=== PATIENT | male | born 1940 | race Caucasian/White ===

== ENCOUNTER 2020-04-02 14:22 | Emergency (ER) | payer MEDICARE, SELFPAY ==
[2020-04-02] VITALS (26 sets, daily range): BP systolic 121–160; BP diastolic 81–99; PULSE 81–141; RESP 14–31; TEMP 36.8; O2SAT 92–94; BMI 33.9
--- NOTE | 2020-04-02 16:44 | ECG_ITS ---
[facility] Test Date: 2020-04-02 Pat Name: Rafat Park Department: Room: Gender: Male Medical Practice Assistant: : 1940 Requested By: Devorah Herrera I Order Number: [id number] Jackie MD: Sandy Michele M.D. Measurements Intervals [place] Rate: 99 P: GA: -1 QRS: -74 QRSD: 150 T: 23 QT: 364 QTc: 469 Interpretive Statements ATRIAL FIBRILLATION MARKED LEFT AXIS DEVIATION [QRS AXIS < -30] RIGHT BUNDLE BRANCH BLOCK [120+ ms QRS DURATION, UPRIGHT V1, 40+ ms S IN I/aVL/V4/V5/V6] No previous ECG available for comparison Electronically Signed On 04-02-2020 23:39:31 FRUIT ROOM HAND by Sandy Michele M.D. [id number]
--- NOTE | 2020-04-02 16:44 | XR_ITS ---
WS: [id number] XR chest 1V portable [id number] REASON FOR EXAM: chest pain FINDINGS: The chest is unchanged compared to previous examination of 12/26/2019. There is a large hiatal hernia. The heart is mildly enlarged. No acute pulmonary parenchymal or pleural abnormality is identified. Mild changes of degenerative spondylosis in the lower and mid thoracic spine. XR/XR chest 1V portable [id number] IMPRESSION: No acute chest abnormality identified.
--- NOTE | 2020-04-02 16:47 | ED_ITS ---
HPI - Chest Pain General: Chief Complaint: Chest Pain Stated Complaint: Chest Pain Time Seen by Provider: 04/02/20 15:52 Source: patient and family () Mode of arrival: ambulatory History of Present Illness: HPI narrative: Intermittent left-sided chest pain for the last 2 months but got severe today. Pain is nonradiating, described as sharp. He denies nausea or vomiting, diaphoresis, dizziness. He wants to be evaluated as the pain is increasing. MD complaint: chest pain Onset (ago): month(s) (2) Timing of current episode: episodic Prior episodes: Yes Onset: during rest Pain location: substernal Pain radiation: none Quality: sharp Relieving factors: nothing Exacerbating factors: nothing Associated symptoms: Deny abdominal pain, diaphoresis, dyspnea, fever(s), leg edema, nausea, palpitations, sense of impending doom, syncope or vomiting Treatment prior to arrival: none Review of Systems General: Reports: 10 or more systems reviewed and unremarkable except in HPI and below Const: Denies: fever(s) or diaphoresis Eyes: Denies: change in vision or blurry vision ENMT: Denies: throat pain, enlarged tonsils, odynophagia, hoarseness, mouth pain or swelling of lips/tongue Card: Denies: palpitations or syncope Resp: Denies: dyspnea GI: Denies: abdominal pain, nausea or vomiting : Denies: flank pain, dysuria, urinary frequency, urinary urgency or urinary hesitancy Musc: Denies: neck pain, back pain or extremity swelling Skin/Breast: Denies: rash, pruritus or erythema Neuro: Denies: headache(s), numbness in extremities or weakness in extremities Endo: Denies: polyuria, polydipsia or tired all the time Physical Exam Const: COMMON NORMALS: no acute distress, average body habitus, patient oriented x3, no limitations, healthy appearing, alert and well nourished HENMT: COMMON NORMALS: normocephalic, atraumatic and moist oral mucous membranes HEAD & SCALP: normocephalic and atraumatic Neck/C-Spine: COMMON NORMALS: no meningeal signs and no JVD Chest: COMMONS NORMALS: normal inspection of the chest and normal palpation of entire chest wall Resp: COMMON NORMALS: normal respiratory effort, No retractions, No use of accessory muscles, clear to auscultation bilaterally and percussion normal AUSCULTATION: clear to auscultation bilaterally PERCUSSION: percussion normal Cardio: COMMON NORMALS: no JVD, regular rate, regular rhythm, S1 normal heart sound present, S2 normal heart sound present, No gallops present (Cardio), No clicks present (Cardio), No murmurs present (Cardio), No rub (Cardio) and Peripheral pulses 2+ throughout RATE: regular rate RHYTHM: regular rhythm HEART SOUNDS: S1 normal heart sound present and S2 normal heart sound present PERIPHERAL PULSES: Peripheral pulses 2+ throughout GI: COMMON NORMALS: Normal to inspection, nondistended, normoactive bowel sounds present, Soft to palpation, non-tender, No hepatosplenomegaly present, no masses and no bruits PALPATION: Yes Soft to palpation and Yes No hepatosplenomegaly present Extremity: COMMON NORMALS: normal to inspection, full ROM, capillary refill normal, no calf tenderness and no pedal edema Neuro: COMMON NORMALS: patient oriented x3 SENSORIUM/ORIENTATION: Yes alert MENINGEAL SIGNS: Yes no meningeal signs Skin: COMMON NORMALS: no rashes or lesions noted, no wounds, turgor normal, no jaundice, no petechiae and no mottling GENERAL SKIN EXAM: no rashes or lesions noted and turgor normal Course Reevaluation(s): Reevaluation #1: Discussed his lab and imaging findings with him. I explained my conversation with the radiologist and that the patient most likely has primary lung cancer. Advised outpatient work-up and I will make a referral to oncology and pulmonology for further evaluation. He voiced understanding and is in agreement with the plan. Time: 20:31 Vital Signs: Vital signs: Vital Signs Temperature 98.3 F 04/02/20 14:30 Pulse Rate 120 H 04/02/20 20:55 Respiratory Rate 14 04/02/20 20:55 Blood Pressure 150/99 04/02/20 20:55 Pulse Oximetry 93 04/02/20 20:55 MDM - Chest Pain MDM Narrative: Medical decision making narrative: Patient presents to the emergency department with chest pain that has been ongoing for about 2 months but worsened today. Unfortunately on examination and evaluation today a diagnosis of a lung mass was made which is likely malignant given all the characteristics on the CT scan. I explained as much to the patient and made a referral to oncology and pulmonology for further evaluation including possible biopsy. Medical Records: Attestation: I reviewed the patient's medical records. Lab Data: Attestation: I reviewed the patient's lab results. Labs: Lab Results 04/02/20 04/02/20 04/02/20 Range/Units 15:16 15:16 15:16 WBC 6.3 (4.0-10.0) 10^3/ uL RBC 5.57 H (4.1-5.3) 10^6/u L Hgb 15.1 (11.7-16.6) g/dL Hct 48.2 (42.0-52.0) % MCV 86.5 (80-94) fL MCH 27.1 L (28.0-34.0) pg MCHC 31.3 (30.0-36.0) g/dL RDW 14.0 (12.1-15.1) % Plt Count 248 (130-400) 10^3/c mm MPV 10.3 (7.4-10.4) fL Neut % (Auto) 57.1 % Lymph % (Auto) 25.9 % [place] % (Auto) 11.7 % Eos % (Auto) 3.7 % Baso % (Auto) 1.3 % Neut # (Auto) 3.60 (1.8-7.7) 10^3/u L Lymph # (Auto) 1.6 (0.8-4.8) 10^3/u L [place] # (Auto) 0.7 (0.2-0.9) 10^3/u L Eos # (Auto) 0.2 (0.0-0.8) 10^3/u L Baso # (Auto) 0.1 (0.0-0.1) 10^3/u L Nucleated RBC % (a uto) 0 % Nucleated RBCs # 0.0 /100WBC D-Dimer 1.67 H (0-0.59) ug/mIFE U Sodium 137 (136-145) mmol/L Potassium 4.1 (3.5-5.1) mmol/L Chloride 99 (98-107) mmol/L Carbon Dioxide 28 (22-29) mmol/L Anion Gap 14.1 (5-19) BUN 19 (8-23) mg/dL Creatinine 0.9 (0.7-1.2) mg/dL GFR Calculation Not Reportable Glucose 102 (65-115) mg/dL Calculated Osmolal ity 286 (285-295) mOsm/k g Calcium 9.6 (8.5-10.5) mg/dL Total Bilirubin 0.3 (0.15-1.2) mg/dL AST 26 (0-40) U/L ALT 17 (0-41) U/L Alkaline Phosphata se 86 (40-130) IU/L Creatine Kinase 85 (39-308) U/L Troponin T Baselin e (0-15) ng/L Troponin T 120 Min [place] Delta Troponin T NT-Pro-B Natriuret Pep 197 (0-450) pg/mL Total Protein 7.3 (6.6-8.7) g/dL Albumin 4.4 (3.5-5.2) g/dL Globulin 2.9 (1.3-4.6) g/dL Lipase 49 (13-60) U/L 04/02/20 04/02/20 04/02/20 Range/Units 15:16 18:19 18:52 WBC (4.0-10.0) 10^3/ uL RBC (4.1-5.3) 10^6/u L Hgb (11.7-16.6) g/dL Hct (42.0-52.0) % MCV (80-94) fL MCH (28.0-34.0) pg MCHC (30.0-36.0) g/dL RDW (12.1-15.1) % Plt Count (130-400) 10^3/c mm MPV (7.4-10.4) fL Neut % (Auto) % Lymph % (Auto) % [place] % (Auto) % Eos % (Auto) % Baso % (Auto) % Neut # (Auto) (1.8-7.7) 10^3/u L Lymph # (Auto) (0.8-4.8) 10^3/u L [place] # (Auto) (0.2-0.9) 10^3/u L Eos # (Auto) (0.0-0.8) 10^3/u L Baso # (Auto) (0.0-0.1) 10^3/u L Nucleated RBC % (a uto) % Nucleated RBCs # /100WBC D-Dimer (0-0.59) ug/mIFE U Sodium (136-145) mmol/L Potassium (3.5-5.1) mmol/L Chloride (98-107) mmol/L Carbon Dioxide (22-29) mmol/L Anion Gap (5-19) BUN (8-23) mg/dL Creatinine (0.7-1.2) mg/dL GFR Calculation Glucose (65-115) mg/dL Calculated Osmolal ity (285-295) mOsm/k g Calcium (8.5-10.5) mg/dL Total Bilirubin (0.15-1.2) mg/dL AST (0-40) U/L ALT (0-41) U/L Alkaline Phosphata se (40-130) IU/L Creatine Kinase (39-308) U/L Troponin T Baselin e 22 H (0-15) ng/L Troponin T 120 Min [place] Cancelled 23.78 H Delta Troponin T Cancelled 1.78 NT-Pro-B Natriuret Pep (0-450) pg/mL Total Protein (6.6-8.7) g/dL Albumin (3.5-5.2) g/dL Globulin (1.3-4.6) g/dL Lipase (13-60) U/L Imaging Data^: CXR: Attestation: I personally reviewed and interpreted this imaging study as follows: Radiologist's impression: [address] [address] XRay Report Signed Patient: Robert Park #: [id number] : 1941Acct#:[id number] Age/Sex: 79 / MADM Date: 04/02/20 Loc: ERRoom/Bed: Attending Dr: Ordering Provider/Ordering MD: Devorah Ortiz MD, [facility] of Service: 04/02/20 Procedure(s): XR chest 1V portable [id number] Accession Number(s): [id number] Report Number: [id number] WS: [id number] XR chest 1V portable [id number] REASON FOR EXAM: chest pain FINDINGS: The chest is unchanged compared to previous examination of 12/26/2019. There is a large hiatal hernia. The heart is mildly enlarged. No acute pulmonary parenchymal or pleural abnormality is identified. Mild changes of degenerative spondylosis in the lower and mid thoracic spine. XR/XR chest 1V portable [id number] IMPRESSION: No acute chest abnormality identified. Dictated By:Eddie Jimenez Jr, MD Signed By:Eddie Jimenez Jr MDSigned Date/Time:04/02/201727 DD/ 24 CTA Chest: Attestation: I personally reviewed and interpreted this imaging study as follows: Radiologist's impression: [address] [place] [address] CT Scan Report Signed with Addenda Patient: Robert Park #: [id number] : 1941Acct#:[id number] Age/Sex: 79 / MADM Date: 04/02/20 Loc: ERRoom/Bed: Attending Dr: Ordering Provider/Ordering MD: Devorah Ortiz MD, [facility] [place] of Service: 04/02/20 Procedure(s): CT angio chest PE protcl [id number] Accession Number(s): [id number] Report Number: [id number]/CT angio chest PE protcl [id number] THIS REPORT CONTAINS FINDINGS THAT MAY BE CRITICAL TO PATIENT CARE. The findings were verbally communicated via telephone conference with DEVORAH ORTIZ at 8:22 PM ELECTRICAL SYSTEM SPECIALIST on 04/02/2020. The findings were acknowledged and understood. Radiation Dose CTDIVOL = (mGy): DLP = 639.41 (mGy-cm) Addendum Dictated By: Nitish Moreau Addendum Signed By: Rody Moreau Date/Time:04/02/202037 Addendum Cosigned By: PROCEDURE INFORMATION: Exam: CT Angiography Chest With Contrast Exam date and time: 04/02/2020 7:30 PM Age: 79 years old Clinical indication: Shortness of breath; Chest pain; Additional info: Chest pain, tachycardia, SOB TECHNIQUE: Imaging protocol: Computed tomographic angiography of the chest with intravenous contrast. 3D rendering (Not supervised by radiologist): MIP and/or 3D reconstructed images were created by the technologist. Radiation optimization: All CT scans at this facility use at least one of these dose optimization techniques: automated exposure control; mA and/or kV adjustment per patient size (includes targeted exams where dose is matched to clinical indication); or iterative reconstruction. Contrast material: OMNI 350; Contrast volume: 81 ml; Contrast route: INTRAVENOUS (IV); COMPARISON: No relevant prior studies available. RADIATION DOSE METRICS: Total DLP (mGy-cm): 639.41 FINDINGS: Pulmonary arteries: No visible evidence of pulmonary embolism/pulmonary arterial thrombus. Aorta: The thoracic aorta is nonaneurysmal. No intimal flap or dissection. Moderate arterial sclerotic disease. Tortuous thoracic aorta which can be seen in hypertensive cardiovascular disease Lungs: Small 7 mm pulmonary nodule right lower lobe potential hematogenous metastatic focus. Centrilobular emphysema. No visible active interstitial or alveolar airspace disease. Pleural space: Scant right pleural effusion. Numerous small subpleural based nodules right lung most likely metastatic foci. Largest subpleural metastatic soft tissue nodule measures approximately 26 mm located near the costovertebral junction of T11 on the right. Heart: Coronary artery disease. No visible pericardial effusion. Left ventricular prominence. Mediastinal space: Large middle mediastinal bulky tumor mass measuring approximately 9.9 cm x 5.8 cm x 9.7cm. Direct tumor extension into the right hilum. Pretracheal superior mediastinal tumor mass, which displaces the thyroid, measures approximately 33 mm x 20 mm x 30 mm. Anterior mediastinal tumor nodule measures 21 mm x 15 mm x 18 mm. Other anterior, middle, and posterior mediastinal tumor foci are present. The aformention findings could be secondary to malignant primary lung carcinoma versus malignant lymphoma as primary differential considerations. Lymph nodes: See Mediastinal space finding. Liver: Ill-defined right hepatic lobe tumor mass measuring approximately 65 mm x 55 mm x 56 mm. Gallbladder and bile ducts: Cholelithiasis. Bones/joints: No visible acute osseous abnormality. No visible osteolytic or osteoblastic destructive process. Old left rib fractures. Soft tissues: Unremarkable. Other findings: Suspected small nonobstructing mucus plaque proximal left mainstem bronchus. Large hiatal hernia. CT/CT angio chest PE protcl [id number] IMPRESSION: 1. No visible evidence of pulmonary embolism/pulmonary arterial thrombus. 2. Large middle mediastinal bulky tumor mass with evidence of numerous satellite metastatic tumor involvement of the superior, anterior, middle, and posterior mediastinum. 3. Numerous small subpleural based nodules right lung most likely metastatic foci. 4. Scant malignant right pleural effusion. 5. The aformention findings could be secondary to malignant primary lung carcinoma versus malignant lymphoma as primary differential considerations. 6. Right hepatic lobe tumor mass most likely metastasis. 7. Small 7 mm pulmonary nodule right lower lobe most likely hematogenous metastatic focus. 8. Centrilobular emphysema. 9. Other nonurgent, nonemergent, chronic, and age related findings as detailed in text above. Radiation Dose CTDIVOL = (mGy): DLP = 639.41 (mGy-cm) Dictated By:Nitish Moreau Signed By:Nitish MoreauSigndaniel Date/Time:04/02/202037 DD/ 35 EKG Data^: EKG 1: Attestation: I personally reviewed and interpreted this EKG as follows: EKG interpretation date: 04/02/20 EKG interpretation time: 18:26 Prior EKG tracings: not available for review Interpretation: Sinus rhythm with frequent premature complexes. Heart rate 92 bpm. Right bundle branch block. Right axis deviation. No ST changes. Discharge Plan Discharge Patient Disposition: Home Clinical Impression: Mass of lung Condition: Stable Prescriptions: [place] 5-325 mg tablet 1 tab PO Q8H PRN (Reason: pain) Qty: 12 RF: 0 Continued ipratropium-albuterol 0.5 mg-3 mg(2.5 mg base)/3 mL solution for nebulization See Rx Instructions .ROUTE .COMPLEX PRN (Reason: cough/shortness of breath) RF: 0 omeprazole 20 mg Capsule,Delayed Release(Dr/Ec) 20 mg PO DAILY RF: 0 aspirin 81 mg Tablet 81 mg PO DAILY RF: 0 pravastatin 20 mg tablet 20 mg PO DAILY RF: 0 hydrochlorothiazide 25 mg tablet 25 mg PO DAILY RF: 0 albuterol sulfate 90 mcg/actuation HFA aerosol inhaler See Rx Instructions .ROUTE .COMPLEX PRN (Reason: Shortness Of Breath) RF: 0 Symbicort 160-4.5 mcg/actuation HFA aerosol inhaler 2 puff INHALATION BID RF: 0 Mucinex 1,200 mg Tablet Extended Release 12hr 1,200 mg PO DAILY RF: 0 Discharge Orders: Discharge Order (Routine); Ordered 04/02/20 Ordered By: Devorah Ortiz Referrals: Pedro Pablo Rasheed DO [Primary Care Provider] - 1-3 days Discharge Diet: Usual diet Discharge Activity: Increase activity as tolerated Patient Instructions: Pulmonary Nodules (ED) Activity Restrictions/Additional Instructions: Return for any new or worsening symptoms. Take the pain medication as needed for pain. You will be contacted by case management to schedule an outpatient office visit with the lung specialist and another one with the cancer doctor. Follow-up with your primary care provider within 3 days. Coding Level of Care Code ED Bank Officer for Blanca Snell
[2020-04-02] MEDS: nitroglycerin 1 gm/inch oint Pkt 1 INCH TOPICAL (17:15)
[2020-04-02] MEDS: aspirin 81 mg Chew Tablet 324 MG PO (17:15)
[2020-04-02 17:16] LABS: Basophils # 0.1 10^3/uL (0.0-0.1); Basophils % 1.3 %; Eosinophils # 0.2 10^3/uL (0.0-0.8); Eosinophils % 3.7 %; Hematocrit 48.2 % (42.0-52.0); Hemoglobin 15.1 g/dL (11.7-16.6); Lymphocytes # 1.6 10^3/uL (0.8-4.8); Lymphocytes % 25.9 %; Mean Corpuscular HGB Conc 31.3 g/dL (30.0-36.0); Mean Corpuscular Hemoglobin 27.1 pg (28.0-34.0); Mean Corpuscular Volume 86.5 fL (80-94); Mean Platelet Volume 10.3 fL (7.4-10.4); Monocytes # 0.7 10^3/uL (0.2-0.9); Monocytes % 11.7 %; Neutrophils % 57.1 %; Nucleated Red Blood Cells % 0 %; Platelet Count 248 10^3/cmm (130-400); Red Blood Count 5.57 10^6/uL (4.1-5.3); White Blood Count 6.3 10^3/uL (4.0-10.0)
[2020-04-02 17:23] LABS: D Dimer 1.67 ug/mIFEU (0-0.59)
[2020-04-02 18:00] LABS: Albumin Level 4.4 g/dL (3.5-5.2); Blood Urea Nitrogen 19 mg/dL (8-23); Calcium 9.6 mg/dL (8.5-10.5); Carbon Dioxide 28 mmol/L (22-29); Chloride 99 mmol/L (98-107); Globulin 2.9 g/dL (1.3-4.6); Glucose 102 mg/dL (65-115); Lipase 49 U/L (13-60); Osmolality Calculated 286 mOsm/kg (285-295); Sodium 137 mmol/L (136-145); Total Bilirubin 0.3 mg/dL (0.15-1.2); Total Protein 7.3 g/dL (6.6-8.7)
[2020-04-02 18:36] LABS: Alanine Aminotransferase 17 U/L (0-41); Anion Gap 14.1 (5-19); Aspartate Amino Transferase 26 U/L (0-40); Creatine Phosphokinase 85 U/L (39-308); NT Pro B Type Natriuretic Pept 197 pg/mL (0-450); Potassium 4.1 mmol/L (3.5-5.1)
[2020-04-02 18:37] LABS: Alkaline Phosphatase 86 IU/L (40-130)
[2020-04-02 18:44] LABS: Troponin(5th) Baseline 22 ng/L (0-15)
--- NOTE | 2020-04-02 18:44 | ECG_ITS ---
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 Measurements Intervals [place] Rate: 92 P: 73 MS: 204 QRS: 255 QRSD: 144 T: 33 QT: 363 QTc: 451 Interpretive Statements SINUS RHYTHM WITH FREQUENT SUPRAVENTRICULAR PREMATURE COMPLEXES RIGHT AXIS DEVIATION [QRS AXIS > 100] RIGHT BUNDLE BRANCH BLOCK [120+ ms QRS DURATION, UPRIGHT V1, 40+ ms S IN I/aVL/V4/V5/V6] Compared to ECG 04/02/2020 14:25:15 Right-axis deviation now present Atrial fibrillation no longer present Left-axis deviation no longer present Electronically Signed On 04-02-2020 18:50:35 CONE SEWER by Sandy Michele M.D. [id number] f
--- NOTE | 2020-04-02 19:00 | PC.NURSE ---
received report from PHIL Cabezas. Waiting on
--- NOTE | 2020-04-02 19:14 | PC.NURSE ---
Pt waiting for results. Pain is 2-3/10, much better per pt . Dull pain only.
--- NOTE | 2020-04-02 19:22 | CTR_ITS ---
PROCEDURE INFORMATION: Exam: CT Angiography Chest With Contrast Exam date and time: 04/02/2020 7:30 PM Age: 79 years old Clinical indication: Shortness of breath; Chest pain; Additional info: Chest pain, tachycardia, SOB TECHNIQUE: Imaging protocol: Computed tomographic angiography of the chest with intravenous contrast. 3D rendering (Not supervised by radiologist): MIP and/or 3D reconstructed images were created by the technologist. Radiation optimization: All CT scans at this facility use at least one of these dose optimization techniques: automated exposure control; mA and/or kV adjustment per patient size (includes targeted exams where dose is matched to clinical indication); or iterative reconstruction. Contrast material: OMNI 350; Contrast volume: 81 ml; Contrast route: INTRAVENOUS (IV); COMPARISON: No relevant prior studies available. RADIATION DOSE METRICS: Total DLP (mGy-cm): 639.41 FINDINGS: Pulmonary arteries: No visible evidence of pulmonary embolism/pulmonary arterial thrombus. Aorta: The thoracic aorta is nonaneurysmal. No intimal flap or dissection. Moderate arterial sclerotic disease. Tortuous thoracic aorta which can be seen in hypertensive cardiovascular disease Lungs: Small 7 mm pulmonary nodule right lower lobe potential hematogenous metastatic focus. Centrilobular emphysema. No visible active interstitial or alveolar airspace disease. Pleural space: Scant right pleural effusion. Numerous small subpleural based nodules right lung most likely metastatic foci. Largest subpleural metastatic soft tissue nodule measures approximately 26 mm located near the costovertebral junction of T11 on the right. Heart: Coronary artery disease. No visible pericardial effusion. Left ventricular prominence. Mediastinal space: Large middle mediastinal bulky tumor mass measuring approximately 9.9 cm x 5.8 cm x 9.7cm. Direct tumor extension into the right hilum. Pretracheal superior mediastinal tumor mass, which displaces the thyroid, measures approximately 33 mm x 20 mm x 30 mm. Anterior mediastinal tumor nodule measures 21 mm x 15 mm x 18 mm. Other anterior, middle, and posterior mediastinal tumor foci are present. The aformention findings could be secondary to malignant primary lung carcinoma versus malignant lymphoma as primary differential considerations. Lymph nodes: See Mediastinal space finding. Liver: Ill-defined right hepatic lobe tumor mass measuring approximately 65 mm x 55 mm x 56 mm. Gallbladder and bile ducts: Cholelithiasis. Bones/joints: No visible acute osseous abnormality. No visible osteolytic or osteoblastic destructive process. Old left rib fractures. Soft tissues: Unremarkable. Other findings: Suspected small nonobstructing mucus plaque proximal left mainstem bronchus. Large hiatal hernia. CT/CT angio chest PE protcl [id number] IMPRESSION: 1. No visible evidence of pulmonary embolism/pulmonary arterial thrombus. 2. Large middle mediastinal bulky tumor mass with evidence of numerous satellite metastatic tumor involvement of the superior, anterior, middle, and posterior mediastinum. 3. Numerous small subpleural based nodules right lung most likely metastatic foci. 4. Scant malignant right pleural effusion. 5. The aformention findings could be secondary to malignant primary lung carcinoma versus malignant lymphoma as primary differential considerations. 6. Right hepatic lobe tumor mass most likely metastasis. 7. Small 7 mm pulmonary nodule right lower lobe most likely hematogenous metastatic focus. 8. Centrilobular emphysema. 9. Other nonurgent, nonemergent, chronic, and age related findings as detailed in text above. Radiation Dose CTDIVOL = (mGy): DLP = 639.41 (mGy-cm)
[2020-04-02 19:40] LABS: Troponin 5 2HR 23.78 ng/L (0-15); Troponin 5 2HR Delta 1.78 ABS# (0-10)
[2020-04-02] MEDS: iohexol 350 mg/mL 100 mL Btl IV (19:52)
--- NOTE | 2020-04-02 20:36 | PC.NURSE ---
waiting for results. Pt continues to deny pain
--- NOTE | 2020-04-03 09:58 | DCPLANNER ---
quality assurance manager had message to schedule a follow up appointment for patient with oncology, and pulmonology. quality assurance manager called oncology, spoke with Yadira Miles, was told that patient would need to be seen by pulmonology first. quality assurance manager called [facility], spoke with Andree, a follow up appointment was scheduled for , April 05, 2020 at 9:[address] Bedolla. quality assurance manager called patient to inform patient of the scheduled appointment, unable to speak with patient at this time. A voicemail was left for patient to return leather case finisher phone call for appointment information.
--- NOTE | 2020-05-25 12:15 | DCPLANNER ---
Patient had a follow up appointment scheduled for 04.05.20 with [facility] - patient did attend appointment.
== END 2020-04-02 20:56 | disposition home or self-care (01) ==
PROVIDERS: Emergency Provider Family Medicine; PCP Internal Medicine
DX: R91.8 Other nonspecific abnormal finding of lung field (principal); Z79.82 Long term (current) use of aspirin
CPT/HCPCS: 12345; 71045; 71275; 80053; 82550; 83690; 83880; 84484; 85025; 85378; 93005; 99283; 99284; Q9967

== ENCOUNTER → 2020-04-04 05:22 | Outpatient (BNVA) | payer MEDICARE, SELFPAY | PROVIDERS: PCP Internal Medicine; Visit Provider Internal Medicine Critical Care Medicine | DX: R91.8 Other nonspecific abnormal finding of lung field (principal) | CPT/HCPCS: 87426 ==

== ENCOUNTER 2020-04-06 08:49 | Day surgery (SDC) | payer MEDICARE, SELFPAY ==
[2020-04-05 16:42] VITALS: BMI 33.1
[2020-04-06] VITALS (8 sets, daily range): BP systolic 113–192; BP diastolic 64–100; PULSE 81–122; RESP 16–20; TEMP 36.5–36.6; O2SAT 82–94
--- NOTE | 2020-04-06 08:51 | ANES.PREANE2 ---
Pre-Anesthetic Assessment Pre-Anesthetic Assessment: Height/Weight: Height 1.85 m Weight 113.852 kg Preop Diagnosis: Suspected lung cancer Proposed Procedure: Operation Date: 04/06/20 10:10 Proposed Procedures p Bronchoscopy R91.1 12200(Not Applicable) - Carola Bedolla MD s Ebus R91.1 05722(Not Applicable) - Carola Bedolla MD Was Beta Sergei taken within 24 hours: N/A Social: Social History: Tobacco and No alcohol Exam: Pre-Anes Outpt Exam: alert and oriented x 3 Additional Exam Findings (including area of procedure): Markedly diminished BS Airway: Submandibular: WNL Cervical ROM: WNL MP: 2 Pulmonary: Pulmonary: COPD, Cough and SOB CV/HEM: CV/HEM: CAD, CHF, HTN and NC : : Chronic renal Insufficiency Hepatic: Hepatic: None reported GI: GI: GERD Metabolic: Metabolic: DM and Hyperlipidemia Musc/skel: Musc/skel: OA/DJD Neuropsych: Neuropsych: None reported Anesthetic Plan: ASA status: 4 Anesthesia: General Other: Post op respiratory complications disc including cough and vent needs PFSH Anesthesia PFSH: Medical History Asthma COPD (chronic obstructive pulmonary disease) GERD (gastroesophageal reflux disease) HTN (hypertension) Hyperlipidemia Meniere disease Surgical History History of appendectomy Social History Smoking and tobacco status: former smoker Quit status (tobacco): has quit using tobacco Year quit tobacco: 2005 - Hx of 2PPD x 50 Alcohol intake: never Lives independently: Yes Household members: spouse Marital status: Current occupational status: retired History of recent travel: No Current gender identity: Male Data Anesthesia Cardiac Studies: No Data to Display
[2020-04-06] MEDS: sodium chloride 0.9% 1,000 ML 30 ML IV (10:05)
--- NOTE | 2020-04-06 12:02 | W.PM.OPSUD ---
Surgery/Procedure H&P Update DATE OF PROCEDURE: April 06, 2020 DATE H&P PERFORMED: 04/05/20 H&P UPDATE INFORMATION: I have reviewed H&P completed within last 30 days, I have examined patient prior to procedure and No changes to prior documentation PREOP DIAGNOSIS: Suspected lung cancer PLANNED PROCEDURE: Bronchoscopy with inspection of the airway, possible endobronchial biopsies, bronchoalveolar lavage, endobronchial survey transbronchial needle aspiration of lymph nodes. Operation Date: 04/06/20 10:10 Proposed Procedures p Bronchoscopy R91.1 92807(Not Applicable) - Carola Bedolla MD s Ebus R91.1 47481(Not Applicable) - Carola Bedolla MD
--- NOTE | 2020-04-06 12:41 | ECG_ITS ---
[facility] Test Date: 2020-04-06 Pat Name: Rafat Park Department: Room: Gender: Male Maintenance Controller: : 1940 Requested By: City[employer]er Order Number: [id number] Jackie MD: Loyd Baxter M.D. Measurements Intervals [place] Rate: 81 P: 74 NC: 206 QRS: -89 QRSD: 166 T: 46 QT: 439 QTc: 511 Interpretive Statements SINUS RHYTHM WITH FREQUENT SUPRAVENTRICULAR PREMATURE COMPLEXES MARKED LEFT AXIS DEVIATION [QRS AXIS < -30] RIGHT BUNDLE BRANCH BLOCK [120+ ms QRS DURATION, UPRIGHT V1, 40+ ms S IN I/aVL/V4/V5/V6] Compared to ECG 04/02/2020 18:26:32 Left-axis deviation now present Right-axis deviation no longer present Electronically Signed On 04-06-2020 19:51:37 [employer]IST by Loyd Baxter M.D. [id number]
--- NOTE | 2020-04-06 12:49 | SUR.PHASEII ---
returned from or. EKG done denies chest pain at this time. pt re-evaluated by Dr Bedolla.
--- NOTE | 2020-04-06 13:38 | SUR.PHASEII ---
Dr Bedolla into re-evaluate pt, who agrees to have procedure perfomed.
[2020-04-06] MEDS: lidocaine 1% INJ 20 mL XX (14:00)
--- NOTE | 2020-04-06 14:18 | P.OP_ITS ---
Operative Report Date of procedure: April 06, 2020 Pre-op Diagnosis: Suspected lung cancer Post-op diagnosis: same Brief History: This is a 79-year-old gentleman with recently identified right mediastinal mass with possible metastatic disease came in for bronchoscopic evaluation. In the preop area, the patient had complained of chest pain which has been present for the last 2 months as well as occasional episodes of paroxysmal atria l fibrillation. The risk of the procedure was explained to the patient and his in detail and they decided to proceed with the procedure rather than getting a cardiac eval first. The patient was recently in the emergency department for evaluation of chest pain at which time the mass was diagnosed. There is no significant delta change in the high-sensitivity troponin. Procedure: Name of the procedure: Bronchoscopy with inspection of the airway, endobronchial ultrasound-guided transbronchial needle aspiration right mediastinal mass. Indication: Suspected lung cancer Anesthesia: General anesthesia. Local anesthesia: The kirsty in the right and left mainstem bronchi were anesthetized with 1% lidocaine, 3 mL. Description of the procedure: The procedure was explained to the patient and the consent was obtained. The patient was brought to the OR. The procedure was performed with LMA and general anesthesia. Following establishing airway general anesthesia was initiated.the bronchoscope was introduced through the LMA. The vocal cords anesthetized with 1% lidocaine. The bronchoscope was introduced through the vocal cords and the trachea, kirsty and right mainstem bronchus were anesthetized with 1% lidocaine. There was generalized erythema throughout the airways. No endobronchial lesions were identified. Endobronchial ultrasound was then introduced. Large heterogeneous right paratracheal mass was identified. Fine-needle aspiration was performed from the mass and sent for cytology. Samples: 1. The fine-needle aspiration from the right mediastinal mass was sent for cytology and histopathology. Complications: There was no immediate complications.
--- NOTE | 2020-04-06 14:37 | PTH.EBUS ---
Endobronchial Ultrasound Specimen(s): Right paratracheal mass Gross: Specimen is received in 2 slides red ferguson material labeled with the patients name and MRN number, 2-3 mm, 4 slides Diffquik for rapid onsite evaluation. Preliminary Impression: Lung, right paratracheal mass, biopsy: - Positive for malignancy. - Features most suggestive of high grade carcinoma; small cell carcinoma. - Specimen Information Pathologist: Shannen Hernandes Date: 04/06/20 Specimen reported at what time: 14:15 - Clinician Specimen collection time: 14:25 Clinician reported to: Carola Bedolla
--- NOTE | 2020-04-06 14:39 | ANE.PACU2 ---
Inpatient post-anesthesia follow up: Airway intact: Yes Vital signs: Temperature 97.7 F Pulse Rate 85 Respiratory Rate 16 Blood Pressure 143/100 Pulse Oximetry 93 Oxygen Delivery Me thod Nasal Cannula Oxygen Flow Rate 2 Fraction of Inspir ed Oxygen Hydration adequate: Yes Nausea and vomiting: No Pain level: 2 Mental status: Baseline
[2020-04-06] MEDS: ipratropium 0.5 mg/2.5 mL Neb INHALATION (14:57)
== END 2020-04-06 15:20 | disposition home or self-care (01) ==
PROVIDERS: PCP Internal Medicine; Visit Provider Internal Medicine Critical Care Medicine
PROC: BB4BZZZ Ultrasonography of Pleura (ICD-10-PCS; principal; 2020-04-06 14:00)
PROC: 0BJ08ZZ Inspection of Tracheobronchial Tree, Via Natural or Artificial Opening Endoscopic (ICD-10-PCS; CPT 31622; 2020-04-06 14:00)
DX: C34.91 Malignant neoplasm of unspecified part of right bronchus or lung (principal); R07.9 Chest pain, unspecified; I48.0 Paroxysmal atrial fibrillation; I25.10 Atherosclerotic heart disease of native coronary artery without angina pectoris; I50.9 Heart failure, unspecified; I25.2 Old myocardial infarction; I13.0 Hypertensive heart and chronic kidney disease with heart failure and stage 1 through stage 4 chronic kidney disease, or unspecified chronic kidney disease; N18.9 Chronic kidney disease, unspecified; K21.9 Gastro-esophageal reflux disease without esophagitis; E11.22 Type 2 diabetes mellitus with diabetic chronic kidney disease; E78.5 Hyperlipidemia, unspecified; Z87.891 Personal history of nicotine dependence; J43.9 Emphysema, unspecified; J96.11 Chronic respiratory failure with hypoxia; Z79.82 Long term (current) use of aspirin; Z79.891 Long term (current) use of opiate analgesic; J45.909 Unspecified asthma, uncomplicated
CPT/HCPCS: 12345; 31625; 31627; 80500; 88309; 93005; 94640; J1100; J2250; J2704; J3010; J3490; J7030; J7611; J7644

== ENCOUNTER 2020-04-24 09:25 | Outpatient (CLI) | payer MEDICARE, SELFPAY ==
--- NOTE | 2020-04-24 12:54 | ONC CON_ITS ---
Dr. Raymond New Patient Note Patient: Rafat Park Unit #: [id number]: 1940 Dicatated By: Pedro Pablo Raymond M.D.Date of Visit: Apr 24, 2020 Onc MED New Patient/Consult Referring Physician: Dr. MARY LOU BEDOLLA M.D. Chief Complaint: Lung cancer. History of Present Illness: This is a 79-year-old man with newly diagnosed small cell lung cancer, stage IVB ([place], N3, M1c). On 04/02/2020 had presented to the emergency room with shortness of breath and chest pain. His CT pulmonary angiogram showed no evidence of pulmonary embolism. However, there were multiple small pleural-based nodules noted in the right lung and there was a bulky mass noted in the middle mediastinum measuring 9.9 x 5.8 x 9.7 cm. Tumor was noted to extend into the right hilum. A pretracheal superior mediastinal mass measured 3.3 x 2.0 x 3.0 cm and an anterior mediastinal tumor nodule measured 2.1 x 1.5 x 1.8 cm. Other anterior, middle, and posterior mediastinal tumor foci were present. There was a small right pleural effusion. Also noted was a right hepatic lobe mass measuring 6.5 x 5.5 x 5.6 cm, thought to be likely metastasis. He was referred to Dr. Bedolla and 04/06/2020 underwent bronchoscopy/EBUS with FNA biopsy of right paratracheal mass. There were no endobronchial lesions identified. The FNA biopsy was positive for small cell carcinoma favoring lung origin. A staging PET/CT 04/17/2020 showed multiple small FDG avid pleural-based lesions in the right lung, a highly FDG avid anterior mediastinal mass with SUV 11.9, highly FDG avid right paratracheal mass with SUV 16.55, and FDG avid hilar lymphadenopathy bilaterally. There was additional FDG avid adenopathy nodes in the upper abdomen and the mass in the right lobe of the liver was also FDG avid with SUV 17.14. There were multiple sites of FDG avid skeletal lesions including the cervical, thoracic, and lumbar spine, pelvis, sternum, and rib cage. He is seen now for further management. His main complaint is that he is having pain in his right lower chest/right upper quadrant area, significant enough that he is having to try and sleep in a recliner. The pain is worse when he takes a deep breath. He is very weak, and he has very limited activity tolerance. He is having difficulty ambulating. His ECOG score is 3. His appetite is still okay. His weight is down a few pounds. He has no fever or night sweats. He is short of breath with any activity, and he is on continuous oxygen. He has cough productive of white or creamy sputum. He has had no hemoptysis. He has constipation at times. He has no other GI or complaints. He is having some soreness in the right lateral chest area, but he otherwise is not having any significant joint or bone pain. He does not complain of headache or dizziness. He has no focal neurologic symptoms. 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 Past Surgical History: He underwent bronchoscopy/EBUS and FNA biopsy of right paratracheal mass on 04/06/2020. 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 Medications: Acetaminophen 1 Tablet (of 500 mg) Oral daily PRN, Aspirin 1 Tablet Tablet, chewable Oral daily, hydroCHLOROthiazide 1 Tablet (of 25 mg) Oral daily, Mucinex 1 Tablet Tablet SR 12 HR Oral daily, Omeprazole 1 Capsule (of 20 mg) Capsule Delayed Release Oral daily, Pravastatin Sodium 1 Tablet (of 20 mg) Oral daily, Spiriva Respimat 1 Puff(s) (of 2.5 mcg/act) Aerosol, solution Inhalation daily PRN, Symbicort 1 Puff(s) (of 160-4.5 mcg/act) Aerosol Inhalation daily PRN, Ventolin HFA 1 Puff(s) (of 108 (90 base) mcg/act) Aerosol, solution Inhalation daily PRN Allergies: No Known Allergies. Social History: Mr. Park is . He has a history of smoking 2 packs of cigarettes daily for 40 years. He quit smoking in 2006. He has some alcohol use, typically 2 to 3 cans of beer weekly. Family History: Mother and father in a motor vehicle accident, father at age 64 and mother at age 62. A 66-year-old brother has COPD. Review Of Symptoms: Constitutional - He is generally weak. His activity is very limited. He has difficulty ambulating. His appetite is okay. His weight is down a few pounds. He has no fever or night sweats. ECOG score is 3, Eyes - No change in vision, ENMT - He has hearing loss. No tinnitus. No sinus congestion/drainage. No mouth sores. No sore throat or difficulty swallowing, Hematologic/Lymphatic - No abnormal bruising or bleeding, Respiratory - He has short of breath with any activity. He is on continuous oxygen. He has cough productive of white or creamy sputum. No pleuritic pain or hemoptysis, Cardiovascular - No angina pain. No palpitations, Gastrointestinal - He has been having pain in his right upper quadrant/epigastric area. No nausea or vomiting. His acid reflux is managed adequately with omeprazole. He sometimes has constipation. No blood in the stool or black stools, Genitourinary (M) - No dysuria or hematuria. No urinary frequency. No urgency or incontinence, Musculoskeletal - Has had some soreness in the right lateral chest area. He has no other joint or bone pain, Integumentary - No skin rash, Neurologic - No headache or dizziness. No numbness or tingling. No other focal neurologic symptoms, Psychiatric - No anxiety or depression. He has having difficulty sleeping because of pain and shortness of breath. Vital Signs: Performed on Apr 24, 2020 10:26: 5, 33.35 (HIGH), 2.38 sq.m, 73.00 in, 94 % (LOW), 90 /min, 26 /min, 168/89 mm(hg) (HIGH), 98.0 F (LOW), and 252.8 lbs (HIGH). Physical Examination: Constitutional - He appears generally weak, and he has limited mobility, Eyes - Sclerae nonicteric. Conjunctivae clear, ENMT - No lesions noted in the oral cavity, Hematologic/Lymphatic - No cervical, clavicular, or axillary adenopathy, Respiratory - Lungs sound clear with markedly diminished air movement bilaterally, Cardiovascular - The heart tones are distant. The rhythm appears regular. There is no murmur, gallop, or rub noted, Abdomen - Soft. There is mild tenderness in the medial right upper quadrant/epigastric area. Liver and spleen are not enlarged. There is no abdominal mass or ascites noted and there is no inguinal adenopathy, Extremities - There is mild pedal edema. Dorsalis pedis pulses are palpable bilaterally, Integumentary - No rashes. No suspicious skin lesions noted, Neurologic - No focal neurologic deficits noted. Impression: 1. 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 By PET/CT, she has extensive disease including multiple pleural-based metastatic lesions in the right lung and bulky mediastinal lymph node involvement as well as liver and bony metastatic disease. A primary lesion is not clearly identifiable, but the pattern of metastatic disease suggests that the most likely source would be the right lung. 2. He underwent bronchoscopy/EBUS with FNA biopsy of right paratracheal mass on 04/06/2020. 3. He has underlying COPD. His other medical illnesses include: 4. Hypertension. 5. Hyperlipidemia. 6. 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 Plan: The patient presents with extensive stage small cell lung cancer. He is significantly symptomatic. He has poor performance status with very limited activity tolerance. He has difficulty ambulating to the point that it does affect his ability to perform ADLs. He also is having difficulty sleeping due to pain in his lower chest/upper abdomen. We discussed the fact that his disease is not curable and that with extensive involvement it will not be amenable to either surgery or radiation. However, there is a fairly high probability of response to systemic therapy, in the range of 60 to 70%. Currently the best outcomes have been seen with a combination of chemotherapy and immunotherapy. As such, he is recommended to undergo a trial of therapy with carboplatin/etoposide chemotherapy in combination with atezolizumab, per NCCN guidelines. I reviewed anticipated side effects with the chemotherapy including the potential for nausea/vomiting, alopecia, fatigue, and low blood counts, among others. Side effects with immunotherapy also were reviewed, occluding the potential for pneumonitis. He is agreeable to treatment as recommended, and he will return to begin cycle 1 pending verification of insurance coverage. In the meantime, he will be scheduled MRI of the brain to complete his staging and he will be given a prescription for immediate release oxycodone for his pain. In addition, I will request a front wheeled walker, as he does have an impairment of mobility which affects his ability to perform ADLs. Signed By: Pedro Pablo Raymond M.D. <<Signature on File>>
== END 2020-04-24 09:26 | disposition home or self-care (01) ==
PROVIDERS: PCP Internal Medicine; Visit Provider Internal Medicine Medical Oncology
DX: C34.91 Malignant neoplasm of unspecified part of right bronchus or lung (principal); C78.7 Secondary malignant neoplasm of liver and intrahepatic bile duct; C79.51 Secondary malignant neoplasm of bone; C77.1 Secondary and unspecified malignant neoplasm of intrathoracic lymph nodes; J44.9 Chronic obstructive pulmonary disease, unspecified; I10 Essential (primary) hypertension; E78.5 Hyperlipidemia, unspecified; H81.09 Meniere's disease, unspecified ear
CPT/HCPCS: 99205

== ENCOUNTER 2020-05-01 09:34 | Outpatient (CLI) | payer MEDICARE, SELFPAY | END 2020-05-01 09:35 | disposition home or self-care (01) | LOC: RT 02-13 14:15 | PROVIDERS: PCP Internal Medicine; Visit Provider Surgery | DX: Z01.810 Encounter for preprocedural cardiovascular examination (principal) | CPT/HCPCS: 93005 ==

== ENCOUNTER 2020-05-08 07:06 | Day surgery (SDC) | payer MEDICARE, SELFPAY ==
--- NOTE | 2020-05-01 09:34 | ECG_ITS ---
[facility] Test Date: 2020-05-01 Pat Name: Rafat Park Department: Room: Gender: Male Sat Tutor: : 1940 Requested By: Klever Benites Order Number: [id number] Jackie MD: Sandy Michele M.D. Measurements Intervals [place] Rate: 135 P: NV: QRS: 201 QRSD: 162 T: 19 QT: 355 QTc: 533 Interpretive Statements ATRIAL FIBRILLATION WITH RAPID VENTRICULAR RESPONSE MARKED RIGHT AXIS DEVIATION [QRS AXIS > 100] RIGHT BUNDLE BRANCH BLOCK [120+ ms QRS DURATION, UPRIGHT V1, 40+ ms S IN I/aVL/V4/V5/V6] WARNING: DATA QUALITY MAY AFFECT INTERPRETATION Compared to ECG 04/06/2020 12:47:46 Right-axis deviation now present Sinus rhythm no longer present Left-axis deviation no longer present Electronically Signed On 05-02-2020 6:44:27 [employer]AY[employer] by Sandy Michele M.D. [id number]
[2020-05-01 09:40] VITALS: BMI 33.3
--- NOTE | 2020-05-01 10:41 | ANES.PREANE2 ---
Pre-Anesthetic Assessment Pre-Anesthetic Assessment: Height/Weight: Height 1.85 m Weight 114.759 kg Preop Diagnosis: Lung cancer Proposed Procedure: Operation Date: 05/08/20 09:40 Proposed Procedures p Portacath Placement 63471 C34.90(Not Applicable) - Milton Toro MD Was Beta Sergei taken within 24 hours: N/A Social: Social History: Alcohol and Tobacco Exam: Pre-Anes Outpt Exam: alert, oriented x 3 and regular rate & rhythm Additional Exam Findings (including area of procedure): Decreased BS, rhonchi Airway: Submandibular: WNL Cervical ROM: WNL MP: 2 Dentition: False Pulmonary: Pulmonary: COPD and Orthopnea Comments: Home O2--2L CV/HEM: CV/HEM: None reported : : None reported Hepatic: Hepatic: None reported GI: GI: GERD Metabolic: Metabolic: Morbid obesity Musc/skel: Musc/skel: Lower Back Pain and Weakness Comments: Wheelchair, walker, chronic pain/opioid Neuropsych: Neuropsych: None reported Anesthetic Plan: ASA status: 4 Anesthesia: MAC PFSH Anesthesia PFSH: Medical History Asthma COPD (chronic obstructive pulmonary disease) GERD (gastroesophageal reflux disease) HTN (hypertension) Hyperlipidemia Meniere disease Surgical History History of appendectomy Family History Brother Cancer Other Diabetes Denies family history of CAD (coronary artery disease) Anesthesia complication Bleeding disorder Social History Smoking and tobacco status: former smoker Quit status (tobacco): has quit using tobacco Year quit tobacco: 2006 - Hx of 2PPD x 50 Alcohol intake: never Lives independently: Yes Household members: spouse Marital status: Current occupational status: retired History of recent travel: No Current gender identity: Male Data Anesthesia Cardiac Studies: No Data to Display
--- NOTE | 2020-05-08 | SCC_ITS ---
Procedure Done: Placement of right internal jugular vein PowerPort 30.0 seconds of fluoroscopic guidance, for a cumulative dose of 4.75 mGy, was provided to Dr. Toro by the radiology department. C-arm images of the chest were saved for the patient's permanent record. [facility]
--- NOTE | 2020-05-08 07:14 | SC_ITS ---
WS: [id number] C-arm FL for CVA [id number] REASON FOR EXAM: Powerport Placement FINDINGS: Chemotherapy therapy infusion port in place over the anterior right lateral chest wall. Access cathet er from the right internal jugular vein with the tip in the superior vena cava above the right atrium . SC/C-arm FL for CVA [id number] IMPRESSION: Chemotherapy infusion port as above.
[2020-05-08 07:31] VITALS: BP 130/90; PULSE 103; RESP 20; TEMP 37; O2SAT 91
[2020-05-08] MEDS: sodium chloride 0.9% 1,000 ML 30 ML IV (07:59)
--- NOTE | 2020-05-08 08:09 | ANES.PREANE2 ---
Pre-Anesthetic Assessment Pre-Anesthetic Assessment: Height/Weight: Height 1.85 m Weight 114.759 kg Temp Pulse Resp BP Pulse Ox 98.6 F 103 H 20 H 130/90 91 05/08/20 07:31 05/08/20 07:31 05/08/20 07:31 05/08/20 07:31 05/08/20 07:31 Preop Diagnosis: Lung cancer Proposed Procedure: Operation Date: 05/08/20 09:00 Proposed Procedures p Portacath Placement 99544 C34.90(Not Applicable) - Milton Toro MD Was Beta Sergei taken within 24 hours: N/A Last intake: Intake Last Liquid Date 05/07/20 Last Liquid Time 23:00 Last Solid Date 05/07/20 Last Solid Time 17:00 Social: Social History: Tobacco and No alcohol Exam: Pre-Anes Outpt Exam: alert and oriented x 3 Additional Exam Findings (including area of procedure): Merkedly diminished BS with prolonged active expiratory phase Irregular rate/rhytm Airway: Submandibular: WNL Cervical ROM: WNL MP: 2 Pulmonary: Pulmonary: COPD, Cough, ORDOÑEZ, Orthopnea and SOB CV/HEM: CV/HEM: Afib : : Chronic renal Insufficiency Hepatic: Hepatic: None reported GI: GI: GERD Metabolic: Metabolic: None reported Musc/skel: Musc/skel: None reported Neuropsych: Neuropsych: None reported Anesthetic Plan: ASA status: 4 Anesthesia: MAC Meds/Allergies Current Medications: Current Medications Generic Name Dose Route Start Last Admin Trade Name Freq PRN Reason Stop Dose Admin Sodium Chloride 1,000 mls @ 30 ml s/hr 05/08/20 07:15 05/08/20 07:59 Sodium Chloride 0.9% IV 05/09/20 07:14 30 mls/hr .Q24H DAREK Administration PFSH Anesthesia PFSH: Medical History Asthma COPD (chronic obstructive pulmonary disease) GERD (gastroesophageal reflux disease) HTN (hypertension) Hyperlipidemia Meniere disease Surgical History History of appendectomy Family History Brother Cancer Other Diabetes Denies family history of CAD (coronary artery disease) Anesthesia complication Bleeding disorder Social History Smoking and tobacco status: former smoker Quit status (tobacco): has quit using tobacco Year quit tobacco: 2005 - Hx of 2PPD x 50 Alcohol intake: never Lives independently: Yes Household members: spouse Marital status: Current occupational status: retired History of recent travel: No Current gender identity: Male Data Anesthesia Cardiac Studies: No Data to Display
[2020-05-08 08:46] VITALS: PULSE 84; RESP 16; O2SAT 93
[2020-05-08 08:52] VITALS: PULSE 78; RESP 16; O2SAT 93
[2020-05-08] MEDS: heparin, porcine 1,000 unit/mL INJ 10 mL 10000 UNIT INJECTION (08:58)
--- NOTE | 2020-05-08 09:49 | W.PM.OPSUD ---
Surgery/Procedure H&P Update DATE OF PROCEDURE: May 08, 2020 DATE H&P PERFORMED: 04/30/20 H&P UPDATE INFORMATION: I have reviewed H&P completed within last 30 days, I have examined patient prior to procedure and No changes to prior documentation PREOP DIAGNOSIS: Lung cancer PRIMARY INDICATION FOR PROCEDURE: The same PLANNED PROCEDURE: Operation Date: 05/08/20 09:00 Proposed Procedures p Portacath Placement 11352 C34.90(Not Applicable) - Milton Toro MD
[2020-05-08] MEDS: lidocaine 2% INJ 20 mL INJECTION (10:28)
--- NOTE | 2020-05-08 11:42 | P.OP_ITS ---
Operative Report Date of procedure: May 08, 2020 Pre-op Diagnosis: Lung cancer Post-op diagnosis: same Procedure Done: Placement of right internal jugular vein PowerPort, fluoroscopic and ultrasound guidance is done through the whole entire procedure by my interpretation. Implants: Right internal jugular vein PowerPort placement Surgeon: Milton Toro [employer] Tra[employer] Components Assembler: mri special procedures technologist [place] Circulating nurse Malena Anesthesia: MAC (Judy Grace) Estimated blood loss (mL): 15 Condition: stable Disposition: same day Brief History: This is a pleasant 79 years old gentleman history of lung cancer presents to my practice for PowerPort placement. Plan of care; After thorough history physical examination and reviewing the chart, I counseled the patient for Port-A-Cath placement, indications, risks including pneumothorax and injury of major vascular structures, benefits,indications and alternatives were all discussed with the patient, patient understands and is interested to proceed. Rationale was carefully and clearly discussed with the patient.Appropriate informed consent have been reviewed and signed. Procedure: Patient was identified in the holding area and taken to the operative room and placed in supine position IV propofol was given by the anesthesia provider ,both arms were tucked,Time-out was done verifying the patient's name/date of /planned procedure and destination after the procedure, all were in agreement. SCDs confirmed to be functioning, preoperative antibiotics administered per protocol, and beta ana maría protocol was confirmed, appropriate positioning of the patient was done by me. Medications were reviewed to assess for anticoagulant usage. Risks and benefits and prevention of central line associated blood stream infection (CLABSI) were discussed with the patient/CPOA, and a consent was obtained. Monitors were in place and monitored throughout the procedure. All necessary supplies were available prior to start. Hand hygiene was completed prior to starting. Maximum barrier technique was utilized including a sterile gown, sterile gloves with a hat and mask. Site was was prepped with [chlorhexidine] and a full body drape was placed. 5 mL of 2% lidocaine was injected into the skin with a 25 gauge needle. Prep& drape was done under the usual sterile technique, lidocaine 2% was injected at the site of the stick, started by right Subclavian vein and venous blood was retrieved yet the wire was not able to pass after couple of attempts. I decided to deviate my attention to access the right Internal Juglar vein stick that retrieved venous blood was obtained from the first stick under ultrasound guidance and there was no evidence of intraluminal thrombosis, interpretation was done by me through the whole entire procedure, a guidewire was then threaded and under the guidance of fluoroscopy position was confirmed to be in the IVC and my interpretation, there was no PVC changes, at that point the guidewire was secured to the drapes with a hemostat and the needle was taken out. Attention was then deviated towards creation of a pocket for the port were lidocaine 2% was injected using an 15 blade knife skin incision was created at the right upper Chest ,dissection using the Bovie to create a pocket for the Port-A-Cath to be accommodated, hemostasis was secured, after the port being appropriately flushed it was inserted into the pocket and a tunneler was used to accommodate the catheter of the port cath to be delivered through the incision first created at the site of the stick, yet I had to create a transit incision at the root of the neck at the right side to the patient along the neck, and then I was able to retrieve the catheter at the index site of the stick. At that point under fluoroscopy an estimated length was measured for the catheter and was cut at the designed level, followed by that a dilator with the sheath introduced onto the guidewire the dilator and the wire were retrieved and the catheter of the port was introduced via the sheath where it was peeled off and the catheter maintained to be in the SVC that was confirmed with fluo roscopy, and the fluoroscopy interpretation was done by me throughout the entire procedure. The port was kept in its pocket he had there was some difficulty with drawing blood so I had to perform a more inferior incision to accommodate the port in a better fashion and that helped and appropriate retrieving a venous blood was achieved without difficulty,Multiple flushes of the port was done by diluted heparin and I was able to retrieve without difficulty venous blood as well as appropriate flushing was achieved.Both incision,3-0 Vicryl deep subdermal interrupted sutures, skin was then closed by 4-0 Monocryl as subcuticular closure. The stick site and the additional incision at the neck was also closed by 3-0 Vicryl followed by 4-0 Monocryl and surgical glue was used followed by dressing. Patient tolerated the procedure well was taken to the recovery area Count was correct at the end of the procedure I was present for the whole entire procedure CXR confirmed to be in a good position.
--- NOTE | 2020-05-08 11:47 | XR_ITS ---
WS: [id number] Portable AP upright chest, 05/08/2020, 1216 hours Clinical Data: Status post right internal jugular vein PowerPort placement Comparison: C-arm fluoroscopy view of the right upper chest, 05/08/2020, 1128 hours Findings: The right access port remains in the same position. It enters the right internal jugular ve in and ends at the superior aspect of the superior vena cava. No pneumothorax is seen. XR/XR chest 1V portable [id number] Impression: Right infusion catheter unchanged.
[2020-05-08 12:02] VITALS: BP 126/76; PULSE 97; RESP 16; TEMP 36.2; O2SAT 99
[2020-05-08 12:23] VITALS: BP 136/81; PULSE 101; RESP 18; O2SAT 94
--- NOTE | 2020-05-08 14:58 | ANE.PACU2 ---
Inpatient post-anesthesia follow up: Airway intact: Yes Vital signs: Temperature 97.1 F Pulse Rate 101 Respiratory Rate 18 Blood Pressure 136/81 Pulse Oximetry 94 Oxygen Delivery Me thod Oxymask,Simple Mas k Oxygen Flow Rate 3 Fraction of Inspir ed Oxygen Hydration adequate: Yes Nausea and vomiting: No Pain level: 2 Mental status: Baseline
== END 2020-05-08 13:01 | disposition home or self-care (01) ==
PROVIDERS: PCP Internal Medicine; Visit Provider Surgery
PROC: (CPT 36561; principal; 2020-05-08 09:00)
DX: C34.90 Malignant neoplasm of unspecified part of unspecified bronchus or lung (principal); J44.9 Chronic obstructive pulmonary disease, unspecified; K21.9 Gastro-esophageal reflux disease without esophagitis; E78.5 Hyperlipidemia, unspecified; H81.09 Meniere's disease, unspecified ear; Z87.891 Personal history of nicotine dependence
CPT/HCPCS: 36561; 12345; 71045; 77001; 94640; C1788; J0690; J1644; J2250; J2370; J2704; J3490; J7030; J7611

== ENCOUNTER 2020-05-24 05:43 | Outpatient (RCR) | payer MEDICARE, SELFPAY ==
[2020-05-02 09:22] LABS: Basophils # 0.1 10^3/uL (0.0-0.1); Basophils % 1.1 %; Eosinophils # 0.1 10^3/uL (0.0-0.8); Eosinophils % 2.1 %; Hemoglobin 13.6 g/dL (11.7-16.6); Lymphocytes # 0.9 10^3/uL (0.8-4.8); Lymphocytes % 14.7 %; Mean Corpuscular HGB Conc 32.4 g/dL (30.0-36.0); Mean Corpuscular Hemoglobin 27.5 pg (28.0-34.0); Mean Corpuscular Volume 84.8 fL (80-94); Mean Platelet Volume 9.9 fL (7.4-10.4); Monocytes # 0.7 10^3/uL (0.2-0.9); Monocytes % 11.7 %; Neutrophils # 4.36 10^3/uL (1.8-7.7); Neutrophils % 69.9 %; Nucleated Red Blood Cells % 0 %; Platelet Count 256 10^3/cmm (130-400); Red Blood Count 4.95 10^6/uL (4.1-5.3); Red Cell Distribution Width 13.4 % (12.1-15.1); White Blood Count 6.2 10^3/uL (4.0-10.0)
[2020-05-02 09:53] LABS: Alanine Aminotransferase 20 U/L (0-41); Albumin Level 3.7 g/dL (3.5-5.2); Alkaline Phosphatase 84 IU/L (40-130); Anion Gap 16.4 (5-19); Aspartate Amino Transferase 30 U/L (0-40); Blood Urea Nitrogen 12 mg/dL (8-23); Calcium 9.2 mg/dL (8.5-10.5); Carbon Dioxide 31 mmol/L (22-29); Chloride 89 mmol/L (98-107); Globulin 3.1 g/dL (1.3-4.6); Glucose 103 mg/dL (65-115); Osmolality Calculated 276 mOsm/kg (285-295); Potassium 3.4 mmol/L (3.5-5.1); Sodium 133 mmol/L (136-145); Thyroid Stimulating Hormone 1.67 uIU/mL (0.27-4.20); Total Bilirubin 0.4 mg/dL (0.15-1.2); Total Protein 6.8 g/dL (6.6-8.7)
[2020-05-02] MEDS: ondansetron 2 mg/ML SDV 2 mL 8 MG IV (10:32)
[2020-05-02] MEDS: sodium chloride 0.9% 250 ML IV (10:32)
[2020-05-03] MEDS: sodium chloride 0.9% 250 ML IV (08:46)
[2020-05-04] MEDS: sodium chloride 0.9% 250 ML IV (08:35)
[2020-05-04] MEDS: palonosetron 0.25 mg/5 mL SDV IV (08:35)
[2020-05-09 11:16] LABS: Eosinophils % 0.3 %; Hematocrit 38.4 % (42.0-52.0); Hemoglobin 11.9 g/dL (11.7-16.6); Lymphocytes # 0.5 10^3/uL (0.8-4.8); Lymphocytes % 17.4 %; Mean Corpuscular Hemoglobin 27.2 pg (28.0-34.0); Mean Corpuscular Volume 87.7 fL (80-94); Mean Platelet Volume 9.8 fL (7.4-10.4); Monocytes # 0.1 10^3/uL (0.2-0.9); Monocytes % 1.7 %; Neutrophils # 2.17 10^3/uL (1.8-7.7); Neutrophils % 72.6 %; Nucleated Red Blood Cells % 0 %; Platelet Count 142 10^3/cmm (130-400); Red Blood Count 4.38 10^6/uL (4.1-5.3); Red Cell Distribution Width 13.2 % (12.1-15.1)
[2020-05-09 11:56] LABS: Slide Review Slide Review Perform
--- NOTE | 2020-05-14 00:17 | ONC FU_ITS ---
[facility] Patient Note Patient: Rafat Park Unit #: [id number]: [id number] Dictated By: Fany JiménezDate of Visit: May 09, 2020 Onc MED Follow-Up/Prog Note Chief Complaint: Lung cancer. 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 On 04/02/2020 had presented to the emergency room with shortness of breath and chest pain. His CT pulmonary angiogram showed no evidence of pulmonary embolism. However, there were multiple small pleural-based nodules noted in the right lung and there was a bulky mass noted in the middle mediastinum measuring 9.9 x 5.8 x 9.7 cm. Tumor was noted to extend into the right hilum. A pretracheal superior mediastinal mass measured 3.3 x 2.0 x 3.0 cm and an anterior mediastinal tumor nodule measured 2.1 x 1.5 x 1.8 cm. Other anterior, middle, and posterior mediastinal tumor foci were present. There was a small right pleural effusion. Also noted was a right hepatic lobe mass measuring 6.5 x 5.5 x 5.6 cm, thought to be likely metastasis. He was referred to Dr. Bedolla and 04/06/2020 underwent bronchoscopy/EBUS with FNA biopsy of right paratracheal mass. There were no endobronchial lesions identified. The FNA biopsy was positive for small cell carcinoma favoring lung origin. A staging PET/CT 04/17/2020 showed multiple small FDG avid pleural-based lesions in the right lung, a highly FDG avid anterior mediastinal mass with SUV 11.9, highly FDG avid right paratracheal mass with SUV 16.55, and FDG avid hilar lymphadenopathy bilaterally. There was additional FDG avid adenopathy nodes in the upper abdomen and the mass in the right lobe of the liver was also FDG avid with SUV 17.14. There were multiple sites of FDG avid skeletal lesions including the cervical, thoracic, and lumbar spine, pelvis, sternum, and rib cage. He was seen by Dr Jain for further management. His main complaint was that he is having pain in his right lower chest/right upper quadrant area, significant enough that he is having to try and sleep in a recliner. The pain was worse when he took a deep breath. Mr. Park was offered chemotherapy with carboplatin etoposide and Tecentriq. He began his first cycle on 05/02/2020. He is here today for follow-up. This is day 8 of cycle 1. He reports overall he feels okay . He states he has not been sick at his stomach at all. He has had no diarrhea. He actually is have little constipation but is working on this with stool softeners and [id number] laxative. He states his appetite has improved. He states he thinks he is breathing some better although he continues to have some pain in the right lower chest right upper quadrant area he states is easier to sleep in recliner but he has not been able to get back in the bed yet. He states his breathing seems to be some better and is not hurting as bad as when he took a deep breath before. He denies any orthopnea. He has had lower extremity edema off and on but states for the most part is stable. He denies any neuropathy symptoms. He denies any hearing changes. He has not had any mouth sores, sore throat or difficulty swallowing. He denies fever or chills. He states he is apprised to how well he feels after the first treatment. His ECOG remains at 3. 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 wang in 2019 Bronchoscopy/EBUS and FNA biopsy of right paratracheal mass in 2019 Allergies: No Known Allergies. Medications: Acetaminophen 1 Tablet (of 500 mg) Oral daily PRN Aspirin 1 Tablet Tablet, chewable Oral daily hydroCHLOROthiazide 1 Tablet (of 25 mg) Oral daily Mucinex 1 Tablet Tablet SR 12 HR Oral daily Omeprazole 1 Capsule (of 20 mg) Capsule Delayed Release Oral daily Pravastatin Sodium 1 Tablet (of 20 mg) Oral daily Spiriva Respimat 1 Puff(s) (of 2.5 mcg/act) Aerosol, solution Inhalation daily PRN Symbicort 1 Puff(s) (of 160-4.5 mcg/act) Aerosol Inhalation daily PRN Ventolin HFA 1 Puff(s) (of 108 (90 base) mcg/act) Aerosol, solution Inhalation daily PRN Family History: Mr. Park's mother at age 62: automoblie. Mr. Park's father at age 64: auto mobile. Mr. Park has 1 brother who is alive. Mother and father in a motor vehicle accident, father at age 64 and mother at age 62. A 66-year-old brother has COPD. Social History: Mr. Park is . Mr. Park quit smoking 14 years ago but had smoked 1.0 pack/day for 50 years. He has no history of drinking. He has a history of smoking 2 packs of cigarettes daily for 40 years. He quit smoking in 2006. He has some alcohol use, typically 2 to 3 cans of beer weekly. Review Of Symptoms: Vital Signs: Performed on May 09, 2020 12:59 Height - 73.00 in Weight - lbs Temperature - 99.0 F (HIGH) Pulse - 66 /min Respiration - 20 /min BP - 149/86 mm(hg) (HIGH) O2 Sat - 90 % (LOW) Pain - 5,3 - Capable of only limited self-care, confined to bed or chair more than 50% of waking hours. (ECOG) Physical Examination: Chest Right PowerPort insertion site is unremarkable. It is covered with bandages but there is no swelling redness or warmth noted around the bandages. There is no signs of bleeding. Constitutional Alert, oriented, no acute distress. Skin pink, warm and dry. Head Normocephalic; atraumatic. Eyes Conjunctivae and sclerae are clear and without icterus. Pupils are reactive and equal. ENMT No oral exudates, ulcers, masses, thrush or mucositis. Oropharynx clear. Tongue normal. Neck Supple without masses or thyromegaly. No jugular venous distension. Hematologic/Lymphatic No petechiae or purpura. No tender or palpable lymph nodes in the cervical or supraclavicular areas. Respiratory Lungs are clear to auscultation without rhonchi but bilateral wheezing that clears after cough.. Cardiovascular Regular rate and rhythm of heart without murmurs,clicks, gallops or rubs. Back/Spine Non-tender to palpation. Extremities No visible deformities, no cyanosis, clubbing or edema. Integumentary No rashes or lesions. Psychiatric Alert and oriented times three. Coherent speech. Verbalizes understanding of our discussions today. Laboratory:Test performed on May 02, 2020 08:50 Sodium 133 mmol/L TSH 1.67 uIU/mL Potassium 3.4 mmol/L Chloride 89 mmol/L CO2 31 mmol/L Anion Gap 16.4 BUN 12 mg/dL Creatinine 0.6 mg/dL Cr Clearance (Est) 167.2300 mL/min Glucose 103 mg/dL Osmolality - Calculated 276 mOsm/kg Calcium 9.2 mg/dL Protein, Total 6.8 g/dL Albumin 3.7 g/dL Globulin 3.1 g/dL Bilirubin, Total 0.4 mg/dL ALT (SGPT) 20 U/L AST (SGOT) 30 U/L Alkaline Phosphatase 84 IU/L WBC 6.2 10 3/uL RBC 4.95 10 6/uL HGB 13.6 g/dL HCT 42.0 % MCV 84.8 fL MCH 27.5 pg MCHC 32.4 g/dL RDW 13.4 % Platelet Count 256 10 3/cmm MPV 9.9 fL Neutrophils 4.36 10 3/uL Lymphocytes 0.9 10 3/uL Monocytes 0.7 10 3/uL Eosinophils 0.1 10 3/uL Basophils 0.1 10 3/uL Neutrophil % 69.9 % Lymphocyte % 14.7 % Monocyte % 11.7 % Eosinophil % 2.1 % Basophils % 1.1 % NRBC % 0 % Impression: 1. 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 By PET/CT, she has extensive disease including multiple pleural-based metastatic lesions in the right lung and bulky mediastinal lymph node involvement as well as liver and bony metastatic disease. A primary lesion is not clearly identifiable, but the pattern of metastatic disease suggests that the most likely source would be the right lung. 2. He underwent bronchoscopy/EBUS with FNA biopsy of right paratracheal mass on 04/06/2020. 3. He has underlying COPD. His other medical illnesses include: 4. Hypertension. 5. Hyperlipidemia. 6. 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 Mr Park presented with extensive stage small cell lung cancer. He was significantly symptomatic. He has poor performance status with very limited activity tolerance. He had difficulty ambulating to the point that it did affect his ability to perform ADLs. He was having difficulty sleeping due to pain in his lower chest/upper abdomen. Dr Raymond discussed with Mr Park the fact that his disease is not curable and that with extensive involvement it will not be amenable to either surgery or radiation. However, there is a fairly high probability of response to systemic therapy, in the range of 60 to 70%. Currently the best outcomes have been seen with a combination of chemotherapy and immunotherapy. As such, he is recommended to undergo a trial of therapy with carboplatin/etoposide chemotherapy in combination with atezolizumab, per NCCN guidelines. Mr Park presented with extensive stage small cell lung cancer. He was significantly symptomatic. He has poor performance status with very limited activity tolerance. He had difficulty ambulating to the point that it did affect his ability to perform ADLs. He was having difficulty sleeping due to pain in his lower chest/upper abdomen. Dr Raymond discussed with Mr Park the fact that his disease is not curable and that with extensive involvement it will not be amenable to either surgery or radiation. However, there is a fairly high probability of response to systemic therapy, in the range of 60 to 70%. Currently the best outcomes have been seen with a combination of chemotherapy and immunotherapy. As such, he is recommended to undergo a trial of therapy with carboplatin/etoposide chemotherapy in combination with atezolizumab, per NCCN guidelines. He began his first cycle on 05/02/2020. The staging MRI of the brain has not yet been completed. He has tolerated his first cycle of chemotherapy well. Plan: 1. Proceed with current cycle of carboplatin etoposide Tecentriq. This is day 8. It is a 21-day cycle. 2. Labs from today were reviewed in detail and discussed with . Mrs. Park and a copy was given to them. WBC is 3, hemoglobin 11.9, platelets 142,000 ANC is 2170 compared to 4368 last week. He did not have growth factor support. 3. We will plan to monitor his blood counts weekly via in-home labs due to mobility issues. 4. We will plan to see him back in 2 weeks with CBC CMP, TSH for consideration of cycle 3 carboplatin etoposide Tecentriq/ 5. We did send in a prescription for EMLA cream for port access. He did have PowerPort placed in the right internal jugular by Dr. Toro on 05/08/2020. 6. Mr. Park was encouraged to contact us in interim should questions or problems arise. Signed By: Fany Jiménez-, AOP Pedro Pablo Raymond MD <<Signature on File>>
[2020-05-14 11:09] LABS: Eosinophils % 1.5 %; Hematocrit 34.2 % (42.0-52.0); Hemoglobin 10.9 g/dL (11.7-16.6); Lymphocytes # 0.5 10^3/uL (0.8-4.8); Lymphocytes % 78.5 %; Mean Corpuscular HGB Conc 31.9 g/dL (30.0-36.0); Mean Corpuscular Hemoglobin 27.7 pg (28.0-34.0); Mean Platelet Volume 9.8 fL (7.4-10.4); Monocytes # 0.1 10^3/uL (0.2-0.9); Monocytes % 15.4 %; Neutrophils % 4.6 %; Nucleated Red Blood Cells % 0 %; Platelet Count 40 10^3/cmm (130-400); Red Blood Count 3.93 10^6/uL (4.1-5.3); Red Cell Distribution Width 12.9 % (12.1-15.1)
[2020-05-14 11:23] LABS: Neutrophils # 0.03 10^3/uL (1.8-7.7); Slide Review Slide Review Perform; White Blood Count 0.7 10^3/uL (4.0-10.0)
[2020-05-16 10:01] LABS: Basophils % 1.5 %; Eosinophils % 0.4 %; Hematocrit 33.3 % (42.0-52.0); Hemoglobin 10.6 g/dL (11.7-16.6); Lymphocytes # 0.7 10^3/uL (0.8-4.8); Lymphocytes % 24.9 %; Mean Corpuscular HGB Conc 31.8 g/dL (30.0-36.0); Mean Corpuscular Hemoglobin 27.4 pg (28.0-34.0); Mean Platelet Volume 11.2 fL (7.4-10.4); Monocytes # 0.5 10^3/uL (0.2-0.9); Monocytes % 16.8 %; Neutrophils # 1.49 10^3/uL (1.8-7.7); Neutrophils % 54.6 %; Nucleated Red Blood Cells % 0 %; Platelet Count 67 10^3/cmm (130-400); Red Blood Count 3.87 10^6/uL (4.1-5.3); Red Cell Distribution Width 13.1 % (12.1-15.1); White Blood Count 2.7 10^3/uL (4.0-10.0)
[2020-05-16 10:44] LABS: Anion Gap 16.4 (5-19); Blood Urea Nitrogen 18 mg/dL (8-23); Calcium 9.2 mg/dL (8.5-10.5); Carbon Dioxide 33 mmol/L (22-29); Chloride 92 mmol/L (98-107); Glucose 100 mg/dL (65-115); Osmolality Calculated 288 mOsm/kg (285-295); Potassium 3.4 mmol/L (3.5-5.1); Sodium 138 mmol/L (136-145)
[2020-05-16 10:56] LABS: Slide Review Slide Review Perform
[2020-05-21 08:43] LABS: Basophils % 0.4 %; Hematocrit 35.2 % (42.0-52.0); Lymphocytes # 1.6 10^3/uL (0.8-4.8); Lymphocytes % 14.8 %; Mean Corpuscular HGB Conc 31.3 g/dL (30.0-36.0); Mean Corpuscular Hemoglobin 26.8 pg (28.0-34.0); Mean Corpuscular Volume 85.9 fL (80-94); Mean Platelet Volume 10.4 fL (7.4-10.4); Monocytes # 1.8 10^3/uL (0.2-0.9); Monocytes % 16.3 %; Neutrophils # 5.63 10^3/uL (1.8-7.7); Neutrophils % 52.1 %; Nucleated Red Blood Cells % 0 %; Platelet Count 299 10^3/cmm (130-400); Red Cell Distribution Width 13.5 % (12.1-15.1); White Blood Count 10.8 10^3/uL (4.0-10.0)
[2020-05-21 09:03] LABS: Alanine Aminotransferase 13 U/L (0-41); Albumin Level 3.5 g/dL (3.5-5.2); Alkaline Phosphatase 104 IU/L (40-130); Anion Gap 17.5 (5-19); Aspartate Amino Transferase 28 U/L (0-40); Blood Urea Nitrogen 15 mg/dL (8-23); Calcium 9.1 mg/dL (8.5-10.5); Carbon Dioxide 35 mmol/L (22-29); Chloride 87 mmol/L (98-107); Globulin 3.2 g/dL (1.3-4.6); Glucose 114 mg/dL (65-115); Osmolality Calculated 284 mOsm/kg (285-295); Potassium 3.5 mmol/L (3.5-5.1); Sodium 136 mmol/L (136-145); Total Bilirubin 0.4 mg/dL (0.15-1.2); Total Protein 6.7 g/dL (6.6-8.7)
[2020-05-21 09:46] LABS: Slide Review Slide Review Perform
[2020-05-22 10:06] LABS: Thyroid Stimulating Hormone 1.52 uIU/mL (0.27-4.20)
[2020-05-22] MEDS: sodium chloride 0.9% 250 ML IV (11:08)
[2020-05-22] MEDS: ondansetron 2 mg/ML SDV 2 mL 8 MG IVP (11:08)
[2020-05-23] MEDS: sodium chloride 0.9% 250 ML 75 ML IV (10:15)
[2020-05-23] MEDS: ondansetron 2 mg/ML SDV 2 mL 8 MG IVP (10:15)
[2020-05-24] MEDS: palonosetron 0.25 mg/5 mL SDV IV (09:54)
[2020-05-24] MEDS: sodium chloride 0.9% 250 ML 75 ML IV (09:55)
--- NOTE | 2020-05-27 20:11 | ONC FU_ITS ---
[facility] Patient Note Patient: Rafat Park Unit #: [id number]: [id number] Dictated By: Fany JiménezDate of Visit: May 22, 2020 Onc MED Follow-Up/Prog Note Chief Complaint: Lung cancer. 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 On 04/02/2020 had presented to the emergency room with shortness of breath and chest pain. His CT pulmonary angiogram showed no evidence of pulmonary embolism. However, there were multiple small pleural-based nodules noted in the right lung and there was a bulky mass noted in the middle mediastinum measuring 9.9 x 5.8 x 9.7 cm. Tumor was noted to extend into the right hilum. A pretracheal superior mediastinal mass measured 3.3 x 2.0 x 3.0 cm and an anterior mediastinal tumor nodule measured 2.1 x 1.5 x 1.8 cm. Other anterior, middle, and posterior mediastinal tumor foci were present. There was a small right pleural effusion. Also noted was a right hepatic lobe mass measuring 6.5 x 5.5 x 5.6 cm, thought to be likely metastasis. He was referred to Dr. Bedolla and 04/06/2020 underwent bronchoscopy/EBUS with FNA biopsy of right paratracheal mass. There were no endobronchial lesions identified. The FNA biopsy was positive for small cell carcinoma favoring lung origin. A staging PET/CT 04/17/2020 showed multiple small FDG avid pleural-based lesions in the right lung, a highly FDG avid anterior mediastinal mass with SUV 11.9, highly FDG avid right paratracheal mass with SUV 16.55, and FDG avid hilar lymphadenopathy bilaterally. There was additional FDG avid adenopathy nodes in the upper abdomen and the mass in the right lobe of the liver was also FDG avid with SUV 17.14. There were multiple sites of FDG avid skeletal lesions including the cervical, thoracic, and lumbar spine, pelvis, sternum, and rib cage. He was seen by Dr Jain for further management. His main complaint was that he is having pain in his right lower chest/right upper quadrant area, significant enough that he is having to try and sleep in a recliner. The pain was worse when he took a deep breath. Mr. Park was offered chemotherapy with carboplatin etoposide and Tecentriq. He began his first cycle on 05/02/2020. On 05/01/2020 Mr. Park had an EKG indicating he had atrial fib with rapid ventricular response. He has a right bundle branch block. He also had a right internal jugular PowerPort Port-A-Cath placement on 05/08/[address] Toro. He is here today for follow-up. He is due for cycle 2 Carboplatin/etoposide/Tecentriq. He had significant neutropenia with an ANC of 30 on day 12. He was given 3 doses of Neupogen on 05/14, 05/15 and 05/16/2020. His ANC as of 05/21/2020 was 5630. he states overall he feels good. He denied any significant bone pain with the Neupogen. He also states that he has cough still some days it is bad other days it is better. He states he cannot find a particular trigger and has had no fever or chills. He denies mouth sores, sore throat or difficulty swallowing. He denies any nausea or vomiting. He states his appetite is fair. His energy is still marginal although he thinks it is getting better. He denies any diarrhea or constipation. He denies any new pain. He states he has had some tingling in his fingertips but states it is no worse than what it has been for him normally. His ECOG remains at 3 but is slowly improving. 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 wang in 2019 Bronchoscopy/EBUS and FNA biopsy of right paratracheal mass in 2020 Allergies: No Known Allergies. Medications: Acetaminophen 1 Tablet (of 500 mg) Oral daily PRN Aspirin 1 Tablet Tablet, chewable Oral daily Lasix (40 mg) Tablet Oral daily metOLazone 1 Tablet (of 2.5 mg) Oral daily on Every Other Day Mucinex 1 Tablet Tablet SR 12 HR Oral daily Omeprazole 1 Capsule (of 20 mg) Capsule Delayed Release Oral daily Potassium 1 Tablet (of 99 mg) Oral daily Pravastatin Sodium 1 Tablet (of 20 mg) Oral daily Spiriva Respimat 1 Puff(s) (of 2.5 mcg/act) Aerosol, solution Inhalation daily PRN Symbicort 1 Puff(s) (of 160-4.5 mcg/act) Aerosol Inhalation daily PRN Ventolin HFA 1 Puff(s) (of 108 (90 base) mcg/act) Aerosol, solution Inhalation daily PRN Family History: Mr. Park's mother at age 62: automoblie. Mr. Park's father at age 64: auto mobile. Mr. Park has 1 brother who is alive. Mother and father in a motor vehicle accident, father at age 64 and mother at age 62. A 66-year-old brother has COPD. Social History: Mr. Park is . Mr. Park quit smoking 14 years ago but had smoked 1.0 pack/day for 50 years. He quit drinking less than one year ago. Review Of Symptoms: Constitutional Denies fevers, chills, night sweats, excessive fatigue or weight loss. Has some fatigue but not bad overall . Allergic/Immunologic No reactions. Eyes Denies significant visual changes. No diplopia. No amaurosis. ENMT Denies changes in hearing, sore throat, mouth sores, difficulty or changes in swallowing ability, and/or sinus drainage. Hematologic/Lymphatic Denies easy bruising or bleeding. The patient denies any tender or palpable lymph nodes. Respiratory Denies dyspnea on exertion, chest pain, or hemoptysis. Denies orthopnea. Still has cough-some days worse than others-no particular trigger. Cardiovascular Denies anginal chest pain, palpitations or orthopnea. Gastrointestinal Denies nausea, vomiting, diarrhea, GI bleeding, or constipation. Denies change in bowel habits and/or stool color, no heartburn or early satiety. Genitourinary (M) Denies hematuria, dysuria, increased frequency, urgency, hesitancy or incontinence. Musculoskeletal Denies joint pain, swelling or redness. No decreased range of motion. Integumentary Denies chronic rashes, inflammation, ulcerations or skin changes. Neurologic Denies headache, blurred vision, and no areas of focal weakness or numbness. Normal gait. No sensory problems. Psychiatric Denies insomnia, depression, tamar or mood swings. Vital Signs: Performed on May 22, 2020 10:05 Height - 73.00 in Weight - 235.2 lbs (HIGH) BSA - 2.31 sq.m BMI - 31.03 (HIGH) Temperature - 98.2 F (LOW) Pulse - 66 /min Respiration - 20 /min BP - 145/79 mm(hg) (HIGH) O2 Sat - 89 % (LOW) Pain - 5,3 - Capable of only limited self-care, confined to bed or chair more than 50% of waking hours. (ECOG) Physical Examination: Constitutional Alert, oriented, no acute distress. Skin pink, warm and dry. Head Normocephalic; atraumatic. Eyes Conjunctivae and sclerae are clear and without icterus. Pupils are reactive and equal. ENMT No oral exudates, ulcers, masses, thrush or mucositis. Oropharynx clear. Tongue normal. Neck Supple without masses or thyromegaly. No jugular venous distension. Hematologic/Lymphatic No petechiae or purpura. No tender or palpable lymph nodes in the cervical or supraclavicular areas. Respiratory Lungs are clear to auscultation without rhonchi but bilateral wheezing that clears after cough.. Cardiovascular Regular rate and rhythm of heart without murmurs,clicks, gallops or rubs. Chest Right PowerPort insertion site is unremarkable. Back/Spine Non-tender to palpation. Extremities No visible deformities, no cyanosis, clubbing or edema. Integumentary No rashes or lesions. Psychiatric Alert and oriented times three. Coherent speech. Verbalizes understanding of our discussions today. Laboratory:Test performed on May 22, 2020 07:40 TSH 1.52 uIU/mL Test performed on May 21, 2020 07:40 Sodium 136 mmol/L Potassium 3.5 mmol/L Chloride 87 mmol/L CO2 35 mmol/L Anion Gap 17.5 BUN 15 mg/dL Creatinine 0.9 mg/dL Cr Clearance (Est) 111.4800 mL/min Glucose 114 mg/dL Osmolality - Calculated 284 mOsm/kg Calcium 9.1 mg/dL Protein, Total 6.7 g/dL Albumin 3.5 g/dL Globulin 3.2 g/dL Bilirubin, Total 0.4 mg/dL ALT (SGPT) 13 U/L AST (SGOT) 28 U/L Alkaline Phosphatase 104 IU/L WBC 10.8 10 3/uL RBC 4.10 10 6/uL HGB 11.0 g/dL HCT 35.2 % MCV 85.9 fL MCH 26.8 pg MCHC 31.3 g/dL RDW 13.5 % Platelet Count 299 10 3/cmm MPV 10.4 fL Neutrophils 5.63 10 3/uL Lymphocytes 1.6 10 3/uL Monocytes 1.8 10 3/uL Eosinophils 0.0 10 3/uL Basophils 0.0 10 3/uL Neutrophil % 52.1 % Lymphocyte % 14.8 % Monocyte % 16.3 % Eosinophil % 0.0 % Basophils % 0.4 % NRBC % 0 % CBC Slide Review Slide Review Perform Impression: 1. 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 By PET/CT, she has extensive disease including multiple pleural-based metastatic lesions in the right lung and bulky mediastinal lymph node involvement as well as liver and bony metastatic disease. A primary lesion is not clearly identifiable, but the pattern of metastatic disease suggests that the most likely source would be the right lung. 2. He underwent bronchoscopy/EBUS with FNA biopsy of right paratracheal mass on 04/06/2020. 3. He has underlying COPD. His other medical illnesses include: 4. Hypertension. 5. Hyperlipidemia. 6. 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 7. Atrial fib 05/01/2020 Mr Park presented with extensive stage small cell lung cancer. He was significantly symptomatic. He has poor performance status with very limited activity tolerance. He had difficulty ambulating to the point that it did affect his ability to perform ADLs. He was having difficulty sleeping due to pain in his lower chest/upper abdomen. Dr Raymond discussed with Mr Park the fact that his disease is not curable and that with extensive involvement it will not be amenable to either surgery or radiation. However, there is a fairly high probability of response to systemic therapy, in the range of 60 to 70%. Currently the best outcomes have been seen with a combination of chemotherapy and immunotherapy. As such, he was offered a trial of therapy with carboplatin/etoposide chemotherapy in combination with atezolizumab, per NCCN guidelines. He had right internal jugular PowerPort placed per Dr. Toro on 05/08/2020. He began his first cycle on 05/02/2020. The staging MRI of the brain has not yet been completed. He has tolerated his first cycle of chemotherapy well with the exception of chemotherapy induced neutropenia and thrombocytopenia. Plan: 1. Small cell lung cancerr: Proceed with cycle 2 of carboplatin etoposide Tecentriq. Mr. Park will have dose reduction in the carboplatin and etoposide due to his significant chemotherapy-induced neutropenia and thrombocytopenia. He had a platelet count of 40,000 on day 12 as well as the ANC of 30. 2. Labs from today were reviewed in detail and discussed with . Mrs. Park and a copy was given to them. WBC 10.8, hemoglobin 11.0, platelets 299,000 ANC is 5630. Potassium 3.5 random glucose 114 creatinine 0.9 LFTs are normal. TSH is 1.52. 3. We will plan to monitor his blood counts weekly via in-home labs due to mobility issues. He may again require growth factor support with Neupogen. If he requires growth factor support with the cycle despite the dose reduction we will need to consider adding Neulasta with cycle 3. 4. We will plan to see him back in 3 weeks with CBC CMP, TSH for consideration of cycle 3 carboplatin/etoposide/Tecentriq. He will have restaging imaging prior to his follow-up with cycle 3. 5. Continue prn use of EMLA cream for port access. He did have PowerPort placed in the right internal jugular by Dr. Toro on 05/08/2020. 6. Mr. Park was encouraged to contact us in interim should questions or problems arise. Signed By: Fany Jiménez-, AOCNP Pedro Pablo Raymond MD <<Signature on File>>
== END 2020-05-24 23:59 | disposition home or self-care (01) ==
LOC: ONCMED 05:43
PROVIDERS: Internal Medicine Medical Oncology; Nurse Practitioner; PCP Internal Medicine; Visit Provider Internal Medicine Hematology & Oncology
DX: Z51.12 Encounter for antineoplastic immunotherapy (principal); Z51.11 Encounter for antineoplastic chemotherapy; C34.91 Malignant neoplasm of unspecified part of right bronchus or lung; C78.2 Secondary malignant neoplasm of pleura; C77.1 Secondary and unspecified malignant neoplasm of intrathoracic lymph nodes; C78.7 Secondary malignant neoplasm of liver and intrahepatic bile duct; C79.51 Secondary malignant neoplasm of bone; D70.1 Agranulocytosis secondary to cancer chemotherapy; D69.59 Other secondary thrombocytopenia; T45.1X5A Adverse effect of antineoplastic and immunosuppressive drugs, initial encounter; J44.9 Chronic obstructive pulmonary disease, unspecified; I10 Essential (primary) hypertension; E78.5 Hyperlipidemia, unspecified; I48.91 Unspecified atrial fibrillation
CPT/HCPCS: 36415; 80048; 80053; 84443; 85025; 87635; 96367; 96372; 96375; 96413; 96417; 99214; J1100; J1442; J2405; J2469; J7040; J7050; J9022; J9045; J9181; Q5101

== ENCOUNTER 2020-06-04 09:44 | Outpatient (CLI) | payer MEDICARE, SELFPAY ==
--- NOTE | 2020-06-04 10:37 | CT_ITS ---
WS: [id number] CT CHEST WITH INTRAVENOUS CONTRAST HISTORY: LUNG CANCER TECHNIQUE: Contiguous 5 mm axial imaging performed on the thorax. Coronal and sagittal reformats are submitted. All CT scans at [facility] use at least one of these dose optimization techniq ues: automated exposure control; mA and/or kV adjustment per patient size (includes targeted exams wh ere dose is matched to clinical indication); or iterative reconstruction. CONTRAST: Omnipaque 300; 95 mL IV. DLP: 1120.38 mGycm COMPARISON: 04/02/2020 Significant interval improvement in the previously described mediastinal tumor. There is residual sof t tissue centered in the inferior RIGHT paratracheal location extending to the hilum. Largest diamete r of the residual soft tissue 3.1 x 1.6 cm. There is no longer encasement of the SVC. Very minimal th ickening of the RIGHT hilar soft tissue. No new or increasing lymph nodes. Also significant improveme nt in the previously described small satellite nodules and pleural-based nodules throughout the RIGHT lung. There is a 6 mm nodule seen on image 29 of series 3 in the RIGHT lower lobe which may be scar. Chronic emphysema. Resolved RIGHT pleural effusion. RIGHT thyroid nodule measures 2.4 x 2.3 cm. Moderate atherosclerosis aorta. Normal size pulmonary art susannah. Moderate size hiatal hernia. Significant decrease in size of the metastatic nodule in the medial RIGHT lobe of the liver now measu ring 1.9 x 3.0 cm. Cholelithiasis. No adrenal mass. There are new osteoporotic compression fractures and anterior wedging in the thoraci c spine. I suspect these are at T3, T4, T5, T6 and T12. No retropulsion. No change since 04/02/2020 bu t new since 08/24/2018. CT/CT chest w con* [id number] IMPRESSION: 1. Significant improvement in the RIGHT hilar confluent mass with satellite no dules and nearly resolved RIGHT pleural nodules. Residual mass in the inferior RIGHT paratracheal region has a maximum diameter of 3.1 cm. 2. Moderate decrease in size of metastatic lesion in the RIGHT lobe of the donte er now measuring 1.9 x 3.0 cm. 3. RIGHT thyroid nodule measures 2.4 x 2.3 cm. 4. Minimal anterior compression fractures in the thoracic spine with no retrop ulsion.
[2020-06-04] MEDS: iohexol 300 mg/mL 100 mL Btl IV (10:59)
== END 2020-06-04 09:45 | disposition home or self-care (01) ==
LOC: RADWPI 09:46
PROVIDERS: PCP Internal Medicine; Visit Provider Nurse Practitioner
DX: C34.91 Malignant neoplasm of unspecified part of right bronchus or lung (principal); E04.1 Nontoxic single thyroid nodule; K76.9 Liver disease, unspecified
CPT/HCPCS: 71260; Q9967

== ENCOUNTER 2020-06-18 07:50 | Outpatient (RCR) | payer MEDICARE, SELFPAY ==
[2020-05-28 10:01] LABS: Basophils # 0.1 10^3/uL (0.0-0.1); Basophils % 0.9 %; Hematocrit 33.1 % (42.0-52.0); Hemoglobin 10.6 g/dL (11.7-16.6); Lymphocytes # 0.7 10^3/uL (0.8-4.8); Lymphocytes % 12.5 %; Mean Corpuscular Hemoglobin 27.6 pg (28.0-34.0); Mean Corpuscular Volume 86.2 fL (80-94); Mean Platelet Volume 10.1 fL (7.4-10.4); Monocytes # 0.1 10^3/uL (0.2-0.9); Monocytes % 1.1 %; Neutrophils # 4.56 10^3/uL (1.8-7.7); Neutrophils % 83.5 %; Nucleated Red Blood Cells % 0 %; Platelet Count 584 10^3/cmm (130-400); Red Blood Count 3.84 10^6/uL (4.1-5.3); Red Cell Distribution Width 13.6 % (12.1-15.1); White Blood Count 5.5 10^3/uL (4.0-10.0)
[2020-05-28 10:37] LABS: Slide Review Slide Review Perform
[2020-05-28 11:16] LABS: Alanine Aminotransferase 17 U/L (0-41); Albumin Level 4.1 g/dL (3.5-5.2); Alkaline Phosphatase 114 IU/L (40-130); Chloride 88 mmol/L (98-107); Potassium 3.8 mmol/L (3.5-5.1); Sodium 138 mmol/L (136-145)
[2020-05-28 12:07] LABS: Anion Gap 21.8 (5-19); Aspartate Amino Transferase 32 U/L (0-40); Blood Urea Nitrogen 22 mg/dL (8-23); Calcium 8.5 mg/dL (8.5-10.5); Carbon Dioxide 32 mmol/L (22-29); Glucose 107 mg/dL (65-115); Osmolality Calculated 290 mOsm/kg (285-295); Total Bilirubin 0.7 mg/dL (0.15-1.2); Total Protein 7.1 g/dL (6.6-8.7)
[2020-06-04 09:15] LABS: Basophils % 0.7 %; Eosinophils % 0.7 %; Hematocrit 30.4 % (42.0-52.0); Hemoglobin 9.6 g/dL (11.7-16.6); Lymphocytes # 0.8 10^3/uL (0.8-4.8); Lymphocytes % 55.4 %; Mean Corpuscular HGB Conc 31.6 g/dL (30.0-36.0); Mean Corpuscular Hemoglobin 27.2 pg (28.0-34.0); Mean Corpuscular Volume 86.1 fL (80-94); Mean Platelet Volume 9.8 fL (7.4-10.4); Monocytes # 0.3 10^3/uL (0.2-0.9); Monocytes % 24.5 %; Nucleated Red Blood Cells % 0 %; Platelet Count 57 10^3/cmm (130-400); Red Blood Count 3.53 10^6/uL (4.1-5.3); Red Cell Distribution Width 13.1 % (12.1-15.1); White Blood Count 1.4 10^3/uL (4.0-10.0)
[2020-06-04 09:22] LABS: Neutrophils # 0.25 10^3/uL (1.8-7.7)
[2020-06-04 09:43] LABS: Alanine Aminotransferase 14 U/L (0-41); Albumin Level 3.9 g/dL (3.5-5.2); Alkaline Phosphatase 114 IU/L (40-130); Anion Gap 14.5 (5-19); Aspartate Amino Transferase 22 U/L (0-40); Blood Urea Nitrogen 20 mg/dL (8-23); Calcium 9.2 mg/dL (8.5-10.5); Carbon Dioxide 40 mmol/L (22-29); Chloride 86 mmol/L (98-107); Globulin 3.5 g/dL (1.3-4.6); Glucose 98 mg/dL (65-115); Osmolality Calculated 287 mOsm/kg (285-295); Potassium 3.5 mmol/L (3.5-5.1); Sodium 137 mmol/L (136-145); Total Bilirubin 0.5 mg/dL (0.15-1.2); Total Protein 7.4 g/dL (6.6-8.7)
[2020-06-11 10:28] LABS: Mean Corpuscular HGB Conc 31.3 g/dL (30.0-36.0); Mean Corpuscular Hemoglobin 27.8 pg (28.0-34.0); Mean Corpuscular Volume 88.9 fL (80-94); Mean Platelet Volume 10.2 fL (7.4-10.4); Platelet Count 189 10^3/cmm (130-400); Red Cell Distribution Width 15.7 % (12.1-15.1); White Blood Count 12.2 10^3/uL (4.0-10.0)
[2020-06-11 11:19] LABS: Alanine Aminotransferase 14 U/L (0-41); Albumin Level 3.8 g/dL (3.5-5.2); Alkaline Phosphatase 149 IU/L (40-130); Anion Gap 16.9 (5-19); Aspartate Amino Transferase 30 U/L (0-40); Blood Urea Nitrogen 16 mg/dL (8-23); Calcium 8.5 mg/dL (8.5-10.5); Carbon Dioxide 34 mmol/L (22-29); Chloride 87 mmol/L (98-107); Globulin 3.3 g/dL (1.3-4.6); Glucose 121 mg/dL (65-115); Osmolality Calculated 282 mOsm/kg (285-295); Sodium 135 mmol/L (136-145); Total Bilirubin 0.4 mg/dL (0.15-1.2); Total Protein 7.1 g/dL (6.6-8.7)
[2020-06-11 11:28] LABS: Potassium 2.9 mmol/L (3.5-5.1)
[2020-06-11 11:34] LABS: Slide Review Slide Review Perform
[2020-06-11 11:39] LABS: Absolute Neutrophil 7.4 10^3/cmm (1.4-6.5); Absolute Segmented Neutrophil 7.4 10/cmm (1.6-7.1); Anisocytosis 1+; Eosinophils 0 %; Lymphocytes 10 %; Platelet Estimate Normal (Normal); Segmented Neutrophils 61 %; Total Cells Counted 100 (0-100)
[2020-06-13] MEDS: ondansetron 2 mg/ML SDV 2 mL 8 MG IVP (12:55)
[2020-06-13] MEDS: sodium chloride 0.9% 250 ML 75 ML IV (13:00)
[2020-06-14] MEDS: ondansetron 2 mg/ML SDV 2 mL 8 MG IVP (09:25)
[2020-06-15] MEDS: sodium chloride 0.9% 250 ML IV (08:40)
[2020-06-15] MEDS: palonosetron 0.25 mg/5 mL SDV IV (08:40)
--- NOTE | 2020-06-17 10:41 | ONC FU_ITS ---
Dr. Raymond Patient Follow-Up Note Patient: Rafat Park Unit #: [id number]: [id number] Dicatated By: Pedro Pablo Raymond M.D.Date of Visit:Jun 13, 2020 Onc Med Follow-up/Prog Note Chief Complaint: Lung cancer. 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 On 04/02/2020 had presented to the emergency room with shortness of breath and chest pain. His CT pulmonary angiogram showed no evidence of pulmonary embolism. However, there were multiple small pleural-based nodules noted in the right lung and there was a bulky mass noted in the middle mediastinum measuring 9.9 x 5.8 x 9.7 cm. Tumor was noted to extend into the right hilum. A pretracheal superior mediastinal mass measured 3.3 x 2.0 x 3.0 cm and an anterior mediastinal tumor nodule measured 2.1 x 1.5 x 1.8 cm. Other anterior, middle, and posterior mediastinal tumor foci were present. There was a small right pleural effusion. Also noted was a right hepatic lobe mass measuring 6.5 x 5.5 x 5.6 cm, thought to be likely metastasis. He was referred to Dr. Bedolla and 04/06/2020 underwent bronchoscopy/EBUS with FNA biopsy of right paratracheal mass. There were no endobronchial lesions identified. The FNA biopsy was positive for small cell carcinoma favoring lung origin. A staging PET/CT 04/17/2020 showed multiple small FDG avid pleural-based lesions in the right lung, a highly FDG avid anterior mediastinal mass with SUV 11.9, highly FDG avid right paratracheal mass with SUV 16.55, and FDG avid hilar lymphadenopathy bilaterally. There was additional FDG avid adenopathy nodes in the upper abdomen and the mass in the right lobe of the liver was also FDG avid with SUV 17.14. There were multiple sites of FDG avid skeletal lesions including the cervical, thoracic, and lumbar spine, pelvis, sternum, and rib cage. I had seen him initially on 04/24/2020. In the setting of extensive stage small cell lung cancer, he was recommended to undergo treatment with carboplatin/etoposide chemotherapy in combination with atezolizumab. His other medical illnesses include COPD, hypertension, hyperlipidemia, and GERD. 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 He has a history of smoking 2 packs of cigarettes daily for 40 years. He quit smoking in 2006. INTERIM HISTORY: He began cycle 1 of carboplatin/etoposide/atezolizumab on 05/02/2020. It was complicated by neutropenia, requiring growth factor support with Neupogen. He continued with cycle 2 on 05/22/2020. He again required Neupogen for treatment of neutropenia, but with both cycles he recovered uneventfully. His restaging chest CT on 06/04/2020 showed significant improvement in the right hilar mass and associated satellite nodules, but with residual mass in the inferior right paratracheal region measuring 3.1 cm. There is moderate decrease in the size of the metastatic lesion in the right lobe of the liver measuring 1.9 x 3.0 cm. Right thyroid nodule measured 2.4 x 2.3 cm. There were minimal anterior compression fractures noted in the thoracic spine with no retropulsion. He is seen for a follow-up visit. He has been feeling okay, though he still feels generally weak and he has very limited activity. His ECOG score is 3. He says his appetite is slipping. He has had significant weight loss. He does not have fever or night sweats. He has had no mouth sores. He does have shortness of breath, and he has noted oxygen desaturation with activity. He has cough productive of white or creamy sputum. He does not complain of chest pain. He has not been having nausea. He has occasional heartburn. He says his bowels have been off and on. Bladder function has been okay. He still has some pain on his left side. He does not complain of headache or dizziness, and he has no focal neurologic symptoms. Medications: Acetaminophen 1 Tablet (of 500 mg) Oral daily PRN, Aspirin 1 Tablet Tablet, chewable Oral daily, Lasix (40 mg) Tablet Oral daily, metOLazone 1 Tablet (of 2.5 mg) Oral daily on Every Other Day, Mucinex 1 Tablet Tablet SR 12 HR Oral daily, Omeprazole 1 Capsule (of 20 mg) Capsule Delayed Release Oral daily, Potassium 1 Tablet (of 20 meq) Oral t.i.d., Pravastatin Sodium 1 Tablet (of 20 mg) Oral daily, Spiriva Respimat 1 Puff(s) (of 2.5 mcg/act) Aerosol, solution Inhalation daily PRN, Symbicort 1 Puff(s) (of 160-4.5 mcg/act) Aerosol Inhalation daily PRN, Ventolin HFA 1 Puff(s) (of 108 (90 base) mcg/act) Aerosol, solution Inhalation daily PRN Allergies: No Known Allergies. Vital Signs: Performed on Jun 13, 2020 15:50 Height - 73.00 in Temperature - 98.5 F Pulse - 100 /min Respiration - 22 /min BP - 108/64 mm(hg) O2 Sat - 95 % (LOW) Pain - 0 Fatigue - 0 Performed on Jun 13, 2020 12:06 Height - 73.00 in Weight - 210.8 lbs (LOW) BSA - 2.20 sq.m BMI - 27.81 Temperature - 98.0 F (LOW) Pulse - 88 /min Respiration - 20 /min BP - 143/77 mm(hg) (HIGH) O2 Sat - 90 % (LOW) Pain - 5 Physical Examination: Constitutional - He appears generally weak, Eyes - Sclerae nonicteric. Conjunctivae clear, ENMT - No lesions noted in the oral cavity, Hematologic/Lymphatic - No cervical, clavicular, or axillary adenopathy, Respiratory - Lungs show diminished air movement with coarse breath sounds bilaterally, Cardiovascular - Heart rhythm appears regular. There is no murmur, gallop, or rub noted, Abdomen - Soft. Liver and spleen are not enlarged. There is no abdominal mass or ascites noted and there is no inguinal adenopathy, Extremities - Mild edema, Neurologic - No focal neurologic deficits noted. Lab/Imaging: Test performed on Jun 11, 2020 09:07 Sodium 135 mmol/L Potassium 2.9 mmol/L Chloride 87 mmol/L CO2 34 mmol/L Anion Gap 16.9 BUN 16 mg/dL Creatinine 1.1 mg/dL Cr Clearance (Est) 91.2100 mL/min Glucose 121 mg/dL Osmolality - Calculated 282 mOsm/kg Calcium 8.5 mg/dL Protein, Total 7.1 g/dL Albumin 3.8 g/dL Globulin 3.3 g/dL Bilirubin, Total 0.4 mg/dL ALT (SGPT) 14 U/L AST (SGOT) 30 U/L Alkaline Phosphatase 149 IU/L WBC 12.2 10 3/uL Manual Segs % 61 % Manual Bands % 0.0 % RBC 3.60 10 6/uL HGB 10.0 g/dL Manual Lymphs % 10 % Atypical Lymphs % 10.0 % HCT 32.0 % MCV 88.9 fL Total Cells Counted 100 Manual Monos % 8.0 % MCH 27.8 pg Manual Eos % 0 % MCHC 31.3 g/dL Manual Basos % 0.0 % RDW 15.7 % Metamyelocytes % 10.0 % Platelet Count 189 10 3/cmm MPV 10.2 fL CBC Slide Review Slide Review Perform Anisocytosis 1+ Platelet Estimate Normal Manual Segs Abs 7.4 10/cmm Manual Bands Abs 0.0 10 3/cmm Manual Neutrophils Abs 7.4 10 3/cmm Manual Monocytes Abs 1.0 10 3/cmm Manual Eosinophils Abs 0.0 10 3/cmm Manual Basophils Abs 0.0 10 3/cmm Problem List: 1. Small cell lung cancer, stage IVB (TX, N3, M1c). Staging PET/CT showed extensive disease including multiple pleural-based metastatic lesions in the right lung and bulky mediastinal lymph node involvement as well as liver and bony metastatic disease. A primary lesion was not clearly identified, but the pattern of metastatic disease suggests that the most likely source was the right lung. 2. He underwent bronchoscopy/EBUS with FNA biopsy of right paratracheal mass on 04/06/2020. 3. COPD. 4. Hypertension. 5. Hyperlipidemia. 6. 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 Problems Addressed with this Encounter and Plan: 1. Small cell lung cancer, stage IVB (TX, N3, M1c), with extensive metastatic involvement by staging PET/CT. He has been undergoing treatment with carboplatin/etoposide chemotherapy in combination with atezolizumab. He has completed 2 cycles of treatment. He appears to be showing a very good response by restaging CT scan. Both cycles of chemotherapy were complicated by neutropenia requiring growth factor support with Neupogen, but with uneventful recovery. He also has moderately severe anemia, but overall he is tolerating treatment well. With evidence of significant response, he will proceed now with cycle 3 of carboplatin/etoposide/atezolizumab. He has at high risk for adverse effects from his treatment, including chemotherapy related neutropenia and anemia. As such, his chemotherapy dosages will now will be reduced. Blood counts will be monitored weekly. He will have retreatment with Neupogen and/or PRBC transfusion as indicated. He returns in 3 weeks. 2. He has extensive metastatic bone involvement. I will plan to add supportive therapy with denosumab beginning with his next cycle of chemotherapy. 3. He has poor performance status with generalized weakness and very limited activity tolerance. I am going to look into the possibility of getting him set up for physical therapy. 4. He has constipation. He is given instructions to start a bowel regimen with senna/docusate. Signed By: Pedro Pablo Raymond M.D. <<Signature on File>>
[2020-06-18 08:48] LABS: Basophils % 0.8 %; Eosinophils % 0.2 %; Hematocrit 30.5 % (42.0-52.0); Hemoglobin 9.5 g/dL (11.7-16.6); Lymphocytes # 0.8 10^3/uL (0.8-4.8); Lymphocytes % 15.2 %; Mean Corpuscular HGB Conc 31.1 g/dL (30.0-36.0); Mean Corpuscular Hemoglobin 28.2 pg (28.0-34.0); Mean Corpuscular Volume 90.5 fL (80-94); Mean Platelet Volume 9.7 fL (7.4-10.4); Monocytes % 0.8 %; Neutrophils # 4.19 10^3/uL (1.8-7.7); Neutrophils % 82.6 %; Nucleated Red Blood Cells % 0 %; Platelet Count 228 10^3/cmm (130-400); Red Blood Count 3.37 10^6/uL (4.1-5.3); White Blood Count 5.1 10^3/uL (4.0-10.0)
[2020-06-18 08:58] LABS: Anion Gap 14.2 (5-19); Blood Urea Nitrogen 24 mg/dL (8-23); Calcium 9.2 mg/dL (8.5-10.5); Carbon Dioxide 36 mmol/L (22-29); Chloride 89 mmol/L (98-107); Glucose 122 mg/dL (65-115); Osmolality Calculated 287 mOsm/kg (285-295); Potassium 3.2 mmol/L (3.5-5.1); Sodium 136 mmol/L (136-145)
== END 2020-06-24 23:59 | disposition home or self-care (01) ==
LOC: ONCMED 07:50
PROVIDERS: Internal Medicine Hematology & Oncology; Nurse Practitioner; PCP Internal Medicine; Visit Provider Internal Medicine Medical Oncology
DX: Z51.12 Encounter for antineoplastic immunotherapy (principal); Z51.11 Encounter for antineoplastic chemotherapy; C34.91 Malignant neoplasm of unspecified part of right bronchus or lung; C78.7 Secondary malignant neoplasm of liver and intrahepatic bile duct; C79.51 Secondary malignant neoplasm of bone; J44.9 Chronic obstructive pulmonary disease, unspecified; I10 Essential (primary) hypertension; E78.5 Hyperlipidemia, unspecified; H81.03 Meniere's disease, bilateral; Z79.899 Other long term (current) drug therapy
CPT/HCPCS: 36415; 80048; 80053; 85007; 85025; 96367; 96372; 96375; 96413; 96417; 99215; J1100; J2405; J2469; J7040; J7050; J9022; J9045; J9181; Q5101

== ENCOUNTER 2020-06-29 05:31 | Outpatient (RCR) | payer MEDICARE, SELFPAY ==
[2020-06-25] VITALS (10 sets, daily range): BP systolic 112–120; BP diastolic 62–68; PULSE 89–98; RESP 18–20; TEMP 36.2–37; O2SAT 97–99
[2020-06-25 09:13] LABS: Basophils % 2.7 %; Eosinophils % 1.8 %; Hematocrit 23.1 % (42.0-52.0); Hemoglobin 7.4 g/dL (11.7-16.6); Lymphocytes # 0.7 10^3/uL (0.8-4.8); Lymphocytes % 59.8 %; Mean Corpuscular Hemoglobin 28.8 pg (28.0-34.0); Mean Corpuscular Volume 89.9 fL (80-94); Mean Platelet Volume 10.1 fL (7.4-10.4); Monocytes # 0.1 10^3/uL (0.2-0.9); Monocytes % 6.3 %; Neutrophils % 29.4 %; Nucleated Red Blood Cells % 0 %; Platelet Count 42 10^3/cmm (130-400); Red Blood Count 2.57 10^6/uL (4.1-5.3); Red Cell Distribution Width 15.2 % (12.1-15.1); White Blood Count 1.1 10^3/uL (4.0-10.0)
[2020-06-25 09:29] LABS: Blood Urea Nitrogen 25 mg/dL (8-23); Calcium 9.3 mg/dL (8.5-10.5); Carbon Dioxide 35 mmol/L (22-29); Chloride 94 mmol/L (98-107); Glucose 89 mg/dL (65-115); Osmolality Calculated 288 mOsm/kg (285-295); Sodium 137 mmol/L (136-145)
[2020-06-25 09:30] LABS: Neutrophils # 0.33 10^3/uL (1.8-7.7)
[2020-06-25] MEDS: diphenhydrAMINE 25 mg Capsule PO (10:45)
[2020-06-25] MEDS: acetaminophen 325 mg Tablet 650 MG PO (10:45)
[2020-06-25] MEDS: sodium chloride 0.9% 250 ML 999 ML IV (10:45)
[2020-06-25] MEDS: FUROsemide 10 mg/mL SDV 2mL 20 MG IV (14:30)
[2020-06-28 09:08] LABS: Basophils % 1.6 %; Eosinophils % 2.1 %; Hematocrit 29.9 % (42.0-52.0); Hemoglobin 9.6 g/dL (11.7-16.6); Lymphocytes # 0.8 10^3/uL (0.8-4.8); Lymphocytes % 43.2 %; Mean Corpuscular HGB Conc 32.1 g/dL (30.0-36.0); Mean Corpuscular Hemoglobin 28.7 pg (28.0-34.0); Mean Corpuscular Volume 89.5 fL (80-94); Mean Platelet Volume 11.2 fL (7.4-10.4); Monocytes # 0.5 10^3/uL (0.2-0.9); Monocytes % 25.3 %; Neutrophils % 26.7 %; Nucleated Red Blood Cells % 0 %; Red Blood Count 3.34 10^6/uL (4.1-5.3); Red Cell Distribution Width 15.2 % (12.1-15.1); White Blood Count 1.9 10^3/uL (4.0-10.0)
[2020-06-28 10:09] LABS: Neutrophils # 0.51 10^3/uL (1.8-7.7); Platelet Count 26 10^3/cmm (130-400); Slide Review Slide Review Perform
[2020-06-29 08:55] LABS: Basophils # 0.1 10^3/uL (0.0-0.1); Basophils % 1.3 %; Eosinophils % 0.8 %; Hematocrit 26.1 % (42.0-52.0); Hemoglobin 8.2 g/dL (11.7-16.6); Lymphocytes # 0.8 10^3/uL (0.8-4.8); Lymphocytes % 20.5 %; Mean Corpuscular HGB Conc 31.4 g/dL (30.0-36.0); Mean Corpuscular Hemoglobin 29.1 pg (28.0-34.0); Mean Corpuscular Volume 92.6 fL (80-94); Mean Platelet Volume 11.4 fL (7.4-10.4); Monocytes # 0.8 10^3/uL (0.2-0.9); Monocytes % 21.2 %; Neutrophils % 51.8 %; Nucleated Red Blood Cells % 0 %; Platelet Count 29 10^3/cmm (130-400); Red Blood Count 2.82 10^6/uL (4.1-5.3); Red Cell Distribution Width 15.9 % (12.1-15.1); White Blood Count 3.9 10^3/uL (4.0-10.0)
[2020-06-29 09:23] LABS: Slide Review Slide Review Perform
== END 2020-06-29 23:59 | disposition home or self-care (01) ==
LOC: ONCMED 05:31
PROVIDERS: Internal Medicine Hematology & Oncology; Internal Medicine Medical Oncology; PCP Internal Medicine; Visit Provider Nurse Practitioner
DX: C34.91 Malignant neoplasm of unspecified part of right bronchus or lung (principal); C79.51 Secondary malignant neoplasm of bone; C78.7 Secondary malignant neoplasm of liver and intrahepatic bile duct
CPT/HCPCS: 36415; 36430; 36591; 80048; 85025; 86850; 86900; 86920; 96372; J1940; J7050; P9040; Q5101

== ENCOUNTER 2020-07-01 06:00 | Outpatient (RCR) | payer MEDICARE, SELFPAY ==
[2020-06-30 09:35] VITALS: BP 123/70; PULSE 78; RESP 18; TEMP 36.3; O2SAT 92
[2020-06-30 09:36] VITALS: BMI 30.3
[2020-07-01 09:38] VITALS: BP 106/47; PULSE 88; RESP 16; TEMP 36.8; O2SAT 92
== END 2020-07-22 23:59 | disposition home or self-care (01) ==
LOC: OPS 06:00
PROVIDERS: PCP Internal Medicine; Visit Provider Internal Medicine Medical Oncology
DX: C34.91 Malignant neoplasm of unspecified part of right bronchus or lung (principal); C78.7 Secondary malignant neoplasm of liver and intrahepatic bile duct; C79.51 Secondary malignant neoplasm of bone
CPT/HCPCS: 96372; Q5101

== ENCOUNTER 2020-07-20 05:43 | Outpatient (RCR) | payer MEDICARE, SELFPAY ==
[2020-07-02 08:25] LABS: Basophils % 0.1 %; Eosinophils % 0.1 %; Hematocrit 29.9 % (42.0-52.0); Hemoglobin 9.6 g/dL (11.7-16.6); Lymphocytes # 1.7 10^3/uL (0.8-4.8); Lymphocytes % 8.8 %; Mean Corpuscular HGB Conc 32.1 g/dL (30.0-36.0); Mean Corpuscular Hemoglobin 29.6 pg (28.0-34.0); Mean Corpuscular Volume 92.3 fL (80-94); Mean Platelet Volume 11.9 fL (7.4-10.4); Monocytes # 2.3 10^3/uL (0.2-0.9); Monocytes % 12.4 %; Neutrophils # 12.86 10^3/uL (1.8-7.7); Nucleated Red Blood Cells % 0.2 %; Platelet Count 76 10^3/cmm (130-400); Red Blood Count 3.24 10^6/uL (4.1-5.3); Red Cell Distribution Width 17.6 % (12.1-15.1); White Blood Count 18.9 10^3/uL (4.0-10.0)
[2020-07-02 09:02] LABS: Alanine Aminotransferase 10 U/L (0-41); Albumin Level 3.9 g/dL (3.5-5.2); Alkaline Phosphatase 146 IU/L (40-130); Anion Gap 13.8 (5-19); Aspartate Amino Transferase 21 U/L (0-40); Blood Urea Nitrogen 18 mg/dL (8-23); Calcium 9.1 mg/dL (8.5-10.5); Carbon Dioxide 35 mmol/L (22-29); Chloride 89 mmol/L (98-107); Globulin 3.1 g/dL (1.3-4.6); Glucose 109 mg/dL (65-115); Osmolality Calculated 282 mOsm/kg (285-295); Sodium 135 mmol/L (136-145); Total Bilirubin 0.3 mg/dL (0.15-1.2)
[2020-07-02 09:09] LABS: Potassium 2.8 mmol/L (3.5-5.1)
[2020-07-20 08:36] LABS: Basophils # 0.1 10^3/uL (0.0-0.1); Eosinophils # 0.1 10^3/uL (0.0-0.8); Eosinophils % 2.5 %; Lymphocytes # 1.1 10^3/uL (0.8-4.8); Lymphocytes % 20.3 %; Mean Corpuscular Hemoglobin 30.5 pg (28.0-34.0); Mean Corpuscular Volume 101.7 fL (80-94); Mean Platelet Volume 9.5 fL (7.4-10.4); Monocytes # 0.8 10^3/uL (0.2-0.9); Monocytes % 15.7 %; Neutrophils # 3.12 10^3/uL (1.8-7.7); Neutrophils % 60.3 %; Nucleated Red Blood Cells % 0 %; Platelet Count 193 10^3/cmm (130-400); Red Blood Count 2.95 10^6/uL (4.1-5.3); Red Cell Distribution Width 19.5 % (12.1-15.1); White Blood Count 5.2 10^3/uL (4.0-10.0)
[2020-07-20 08:53] LABS: Alanine Aminotransferase 9 U/L (0-41); Albumin Level 3.6 g/dL (3.5-5.2); Alkaline Phosphatase 87 IU/L (40-130); Anion Gap 11.1 (5-19); Aspartate Amino Transferase 13 U/L (0-40); Blood Urea Nitrogen 15 mg/dL (8-23); Calcium 9.1 mg/dL (8.5-10.5); Carbon Dioxide 31 mmol/L (22-29); Chloride 103 mmol/L (98-107); Globulin 3.1 g/dL (1.3-4.6); Glucose 90 mg/dL (65-115); Osmolality Calculated 292 mOsm/kg (285-295); Potassium 4.1 mmol/L (3.5-5.1); Sodium 141 mmol/L (136-145); Total Bilirubin 0.3 mg/dL (0.15-1.2); Total Protein 6.7 g/dL (6.6-8.7)
== END 2020-07-22 23:59 | disposition home or self-care (01) ==
LOC: ONCMED 05:43
PROVIDERS: PCP Internal Medicine; Visit Provider Internal Medicine Medical Oncology
DX: C34.91 Malignant neoplasm of unspecified part of right bronchus or lung (principal); C78.7 Secondary malignant neoplasm of liver and intrahepatic bile duct; C79.51 Secondary malignant neoplasm of bone
CPT/HCPCS: 36591; 80053; 85025

== ENCOUNTER 2020-08-15 10:41 | Outpatient (CLI) | payer MEDICARE, SELFPAY ==
--- NOTE | 2020-08-15 11:05 | CT_ITS ---
WS: [id number] CT CHEST TECHNIQUE: Contrast enhanced CT of the chest with coronal and sagittal reformatted images. CLINICAL INFORMATION: LUNG CANCER FOLLOWUP COMPARISON: CT June 04, 2020 DLP: 992.[address] scans at [facility] use at least one of these dose optimization techniques: automat ed exposure control; mA and/or kV adjustment per patient size (includes targeted exams where dose is matched to clinical indication); or iterative reconstruction. FINDINGS: Moderate chronic emphysematous change. Previously described right paratracheal soft tissue thickening about the right hilum has slightly improved compared to previous. Today this measures approximately 2.1 x 1.1 cm compared to 3.1 x 1.6 cm previous. No evidence of disease progression. No mediastinal or hilar lymphadenopathy. Heterogeneous right thyroid nodule with mediastinal extension is unchanged me asuring 2.4 x 2.4 CM. Aortic calcification. Coronary calcification. No axillary lymphadenopathy. Righ t Port-A-Cath. Small subcentimeter nodules in the right lower lobe and right middle lobe anteriorly are unchanged. N o evidence of disease progression. Cholelithiasis partially visualized. Partially visualized hepatic lesion adjacent to the gallbladder measures 2.3 x 1.8 cm and appears unchanged although incompletely included on this exam today. Modera te esophageal hiatal hernia. Adrenal glands are normal. Osteopenia. Mild thoracic kyphosis. Multiple chronic appearing compression deformities in the thoraci c spine. New compression involving the inferior endplate T7 is new from previous but appears chronic. No significant retropulsion. Mild compression of the superior endplates at T5 and T6 appears stable. Mild compression of the T12 superior endplate appears stable. Chronic healed left fractures with sally nakul formation. CT/CT chest w con* [id number] IMPRESSION: 1. No evidence of disease progression. 2. Soft tissue thickening right paratracheal region in a suprahilar location i s improved slightly from previous but not significantly changed measuring 2.0 x 1.1 CM. 3. Additional stable subpleural nodules in the right middle lobe and right low er lobe unchanged. 4. No mediastinal or hilar lymphadenopathy. 5. Stable heterogeneous thyroid nodule with mediastinal extension. 6. Partially visualized cholelithiasis. 7. Right hepatic lesion partially visualized appears stable. 8. Moderate esophageal hiatal hernia. This is stable. 9. Multiple chronic appearing compression fractures in the thoracic spine. No retropulsion. Mild compression inferior endplate T7 is new from previous.
[2020-08-15] MEDS: iohexol 300 mg/mL 100 mL Btl IV (11:21)
== END 2020-08-15 10:42 | disposition home or self-care (01) ==
LOC: RADWPI 11:00
PROVIDERS: PCP Internal Medicine; Visit Provider Nurse Practitioner
DX: C34.91 Malignant neoplasm of unspecified part of right bronchus or lung (principal); S22.000A Wedge compression fracture of unspecified thoracic vertebra, initial encounter for closed fracture; X58.XXXA Exposure to other specified factors, initial encounter; K44.9 Diaphragmatic hernia without obstruction or gangrene; K76.9 Liver disease, unspecified; K80.20 Calculus of gallbladder without cholecystitis without obstruction
CPT/HCPCS: 71260; Q9967

== ENCOUNTER 2020-08-22 05:35 | Outpatient (RCR) | payer MEDICARE, SELFPAY ==
[2020-07-24 11:05] LABS: Basophils # 0.1 10^3/uL (0.0-0.1); Basophils % 0.9 %; Eosinophils # 0.3 10^3/uL (0.0-0.8); Eosinophils % 5.5 %; Hematocrit 31.8 % (42.0-52.0); Hemoglobin 9.7 g/dL (11.7-16.6); Lymphocytes # 1.1 10^3/uL (0.8-4.8); Lymphocytes % 19.6 %; Mean Corpuscular HGB Conc 30.5 g/dL (30.0-36.0); Mean Corpuscular Hemoglobin 30.5 pg (28.0-34.0); Mean Platelet Volume 10.3 fL (7.4-10.4); Monocytes # 0.8 10^3/uL (0.2-0.9); Monocytes % 13.8 %; Neutrophils # 3.26 10^3/uL (1.8-7.7); Neutrophils % 59.8 %; Nucleated Red Blood Cells % 0 %; Platelet Count 194 10^3/cmm (130-400); Red Blood Count 3.18 10^6/uL (4.1-5.3); Red Cell Distribution Width 18.5 % (12.1-15.1); White Blood Count 5.5 10^3/uL (4.0-10.0)
[2020-07-24 11:26] LABS: Alanine Aminotransferase 8 U/L (0-41); Albumin Level 3.8 g/dL (3.5-5.2); Alkaline Phosphatase 92 IU/L (40-130); Anion Gap 10.7 (5-19); Aspartate Amino Transferase 15 U/L (0-40); Blood Urea Nitrogen 12 mg/dL (8-23); Calcium 9.5 mg/dL (8.5-10.5); Carbon Dioxide 35 mmol/L (22-29); Chloride 98 mmol/L (98-107); Globulin 3.3 g/dL (1.3-4.6); Glucose 84 mg/dL (65-115); Osmolality Calculated 289 mOsm/kg (285-295); Potassium 3.7 mmol/L (3.5-5.1); Sodium 140 mmol/L (136-145); Total Bilirubin 0.3 mg/dL (0.15-1.2); Total Protein 7.1 g/dL (6.6-8.7)
[2020-07-25] MEDS: ondansetron 2 mg/ML SDV 2 mL 8 MG IVP (09:51)
[2020-07-25] MEDS: sodium chloride 0.9% 250 ML IV (09:51)
[2020-07-25] MEDS: denosumab 120 mg SDV SUBCUT (10:20)
[2020-07-25] MEDS: FUROsemide 10 mg/mL SDV 2mL 20 MG IV (13:06)
[2020-07-26] MEDS: ondansetron 2 mg/ML SDV 2 mL 8 MG IVP (09:25)
[2020-07-26] MEDS: sodium chloride 0.9% 250 ML IV (09:25)
[2020-07-27] MEDS: palonosetron 0.25 mg/5 mL SDV IVP (09:04)
[2020-07-27] MEDS: sodium chloride 0.9% 250 ML IV (09:04)
[2020-07-27] MEDS: pegfilgrastim 6 mg/0.6 mL Kit (onpro) SUBCUT (10:45)
[2020-07-31 10:01] LABS: Basophils % 0.1 %; Eosinophils # 0.2 10^3/uL (0.0-0.8); Eosinophils % 0.6 %; Hematocrit 29.4 % (42.0-52.0); Hemoglobin 9.2 g/dL (11.7-16.6); Lymphocytes # 1.1 10^3/uL (0.8-4.8); Lymphocytes % 3.5 %; Mean Corpuscular HGB Conc 31.3 g/dL (30.0-36.0); Mean Corpuscular Hemoglobin 31.4 pg (28.0-34.0); Mean Corpuscular Volume 100.3 fL (80-94); Mean Platelet Volume 10.5 fL (7.4-10.4); Monocytes # 0.3 10^3/uL (0.2-0.9); Neutrophils # 23.85 10^3/uL (1.8-7.7); Neutrophils % 75.1 %; Nucleated Red Blood Cells % 0 %; Platelet Count 103 10^3/cmm (130-400); Red Blood Count 2.93 10^6/uL (4.1-5.3); Red Cell Distribution Width 16.7 % (12.1-15.1)
[2020-07-31 10:20] LABS: Slide Review Slide Review Perform; White Blood Count 31.8 10^3/uL (4.0-10.0)
[2020-07-31 10:46] LABS: Alanine Aminotransferase 9 U/L (0-41); Albumin Level 3.8 g/dL (3.5-5.2); Alkaline Phosphatase 195 IU/L (40-130); Anion Gap 12.5 (5-19); Aspartate Amino Transferase 18 U/L (0-40); Blood Urea Nitrogen 17 mg/dL (8-23); Calcium 8.7 mg/dL (8.5-10.5); Carbon Dioxide 33 mmol/L (22-29); Chloride 95 mmol/L (98-107); Glucose 72 mg/dL (65-115); Osmolality Calculated 284 mOsm/kg (285-295); Potassium 3.5 mmol/L (3.5-5.1); Sodium 137 mmol/L (136-145); Thyroid Stimulating Hormone 1.86 uIU/mL (0.27-4.20); Total Bilirubin 0.7 mg/dL (0.15-1.2); Total Protein 6.8 g/dL (6.6-8.7)
[2020-08-07 11:39] LABS: Basophils # 0.1 10^3/uL (0.0-0.1); Basophils % 1.6 %; Eosinophils % 1.1 %; Hematocrit 29.5 % (42.0-52.0); Hemoglobin 9.4 g/dL (11.7-16.6); Lymphocytes % 27.3 %; Mean Corpuscular HGB Conc 31.9 g/dL (30.0-36.0); Mean Corpuscular Hemoglobin 31.4 pg (28.0-34.0); Mean Corpuscular Volume 98.7 fL (80-94); Mean Platelet Volume 11.2 fL (7.4-10.4); Monocytes # 0.6 10^3/uL (0.2-0.9); Monocytes % 16.1 %; Neutrophils % 53.6 %; Nucleated Red Blood Cells % 0 %; Platelet Count 61 10^3/cmm (130-400); Red Blood Count 2.99 10^6/uL (4.1-5.3); Red Cell Distribution Width 15.9 % (12.1-15.1); White Blood Count 3.7 10^3/uL (4.0-10.0)
[2020-08-07 12:07] LABS: Alanine Aminotransferase 11 U/L (0-41); Albumin Level 4.2 g/dL (3.5-5.2); Alkaline Phosphatase 112 IU/L (40-130); Anion Gap 15.7 (5-19); Aspartate Amino Transferase 18 U/L (0-40); Blood Urea Nitrogen 22 mg/dL (8-23); Calcium 8.4 mg/dL (8.5-10.5); Carbon Dioxide 36 mmol/L (22-29); Chloride 87 mmol/L (98-107); Globulin 3.5 g/dL (1.3-4.6); Glucose 97 mg/dL (65-115); Osmolality Calculated 285 mOsm/kg (285-295); Sodium 136 mmol/L (136-145); Total Bilirubin 0.6 mg/dL (0.15-1.2); Total Protein 7.7 g/dL (6.6-8.7)
[2020-08-07 12:15] LABS: Potassium 2.7 mmol/L (3.5-5.1)
[2020-08-09 09:07] LABS: Magnesium 1.6 mg/dL (1.7-2.3)
--- NOTE | 2020-08-10 20:54 | ONC FU_ITS ---
Chloe Kim Patient Note Patient: Rafat Park Unit #: [id number]: [id number] Dictated By: Fany JiménezDate of Visit: Jul 25, 2020 Onc MED Follow-Up/Prog Note Chief Complaint: Lung cancer. 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 On 04/02/2020 had presented to the emergency room with shortness of breath and chest pain. His CT pulmonary angiogram showed no evidence of pulmonary embolism. However, there were multiple small pleural-based nodules noted in the right lung and there was a bulky mass noted in the middle mediastinum measuring 9.9 x 5.8 x 9.7 cm. Tumor was noted to extend into the right hilum. A pretracheal superior mediastinal mass measured 3.3 x 2.0 x 3.0 cm and an anterior mediastinal tumor nodule measured 2.1 x 1.5 x 1.8 cm. Other anterior, middle, and posterior mediastinal tumor foci were present. There was a small right pleural effusion. Also noted was a right hepatic lobe mass measuring 6.5 x 5.5 x 5.6 cm, thought to be likely metastasis. He was referred to Dr. Bedolla and 04/06/2020 underwent bronchoscopy/EBUS with FNA biopsy of right paratracheal mass. There were no endobronchial lesions identified. The FNA biopsy was positive for small cell carcinoma favoring lung origin. A staging PET/CT 04/17/2020 showed multiple small FDG avid pleural-based lesions in the right lung, a highly FDG avid anterior mediastinal mass with SUV 11.9, highly FDG avid right paratracheal mass with SUV 16.55, and FDG avid hilar lymphadenopathy bilaterally. There was additional FDG avid adenopathy nodes in the upper abdomen and the mass in the right lobe of the liver was also FDG avid with SUV 17.14. There were multiple sites of FDG avid skeletal lesions including the cervical, thoracic, and lumbar spine, pelvis, sternum, and rib cage. Dr Raymond had seen him initially on 04/24/2020. In the setting of extensive stage small cell lung cancer, he was recommended to undergo treatment with carboplatin/etoposide chemotherapy in combination with atezolizumab. His other medical illnesses include COPD, hypertension, hyperlipidemia, and GERD. 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 He has a history of smoking 2 packs of cigarettes daily for 40 years. He quit smoking in 2006. INTERIM HISTORY: He began cycle 1 of carboplatin/etoposide/atezolizumab on 05/02/2020. It was complicated by neutropenia, requiring growth factor support with Neupogen. He continued with cycle 2 on 05/22/2020. He again required Neupogen for treatment of neutropenia, but with both cycles he recovered uneventfully. His restaging chest CT on 06/04/2020 showed significant improvement in the right hilar mass and associated satellite nodules, but with residual mass in the inferior right paratracheal region measuring 3.1 cm. There is moderate decrease in the size of the metastatic lesion in the right lobe of the liver measuring 1.9 x 3.0 cm. Right thyroid nodule measured 2.4 x 2.3 cm. There were minimal anterior compression fractures noted in the thoracic spine with no retropulsion. Mr Park is here today for followup. His last cycle of carboplatin etoposide and durvalumab was on June 13, 2020. He received etoposide day 1, 2 and 3. He did require growth factor support for at least 5 days with Zarxio as his ANC on day 8 was 330. His platelet count at that time was 42,000. His platelets nadired on June 28, 2020 at 26,000. They have slowly recovered. He did have a neutrophil count of 2000 on June 29, 2020. He was asymptomatic. He states overall he is doing well. He states he feels good. He denies any shortness of breath orthopnea. He denies any fever or chills. His appetite is good. He denies any diarrhea or constipation. He denies any neuropathy symptoms. He has intermittent bone pain with Zarxio but states it was not anything that was a problem. His ECOG today is 2. 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 wang in 2019 Bronchoscopy/EBUS and FNA biopsy of right paratracheal mass in 2019 Allergies: No Known Allergies. Medications: Acetaminophen 1 Tablet (of 500 mg) Oral daily PRN Aspirin 1 Tablet Tablet, chewable Oral daily Lasix (40 mg) Tablet Oral b.i.d. metOLazone 1 Tablet (of 2.5 mg) Oral daily on Every Other Day Mucinex 1 Tablet Tablet SR 12 HR Oral daily Omeprazole 1 Capsule (of 20 mg) Capsule Delayed Release Oral daily Potassium 1 Tablet (of 20 meq) Oral t.i.d. Pravastatin Sodium 1 Tablet (of 20 mg) Oral daily Spiriva Respimat 1 Puff(s) (of 2.5 mcg/act) Aerosol, solution Inhalation daily PRN Symbicort 1 Puff(s) (of 160-4.5 mcg/act) Aerosol Inhalation daily PRN Ventolin HFA 1 Puff(s) (of 108 (90 base) mcg/act) Aerosol, solution Inhalation daily PRN Family History: Mr. Park's mother at age 62: automoblie. Mr. Park's father at age 64: auto mobile. Mr. Park has 1 brother who is alive. Mother and father in a motor vehicle accident, father at age 64 and mother at age 62. A 66-year-old brother has COPD. Social History: Mr. Park is . Mr. Park quit smoking 15 years ago but had smoked 1.0 pack/day for 50 years. He quit drinking less than one year ago. Review Of Symptoms: Constitutional Denies fevers, chills, night sweats, excessive fatigue or weight loss. He states he feels really good overall. He states overall he is does feel better. Allergic/Immunologic No reactions. Eyes Denies significant visual changes. No diplopia. No amaurosis. ENMT Denies changes in hearing, sore throat, mouth sores, difficulty or changes in swallowing ability, and/or sinus drainage. Hematologic/Lymphatic Denies easy bruising or bleeding. The patient denies any tender or palpable lymph nodes. Respiratory Denies dyspnea on exertion, chest pain, or hemoptysis. Denies orthopnea. Still has cough-some days worse than others-no particular trigger. Cardiovascular Denies anginal chest pain, palpitations or orthopnea. Gastrointestinal Denies nausea, vomiting, diarrhea, GI bleeding, or worsening constipation. Denies change in bowel habits and/or stool color, no heartburn or early satiety. Genitourinary (M) Denies hematuria, dysuria, increased frequency, urgency, hesitancy or incontinence. Musculoskeletal Denies joint pain, swelling or redness. No decreased range of motion. Integumentary Denies chronic rashes, inflammation, ulcerations or skin changes. Neurologic Denies headache, blurred vision, and no areas of focal weakness or numbness. No sensory problems. Persistent generalized weakness requiring mobility assistance with wheelchair at present. Psychiatric Denies insomnia, depression, tamar or mood swings. Vital Signs: Performed on Jul 25, 2020 08:57 Height - 73.00 in Weight - 229.8 lbs (HIGH) BSA - 2.28 sq.m BMI - 30.32 (HIGH) Temperature - 97.6 F (LOW) Pulse - 93 /min Respiration - 20 /min BP - 146/86 mm(hg) (HIGH) O2 Sat - 93 % (LOW) Pain - 0 Fatigue - 5,2 - Ambulatory/capable of all self-care, unable to perform any work activities. Up and about more than 50% of waking hours. (ECOG) Physical Examination: Constitutional Alert, oriented, no acute distress. Skin pink, warm and dry. Head Normocephalic; atraumatic. Eyes Conjunctivae and sclerae are clear and without icterus. Pupils are reactive and equal. Neck Supple without masses or thyromegaly. No jugular venous distension. Hematologic/Lymphatic No petechiae or purpura. No tender or palpable lymph nodes in the cervical or supraclavicular areas. Respiratory Lungs are clear to auscultation without rhonchi but bilateral wheezing that clears after cough.. Cardiovascular Regular rate and rhythm of heart without murmurs,clicks, gallops or rubs. Chest Right PowerPort insertion site is unremarkable. Back/Spine Non-tender to palpation. Extremities No visible deformities, no cyanosis, clubbing or edema. Integumentary No rashes or lesions. Psychiatric Alert and oriented times three. Coherent speech. Verbalizes understanding of our discussions today. Laboratory:Test performed on Jul 24, 2020 08:31 Sodium 140 mmol/L Potassium 3.7 mmol/L Chloride 98 mmol/L CO2 35 mmol/L Anion Gap 10.7 BUN 12 mg/dL Creatinine 0.7 mg/dL Cr Clearance (Est) 119.5200 mL/min Glucose 84 mg/dL Osmolality - Calculated 289 mOsm/kg Calcium 9.5 mg/dL Protein, Total 7.1 g/dL Albumin 3.8 g/dL Globulin 3.3 g/dL Bilirubin, Total 0.3 mg/dL ALT (SGPT) 8 U/L AST (SGOT) 15 U/L Alkaline Phosphatase 92 IU/L WBC 5.5 10 3/uL RBC 3.18 10 6/uL HGB 9.7 g/dL HCT 31.8 % MCV 100.0 fL MCH 30.5 pg MCHC 30.5 g/dL RDW 18.5 % Platelet Count 194 10 3/cmm MPV 10.3 fL Neutrophils 3.26 10 3/uL Lymphocytes 1.1 10 3/uL Monocytes 0.8 10 3/uL Eosinophils 0.3 10 3/uL Basophils 0.1 10 3/uL Neutrophil % 59.8 % Lymphocyte % 19.6 % Monocyte % 13.8 % Eosinophil % 5.5 % Basophils % 0.9 % NRBC % 0 % Impression: 1. Small cell lung cancer, stage IVB (TX, N3, M1c). Staging PET/CT showed extensive disease including multiple pleural-based metastatic lesions in the right lung and bulky mediastinal lymph node involvement as well as liver and bony metastatic disease. A primary lesion was not clearly identified, but the pattern of metastatic disease suggests that the most likely source was the right lung. 2. He underwent bronchoscopy/EBUS with FNA biopsy of right paratracheal mass on 04/06/2020. 3. COPD. 4. Hypertension. 5. Hyperlipidemia. 6. 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 Plan: 1. Small cell lung cancer, stage IVB (TX, N3, M1c), with extensive metastatic involvement by staging PET/CT. He has been undergoing treatment with carboplatin/etoposide chemotherapy in combination with atezolizumab. He has completed 2 cycles of treatment. He appears to be showing a very good response by restaging CT scan. Both cycles of chemotherapy were complicated by neutropenia requiring growth factor support with Neupogen, but with uneventful recovery. He also has moderately severe anemia, but overall he is tolerating treatment well. With evidence of significant response, he will proceed now with cycle 4 of carboplatin/etoposide/atezolizumab. He has at high risk for adverse effects from his treatment, including chemotherapy related neutropenia and anemia. He did require transfusion services on June 25, 2020 for hemoglobin of 7.4. He has not had any further transfusion services since that time. As such, his chemotherapy dosages have been reduced with cycle 3. A. Proceed with cycle 4 Carboplatin/etoposide/Tecentriq with same dosing of cycle 3. B. Labs from July 24, 2020 reviewed in detail and discussed with Mr. Park and a copy was given to him. WBC 5.5, hemoglobin 9.7, platelets 194,000 ANC is 3260. Creatinine 0.7 random glucose 84 LFTs were normal. TSH was requested to be added to blood in lab. Those results are pending at visit. C. I requested support for growth factor with Neulasta as he does have limited mobility and presenting daily for Neupogen has been trying and taxing on he and his family. Will request approval for the Neulasta on pro to hopefully avoid him traveling to the clinic. D. We did discuss potential side effects of neutropenia including fever/chills, fatigue, productive cough, urinary frequency/burning amongst others and he and his family are aware to call if he has any fever 100.4 or greater. E. He will continue with weekly CBC CMP and typenex. I have asked for a TSH with his next visit for monitoring of the immunotherapy. 2. He has extensive metastatic bone involvement. A. Proceed with monthly Xgeva 120 mg starting today. B. He has been encouraged to watch for low-grade fever, bone aches/pain, rash or any other abnormalities after starting the Xgeva. C. He will continue with monthly Xgeva if he tolerates this well. 3. He has poor performance status with generalized weakness and very limited activity tolerance. A. His family indicates that he has had home health referral for possible physical therapy and this is currently in the works. 4. He has chronic constipation. A. He is currently using stool softeners and [id number] laxatives and feels that this is working relatively well. B. We did discuss using MiraLAX as needed. He may also require lactulose if no improvement with the MiraLAX. He and his family were encouraged to call us if he is having further problems. 5. Follow-up plan A. He is due for restaging imaging after 4 cycles of chemotherapy therefore I have requested follow-up CT of the chest with contrast just prior to his next follow-up which would be in 4 weeks. B. I have asked for weekly blood counts as indicated above. C. He will be due for cycle 5 chemotherapy???if he continues chemotherapy and monthly Xgeva at his follow-up in 1 month. D. Mr. Park and his family were encouraged to contact us in the interim should questions or problems arise. Addendum: Mr. Julien interim history states that he is here today for follow-up and his last cycle of carboplatin etoposide and durvalumab was June 13, 2020. It should read his last cycle of carboplatin etoposide and Tecentriq was on June 13, 2020. Signed By: Fany Jiménez-, CNP Pedro Pablo Raymond MD <<Signature on File>>
[2020-08-14 10:04] LABS: Basophils % 0.8 %; Eosinophils % 0.8 %; Hematocrit 30.9 % (42.0-52.0); Hemoglobin 9.7 g/dL (11.7-16.6); Lymphocytes # 1.3 10^3/uL (0.8-4.8); Lymphocytes % 26.7 %; Mean Corpuscular HGB Conc 31.4 g/dL (30.0-36.0); Mean Corpuscular Hemoglobin 31.2 pg (28.0-34.0); Mean Corpuscular Volume 99.4 fL (80-94); Mean Platelet Volume 10.1 fL (7.4-10.4); Monocytes # 0.7 10^3/uL (0.2-0.9); Monocytes % 13.6 %; Neutrophils # 2.78 10^3/uL (1.8-7.7); Neutrophils % 57.3 %; Nucleated Red Blood Cells % 0 %; Platelet Count 236 10^3/cmm (130-400); Red Blood Count 3.11 10^6/uL (4.1-5.3); White Blood Count 4.9 10^3/uL (4.0-10.0)
[2020-08-14 10:34] LABS: Alanine Aminotransferase 12 U/L (0-41); Alkaline Phosphatase 92 IU/L (40-130); Anion Gap 11.5 (5-19); Aspartate Amino Transferase 18 U/L (0-40); Blood Urea Nitrogen 24 mg/dL (8-23); Calcium 9.1 mg/dL (8.5-10.5); Carbon Dioxide 35 mmol/L (22-29); Chloride 95 mmol/L (98-107); Globulin 3.2 g/dL (1.3-4.6); Glucose 103 mg/dL (65-115); Osmolality Calculated 290 mOsm/kg (285-295); Potassium 3.5 mmol/L (3.5-5.1); Sodium 138 mmol/L (136-145); Thyroid Stimulating Hormone 1.24 uIU/mL (0.27-4.20); Total Bilirubin 0.2 mg/dL (0.15-1.2); Total Protein 7.2 g/dL (6.6-8.7)
[2020-08-21 10:52] LABS: Basophils # 0.1 10^3/uL (0.0-0.1); Basophils % 1.2 %; Eosinophils # 0.1 10^3/uL (0.0-0.8); Eosinophils % 1.6 %; Hematocrit 31.4 % (42.0-52.0); Hemoglobin 9.5 g/dL (11.7-16.6); Lymphocytes # 1.1 10^3/uL (0.8-4.8); Lymphocytes % 21.2 %; Mean Corpuscular HGB Conc 30.3 g/dL (30.0-36.0); Mean Corpuscular Hemoglobin 31.7 pg (28.0-34.0); Mean Corpuscular Volume 104.7 fL (80-94); Mean Platelet Volume 9.8 fL (7.4-10.4); Monocytes # 0.9 10^3/uL (0.2-0.9); Monocytes % 17.5 %; Neutrophils # 2.96 10^3/uL (1.8-7.7); Neutrophils % 58.1 %; Nucleated Red Blood Cells % 0 %; Platelet Count 251 10^3/cmm (130-400); Red Cell Distribution Width 15.7 % (12.1-15.1); White Blood Count 5.1 10^3/uL (4.0-10.0)
[2020-08-21 11:17] LABS: Alanine Aminotransferase 8 U/L (0-41); Albumin Level 3.8 g/dL (3.5-5.2); Alkaline Phosphatase 84 IU/L (40-130); Anion Gap 11.4 (5-19); Aspartate Amino Transferase 14 U/L (0-40); Blood Urea Nitrogen 21 mg/dL (8-23); Calcium 9.1 mg/dL (8.5-10.5); Carbon Dioxide 30 mmol/L (22-29); Chloride 104 mmol/L (98-107); Globulin 2.8 g/dL (1.3-4.6); Glucose 90 mg/dL (65-115); Osmolality Calculated 295 mOsm/kg (285-295); Potassium 4.4 mmol/L (3.5-5.1); Sodium 141 mmol/L (136-145); Total Bilirubin 0.2 mg/dL (0.15-1.2); Total Protein 6.6 g/dL (6.6-8.7)
--- NOTE | 2020-08-26 12:21 | ONC FU_ITS ---
Dr. Raymond Patient Follow-Up Note Patient: Rafat Park Unit #: [id number]: [id number] Dicatated By: Pedro Pablo Raymond M.D.Date of Visit:Aug 22, 2020 Onc Med Follow-up/Prog Note Chief Complaint: Lung cancer. 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 On 04/02/2020 had presented to the emergency room with shortness of breath and chest pain. His CT pulmonary angiogram showed no evidence of pulmonary embolism. However, there were multiple small pleural-based nodules noted in the right lung and there was a bulky mass noted in the middle mediastinum measuring 9.9 x 5.8 x 9.7 cm. Tumor was noted to extend into the right hilum. A pretracheal superior mediastinal mass measured 3.3 x 2.0 x 3.0 cm and an anterior mediastinal tumor nodule measured 2.1 x 1.5 x 1.8 cm. Other anterior, middle, and posterior mediastinal tumor foci were present. There was a small right pleural effusion. Also noted was a right hepatic lobe mass measuring 6.5 x 5.5 x 5.6 cm, thought to be likely metastasis. He was referred to Dr. Bedolla and 04/06/2020 underwent bronchoscopy/EBUS with FNA biopsy of right paratracheal mass. There were no endobronchial lesions identified. The FNA biopsy was positive for small cell carcinoma favoring lung origin. A staging PET/CT 04/17/2020 showed multiple small FDG avid pleural-based lesions in the right lung, a highly FDG avid anterior mediastinal mass with SUV 11.9, highly FDG avid right paratracheal mass with SUV 16.55, and FDG avid hilar lymphadenopathy bilaterally. There was additional FDG avid adenopathy nodes in the upper abdomen and the mass in the right lobe of the liver was also FDG avid with SUV 17.14. There were multiple sites of FDG avid skeletal lesions including the cervical, thoracic, and lumbar spine, pelvis, sternum, and rib cage. I had seen him initially on 04/24/2020. In the setting of extensive stage small cell lung cancer, he was recommended to undergo treatment with carboplatin/etoposide chemotherapy in combination with atezolizumab. His other medical illnesses include COPD, hypertension, hyperlipidemia, and GERD. 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 He has a history of smoking 2 packs of cigarettes daily for 40 years. He quit smoking in 2006. INTERIM HISTORY: He began cycle 1 of carboplatin/etoposide/atezolizumab on 05/02/2020. It was complicated by neutropenia, requiring growth factor support with Neupogen. He continued with cycle 2 on 05/22/2020. He again required Neupogen for treatment of neutropenia, but with both cycles he recovered uneventfully. His restaging chest CT on 06/04/2020 showed significant improvement in the right hilar mass and associated satellite nodules, but with residual mass in the inferior right paratracheal region measuring 3.1 cm. There is moderate decrease in the size of the metastatic lesion in the right lobe of the liver measuring 1.9 x 3.0 cm. Right thyroid nodule measured 2.4 x 2.3 cm. There were minimal anterior compression fractures noted in the thoracic spine with no retropulsion. He then continued with cycle 3 of carboplatin/etoposide/atezolizumab on 06/13/2020. He began cycle 4 on 07/25/2020. It had been delayed due to neutropenia. His restaging chest CT on 08/15/2020 showed residual soft tissue thickening in the right paratracheal region measuring 2.0 x 1.1 cm and with just slight interval improvement. Additional subpleural nodules in the right middle lobe and right lower lobe appeared unchanged. There is no mediastinal or hilar adenopathy. A heterogeneous thyroid nodule with mediastinal extension also appeared stable, and a partially visualized right hepatic lesion also appeared stable. There were multiple chronic appearing compression fractures in the thoracic spine. A mild compression involving the inferior endplate of T7 appeared to be new. He is seen for a follow-up visit. He says he is feeling good, though he still has very limited activity. He describes his energy is 50-50. His ECOG score is 2. He has good appetite. He has no fever or night sweats. He has occasional sinus drainage and he has some chronic cough. He is short of breath with activity. He is on continuous oxygen. He does not complain of chest pain. He has very occasional heartburn. His bowel function remains adequate with laxatives. He has no other GI or complaints. He has some joint pain in his thumbs. He has no other bone pain. He does not complain of headache or dizziness. He has no focal neurologic symptoms. Medications: Acetaminophen 1 Tablet (of 500 mg) Oral daily PRN, Aspirin 1 Tablet Tablet, chewable Oral daily, Lasix (40 mg) Tablet Oral b.i.d., metOLazone 1 Tablet (of 2.5 mg) Oral daily on Every Other Day, Mucinex 1 Tablet Tablet SR 12 HR Oral daily, Omeprazole 1 Capsule (of 20 mg) Capsule Delayed Release Oral daily, Potassium 1 Tablet (of 20 meq) Oral t.i.d., Pravastatin Sodium 1 Tablet (of 20 mg) Oral daily, Spiriva Respimat 1 Puff(s) (of 2.5 mcg/act) Aerosol, solution Inhalation daily PRN, Symbicort 1 Puff(s) (of 160-4.5 mcg/act) Aerosol Inhalation daily PRN, Ventolin HFA 1 Puff(s) (of 108 (90 base) mcg/act) Aerosol, solution Inhalation daily PRN Allergies: No Known Allergies. Vital Signs: Performed on Aug 22, 2020 15:25 Height - 73.00 in Weight - 221 lbs (LOW) BSA - 2.25 sq.m BMI - 29.16 Temperature - 98.3 F (LOW) Pulse - 89 /min Respiration - 22 /min BP - 166/74 mm(hg) (HIGH) O2 Sat - 92 % (LOW) Pain - 0 Fatigue - 4 Physical Examination: Constitutional - He appears chronically ill, Eyes - Sclerae nonicteric. Conjunctivae clear, ENMT - No lesions noted in the oral cavity, Hematologic/Lymphatic - No cervical, clavicular, or axillary adenopathy, Respiratory - Lungs show markedly diminished air movement bilaterally, Cardiovascular - Heart tones are distant. The rhythm appears regular. There is no murmur, gallop, or rub noted, Abdomen - Soft. Liver and spleen are not enlarged. There is no abdominal mass or ascites noted and there is no inguinal adenopathy, Extremities - There is currently no edema, Neurologic - No focal neurologic deficits noted. Lab/Imaging: CBC shows hemoglobin 9.5 g, white blood cell count 5100, and platelet count 251,000. Comprehensive metabolic profile is unremarkable. The TSH is normal at 2.10 ???IU/mL. Problem List: 1. Small cell lung cancer, stage IVB (TX, N3, M1c). Staging PET/CT showed extensive disease including multiple pleural-based metastatic lesions in the right lung and bulky mediastinal lymph node involvement as well as liver and bony metastatic disease. A primary lesion was not clearly identified, but the pattern of metastatic disease suggests that the most likely source was the right lung. 2. He underwent bronchoscopy/EBUS with FNA biopsy of right paratracheal mass on 04/06/2020. 3. COPD. 4. Hypertension. 5. Hyperlipidemia. 6. 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 Problems Addressed with this Encounter and Plan: 1. Small cell lung cancer, stage IVB (TX, N3, M1c), with extensive metastatic involvement by staging PET/CT. He has been undergoing treatment with carboplatin/etoposide chemotherapy in combination with atezolizumab. He has completed 2 cycles of treatment. He appears to be showing a very good response by restaging CT scan. Both cycles of chemotherapy were complicated by neutropenia requiring growth factor support with Neupogen. He also has moderately severe anemia. He has now completed 4 cycles of treatment. Overall he has tolerated it well. He has had significant response by follow-up CT, though with residual disease. As there has been very minimal further improvement since his last CT scan, I am going to go ahead now and transition him to maintenance immunotherapy with atezolizumab. The dosage remains the same. He will return for treatment in 3 weeks and for a follow-up visit in 6 weeks. 2. He has extensive metastatic bone involvement. He is on supportive therapy with denosumab. It will be continued, but with the schedule changes every 6 weeks to coordinate with his treatment schedule. Signed By: Pedro Pablo Raymond M.D. <<Signature on File>>
== END 2020-08-22 23:59 | disposition home or self-care (01) ==
LOC: ONCMED 05:35
PROVIDERS: Internal Medicine Hematology & Oncology; Nurse Practitioner; PCP Internal Medicine; Visit Provider Internal Medicine Medical Oncology
DX: Z51.12 Encounter for antineoplastic immunotherapy (principal); C34.91 Malignant neoplasm of unspecified part of right bronchus or lung; C78.2 Secondary malignant neoplasm of pleura; C77.1 Secondary and unspecified malignant neoplasm of intrathoracic lymph nodes; C78.7 Secondary malignant neoplasm of liver and intrahepatic bile duct; C79.51 Secondary malignant neoplasm of bone; D64.81 Anemia due to antineoplastic chemotherapy; D70.1 Agranulocytosis secondary to cancer chemotherapy; T45.1X5A Adverse effect of antineoplastic and immunosuppressive drugs, initial encounter; K59.09 Other constipation; Z51.81 Encounter for therapeutic drug level monitoring; Z79.899 Other long term (current) drug therapy
CPT/HCPCS: 80053; 83735; 84443; 85025; 96367; 96372; 96375; 96413; 96417; 99214; 99215; J0897; J1100; J1940; J2405; J2469; J2505; J7040; J7050; J9022; J9045; J9181

== ENCOUNTER 2020-09-13 12:30 | Outpatient (RCR) | payer MEDICARE, SELFPAY ==
[2020-08-23] MEDS: sodium chloride 0.9% 250 ML 75 ML IV (10:20)
[2020-08-23] MEDS: denosumab 120 mg SDV SUBCUT (11:30)
--- NOTE | 2020-09-13 10:53 | ONC FU_ITS ---
Chloe Kim Patient Note Patient: Rafat Park Unit #: [id number]: 1940 Dictated By: Fany JiménezDate of Visit: Sep 13, 2020 Onc MED Follow-Up/Prog Note Chief Complaint: Lung cancer. 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 On 04/02/2020 had presented to the emergency room with shortness of breath and chest pain. His CT pulmonary angiogram showed no evidence of pulmonary embolism. However, there were multiple small pleural-based nodules noted in the right lung and there was a bulky mass noted in the middle mediastinum measuring 9.9 x 5.8 x 9.7 cm. Tumor was noted to extend into the right hilum. A pretracheal superior mediastinal mass measured 3.3 x 2.0 x 3.0 cm and an anterior mediastinal tumor nodule measured 2.1 x 1.5 x 1.8 cm. Other anterior, middle, and posterior mediastinal tumor foci were present. There was a small right pleural effusion. Also noted was a right hepatic lobe mass measuring 6.5 x 5.5 x 5.6 cm, thought to be likely metastasis. He was referred to Dr. Bedolla and 04/06/2020 underwent bronchoscopy/EBUS with FNA biopsy of right paratracheal mass. There were no endobronchial lesions identified. The FNA biopsy was positive for small cell carcinoma favoring lung origin. A staging PET/CT 04/17/2020 showed multiple small FDG avid pleural-based lesions in the right lung, a highly FDG avid anterior mediastinal mass with SUV 11.9, highly FDG avid right paratracheal mass with SUV 16.55, and FDG avid hilar lymphadenopathy bilaterally. There was additional FDG avid adenopathy nodes in the upper abdomen and the mass in the right lobe of the liver was also FDG avid with SUV 17.14. There were multiple sites of FDG avid skeletal lesions including the cervical, thoracic, and lumbar spine, pelvis, sternum, and rib cage. Dr Raymond had seen him initially on 04/24/2020. In the setting of extensive stage small cell lung cancer, he was recommended to undergo treatment with carboplatin/etoposide chemotherapy in combination with atezolizumab. His other medical illnesses include COPD, hypertension, hyperlipidemia, and GERD. 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 He has a history of smoking 2 packs of cigarettes daily for 40 years. He quit smoking in 2006. INTERIM HISTORY: He began cycle 1 of carboplatin/etoposide/atezolizumab on 05/02/2020. It was complicated by neutropenia, requiring growth factor support with Neupogen. He continued with cycle 2 on 05/22/2020. He again required Neupogen for treatment of neutropenia, but with both cycles he recovered uneventfully. His restaging chest CT on 06/04/2020 showed significant improvement in the right hilar mass and associated satellite nodules, but with residual mass in the inferior right paratracheal region measuring 3.1 cm. There is moderate decrease in the size of the metastatic lesion in the right lobe of the liver measuring 1.9 x 3.0 cm. Right thyroid nodule measured 2.4 x 2.3 cm. There were minimal anterior compression fractures noted in the thoracic spine with no retropulsion. He then continued with cycle 3 of carboplatin/etoposide/atezolizumab on 06/13/2020. He began cycle 4 on 07/25/2020. It had been delayed due to neutropenia. His restaging chest CT on 08/15/2020 showed residual soft tissue thickening in the right paratracheal region measuring 2.0 x 1.1 cm and with just slight interval improvement. Additional subpleural nodules in the right middle lobe and right lower lobe appeared unchanged. There is no mediastinal or hilar adenopathy. A heterogeneous thyroid nodule with mediastinal extension also appeared stable, and a partially visualized right hepatic lesion also appeared stable. There were multiple chronic appearing compression fractures in the thoracic spine. A mild compression involving the inferior endplate of T7 appeared to be new. Mr. Park is here today for follow-up. He is due for his Tecentriq today. He states he feels good overall. He has become more active around the house. He still has to utilize the walker for stability but is walking a little bit more on his own. He denies any new concerns. He has had no new pain. He denies any fever or chills. He has had some itching on his back but appears to be more dry skin than any adverse reactions. He denies any diarrhea. Is had some constipation but states is controlled with stool softeners. He denies any bladder concerns. He has had no lower extremity edema. He is very jovial. He states he is eating good. He states overall his coughing is better. He has occasional shortness of breath but is not worsening with treatment. His ECOG is 2. 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 wang in 2019 Bronchoscopy/EBUS and FNA biopsy of right paratracheal mass in 2020 Allergies: No Known Allergies. Medications: Acetaminophen 1 Tablet (of 500 mg) Oral daily PRN Aspirin 1 Tablet Tablet, chewable Oral daily Lasix (40 mg) Tablet Oral b.i.d. Magnesium 1 Capsule (of 100 mg) Oral daily metOLazone 1 Tablet (of 2.5 mg) Oral daily on Every Other Day Mucinex 1 Tablet Tablet SR 12 HR Oral daily Omeprazole 1 Capsule (of 20 mg) Capsule Delayed Release Oral daily Potassium 1 Tablet (of 20 meq) Oral four times a day Pravastatin Sodium 1 Tablet (of 20 mg) Oral daily Spiriva Respimat 1 Puff(s) (of 2.5 mcg/act) Aerosol, solution Inhalation daily PRN Symbicort 1 Puff(s) (of 160-4.5 mcg/act) Aerosol Inhalation daily PRN Ventolin HFA 1 Puff(s) (of 108 (90 base) mcg/act) Aerosol, solution Inhalation daily PRN Family History: Mr. Park's mother at age 62: automoblie. Mr. Park's father at age 64: auto mobile. Mr. Park has 1 brother who is alive. Mother and father in a motor vehicle accident, father at age 64 and mother at age 62. A 66-year-old brother has COPD. Social History: Mr. Park is . Mr. Park quit smoking 15 years ago but had smoked 1.0 pack/day for 50 years. He quit drinking less than one year ago. Review Of Symptoms: see above Vital Signs: Performed on Sep 13, 2020 10:06 Height - 73.00 in Weight - 219.4 lbs (LOW) BSA - 2.24 sq.m BMI - 28.95 Temperature - 98.7 F Pulse - 90 /min Respiration - 18 /min BP - 154/87 mm(hg) (HIGH) O2 Sat - 95 % (LOW) Pain - 0,2 - Ambulatory/capable of all self-care, unable to perform any work activities. Up and about more than 50% of waking hours. (ECOG) Physical Examination: Constitutional Alert, oriented, no acute distress. Skin pink, warm and dry. Head Normocephalic; atraumatic. Eyes Conjunctivae and sclerae are clear and without icterus. Pupils are reactive and equal. Neck Supple without masses or thyromegaly. No jugular venous distension. Hematologic/Lymphatic No petechiae or purpura. No tender or palpable lymph nodes in the cervical or supraclavicular areas. Respiratory Lungs are clear to auscultation without rhonchi or wheezing. Cardiovascular Regular rate and rhythm of heart without murmurs,clicks, gallops or rubs. Chest Right PowerPort insertion site is unremarkable. Back/Spine Non-tender to palpation. Extremities No visible deformities, no cyanosis, clubbing or edema. Integumentary No rashes or lesions. Psychiatric Alert and oriented times three. Coherent speech. Verbalizes understanding of our discussions today. Impression: 1. Small cell lung cancer, stage IVB (TX, N3, M1c). Staging PET/CT showed extensive disease including multiple pleural-based metastatic lesions in the right lung and bulky mediastinal lymph node involvement as well as liver and bony metastatic disease. A primary lesion was not clearly identified, but the pattern of metastatic disease suggests that the most likely source was the right lung. 2. He underwent bronchoscopy/EBUS with FNA biopsy of right paratracheal mass on 04/06/2020. 3. COPD. 4. Hypertension. 5. Hyperlipidemia. 6. 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 Plan: 1. Small cell lung cancer, stage IVB (TX, N3, M1c), with extensive metastatic involvement by staging PET/CT. He has been undergoing treatment with carboplatin/etoposide chemotherapy in combination with atezolizumab. He has completed 2 cycles of treatment. He appears to be showing a very good response by restaging CT scan. Both cycles of chemotherapy were complicated by neutropenia requiring growth factor support with Neupogen, but with uneventful recovery. He also has moderately severe anemia, but overall he is tolerating treatment well. With evidence of significant response, he will proceed now with cycle 4 of carboplatin/etoposide/atezolizumab. He has at high risk for adverse effects from his treatment, including chemotherapy related neutropenia and anemia. As such, his chemotherapy dosages have been reduced with cycle 3. A. Proceed with cycle 2 single agent Tecentriq. His last dose of carboplatin etoposide Tecentriq was July 25, 2020. He completed 4 cycles of Carbo/etoposide/Tecentriq at that time. He began single agent Tecentriq on August 23, 2020. B. Labs from August 21, 2020 were reviewed prior to his visit. No additional labs were drawn today. 2. He has extensive metastatic bone involvement. A. He is receiving Xgeva 120 mg with his last dose administered on August 23, 2020. He will be on a 6-week treatment plan to coordinate with his every 3-week immunotherapy. B. He has tolerated it well thus far. 3. . He has chronic constipation. A. He is currently using stool softeners and jglu-wyv-kytschy laxatives and feels that this is working relatively well. 4. Follow-up plan A. He will be seen back in 3 weeks with CBC, CMP, TSH for cycle 3 single agent Tecentriq (atezolizumab) B. Mr. Park and his family were encouraged to contact us in the interim should questions or problems arise. Signed By: Fany Jiménez-, AOCNP Pedro Pablo Raymond MD <<Signature on File>>
--- NOTE | 2020-09-13 13:14 | USCV_ITS ---
Rafat Park Age: 80 Gender: M : 1940 Exam Date: 09/13/2020 14:07 Ordering Phys: Rocio Kim NP Technologist: Linda Ross [place] [facility] [place]ication: PAIN SWELLING HISTORY: PAIN, SWELLING PROCEDURES: Venous duplex imaging was performed in only the right upper extremity. The following venous structures were evaluated: internal jugular vein, subclavian vein, axillary vein, and brachial veins. In addition, the basilic vein, cephalic vein, radial vein, and ulnar vein. Serial compression, augmentation maneuvers, and spectral Doppler flow evaluation were performed. FINDINGS: Normal 2-D, color Doppler and phasicity noted in ther right upper extremity venous system extending from the right internal jugular vein through the main forearm. No thrombosis or occlusion noted. ? appropiate landing site of port. CONCLUSIONS No evidence of thrombus of the right upper extremity veins. Uday Edgar MD (Electronically Signed) Final Date: 13 September 2020 17:05 S
[2020-09-13] MEDS: sodium chloride 0.9% 250 ML 75 ML IV (15:30)
== END 2020-09-21 23:59 | disposition home or self-care (01) ==
LOC: ONCMED 12:30
PROVIDERS: PCP Internal Medicine; Visit Provider Nurse Practitioner
DX: Z51.12 Encounter for antineoplastic immunotherapy (principal); Z51.11 Encounter for antineoplastic chemotherapy; C34.91 Malignant neoplasm of unspecified part of right bronchus or lung; C78.7 Secondary malignant neoplasm of liver and intrahepatic bile duct; C79.51 Secondary malignant neoplasm of bone; J44.9 Chronic obstructive pulmonary disease, unspecified; K21.9 Gastro-esophageal reflux disease without esophagitis; E78.5 Hyperlipidemia, unspecified; I10 Essential (primary) hypertension; H81.03 Meniere's disease, bilateral; M79.601 Pain in right arm; R22.31 Localized swelling, mass and lump, right upper limb; Z79.899 Other long term (current) drug therapy
CPT/HCPCS: 93971; 96372; 96413; 99214; J0897; J7050; J9022

== ENCOUNTER 2020-10-04 05:34 | Outpatient (RCR) | payer MEDICARE, SELFPAY ==
[2020-10-02 09:49] LABS: Basophils % 0.6 %; Eosinophils # 0.2 10^3/uL (0.0-0.8); Eosinophils % 4.6 %; Hematocrit 37.9 % (42.0-52.0); Hemoglobin 11.6 g/dL (11.7-16.6); Lymphocytes % 21.1 %; Mean Corpuscular HGB Conc 30.6 g/dL (30.0-36.0); Mean Corpuscular Hemoglobin 30.4 pg (28.0-34.0); Mean Corpuscular Volume 99.2 fL (80-94); Mean Platelet Volume 9.5 fL (7.4-10.4); Monocytes # 0.5 10^3/uL (0.2-0.9); Monocytes % 9.3 %; Neutrophils # 3.09 10^3/uL (1.8-7.7); Nucleated Red Blood Cells % 0 %; Platelet Count 172 10^3/cmm (130-400); Red Blood Count 3.82 10^6/uL (4.1-5.3); Red Cell Distribution Width 12.6 % (12.1-15.1); White Blood Count 4.8 10^3/uL (4.0-10.0)
[2020-10-02 10:22] LABS: Alanine Aminotransferase 12 U/L (0-41); Albumin Level 3.9 g/dL (3.5-5.2); Alkaline Phosphatase 96 IU/L (40-130); Anion Gap 10.1 (5-19); Aspartate Amino Transferase 19 U/L (0-40); Blood Urea Nitrogen 23 mg/dL (8-23); Calcium 8.3 mg/dL (8.5-10.5); Carbon Dioxide 32 mmol/L (22-29); Chloride 101 mmol/L (98-107); Globulin 3.1 g/dL (1.3-4.6); Glucose 136 mg/dL (65-115); Osmolality Calculated 294 mOsm/kg (285-295); Potassium 4.1 mmol/L (3.5-5.1); Sodium 139 mmol/L (136-145); Thyroid Stimulating Hormone 4.25 uIU/mL (0.27-4.20); Total Bilirubin 0.2 mg/dL (0.15-1.2)
--- NOTE | 2020-10-04 14:44 | IR_ITS ---
WS: [id number] Port injection, 10/04/2020 Clinical Data: VASCULAR DEVICE COMPLICATIONS Comparison: Portable chest, 05/08/2020. Fluoroscopy time: .4 minutes. Findings: Injection of less than 2 mL of contrast into the right port revealed extravasation. The tip of the po rt has retreated and is now either in or next to the right internal jugular vein. Contrast material i s seen along the surface of the port tubing. IR/[place] [id number] Impression: 1. Possible occlusion or dislodgment of the tip of the port from the superior v gregoria cava. 2. Minimal contrast extravasation along the surface of the port tubing.
[2020-10-04 14:59] LABS: Magnesium 2.1 mg/dL (1.7-2.3)
[2020-10-04] MEDS: iohexol 300 mg/mL 50 mL Btl IV (15:17)
[2020-10-04] MEDS: sodium chloride 0.9% 250 ML 75 ML IV (15:25)
[2020-10-04] MEDS: denosumab 120 mg SDV SUBCUT (15:28)
--- NOTE | 2020-10-07 09:36 | ONC FU_ITS ---
Dr. Raymond Patient Follow-Up Note Patient: Rafat Park Unit #: [id number]: 1940 Dicatated By: Pedro Pablo Raymond M.D.Date of Visit:October 04, 2020 Onc Med Follow-up/Prog Note Chief Complaint: Lung cancer. 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 On 04/02/2020 had presented to the emergency room with shortness of breath and chest pain. His CT pulmonary angiogram showed no evidence of pulmonary embolism. However, there were multiple small pleural-based nodules noted in the right lung and there was a bulky mass noted in the middle mediastinum measuring 9.9 x 5.8 x 9.7 cm. Tumor was noted to extend into the right hilum. A pretracheal superior mediastinal mass measured 3.3 x 2.0 x 3.0 cm and an anterior mediastinal tumor nodule measured 2.1 x 1.5 x 1.8 cm. Other anterior, middle, and posterior mediastinal tumor foci were present. There was a small right pleural effusion. Also noted was a right hepatic lobe mass measuring 6.5 x 5.5 x 5.6 cm, thought to be likely metastasis. He was referred to Dr. Bedolla and 04/06/2020 underwent bronchoscopy/EBUS with FNA biopsy of right paratracheal mass. There were no endobronchial lesions identified. The FNA biopsy was positive for small cell carcinoma favoring lung origin. A staging PET/CT 04/17/2020 showed multiple small FDG avid pleural-based lesions in the right lung, a highly FDG avid anterior mediastinal mass with SUV 11.9, highly FDG avid right paratracheal mass with SUV 16.55, and FDG avid hilar lymphadenopathy bilaterally. There was additional FDG avid adenopathy nodes in the upper abdomen and the mass in the right lobe of the liver was also FDG avid with SUV 17.14. There were multiple sites of FDG avid skeletal lesions including the cervical, thoracic, and lumbar spine, pelvis, sternum, and rib cage. I had seen him initially on 04/24/2020. In the setting of extensive stage small cell lung cancer, he was recommended to undergo treatment with carboplatin/etoposide chemotherapy in combination with atezolizumab. His other medical illnesses include COPD, hypertension, hyperlipidemia, and GERD. 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 He has a history of smoking 2 packs of cigarettes daily for 40 years. He quit smoking in 2006. INTERIM HISTORY: He began cycle 1 of carboplatin/etoposide/atezolizumab on 05/02/2020. It was complicated by neutropenia, requiring growth factor support with Neupogen. He continued with cycle 2 on 05/22/2020. He again required Neupogen for treatment of neutropenia, but with both cycles he recovered uneventfully. His restaging chest CT on 06/04/2020 showed significant improvement in the right hilar mass and associated satellite nodules, but with residual mass in the inferior right paratracheal region measuring 3.1 cm. There is moderate decrease in the size of the metastatic lesion in the right lobe of the liver measuring 1.9 x 3.0 cm. Right thyroid nodule measured 2.4 x 2.3 cm. There were minimal anterior compression fractures noted in the thoracic spine with no retropulsion. He then continued with cycle 3 of carboplatin/etoposide/atezolizumab on 06/13/2020. He began cycle 4 on 07/25/2020. It had been delayed due to neutropenia. His restaging chest CT on 08/15/2020 showed residual soft tissue thickening in the right paratracheal region measuring 2.0 x 1.1 cm and with just slight interval improvement. Additional subpleural nodules in the right middle lobe and right lower lobe appeared unchanged. There was no mediastinal or hilar adenopathy. A heterogeneous thyroid nodule with mediastinal extension also appeared stable, and a partially visualized right hepatic lesion also appeared stable. There were multiple chronic appearing compression fractures in the thoracic spine. A mild compression involving the inferior endplate of T7 appeared to be new. With those findings, he was recommended to continue maintenance immunotherapy with atezolizumab administered at 3-week intervals. He began cycle 1 on 08/23/2020. He is seen for a follow-up visit. His energy is somewhat variable. He still has limited activity. ECOG score is 2. His appetite comes and goes. He does not have fever or night sweats. His breathing has been a little worse lately. He is on continuous oxygen. He has cough, but that is chronic. He has some pain in the right chest, in the area of his Port-A-Cath. He also has some discomfort associated with hiatal hernia. He has no other GI or complaints. He has some joint pain, mainly in the thumbs and fingers. He does not complain of headache. He does feel wobbly, though. He has no numbness/paresthesia or other focal neurologic symptoms. Medications: Acetaminophen 1 Tablet (of 500 mg) Oral daily PRN, Aspirin 1 Tablet Tablet, chewable Oral daily, Lasix (40 mg) Tablet Oral b.i.d., Magnesium 1 Capsule (of 100 mg) Oral daily, metOLazone 1 Tablet (of 2.5 mg) Oral daily on Every Other Day, Mucinex 1 Tablet Tablet SR 12 HR Oral daily, Omeprazole 1 Capsule (of 20 mg) Capsule Delayed Release Oral daily, Potassium 1 Tablet (of 20 meq) Oral b.i.d., Pravastatin Sodium 1 Tablet (of 20 mg) Oral daily, Spiriva Respimat 1 Puff(s) (of 2.5 mcg/act) Aerosol, solution Inhalation daily PRN, Symbicort 1 Puff(s) (of 160-4.5 mcg/act) Aerosol Inhalation daily PRN, Ventolin HFA 1 Puff(s) (of 108 (90 base) mcg/act) Aerosol, solution Inhalation daily PRN Allergies: No Known Allergies. Vital Signs: Performed on October 04, 2020 16:05 Height - 73.00 in Temperature - 98.3 F (LOW) Pulse - 111 /min (HIGH) Respiration - 20 /min BP - 123/93 mm(hg) O2 Sat - 95 % (LOW) Performed on October 04, 2020 13:55 Height - 73.00 in Weight - 211.2 lbs (LOW) BSA - 2.20 sq.m BMI - 27.86 Temperature - 99.2 F (HIGH) Pulse - 93 /min Respiration - 20 /min BP - 125/69 mm(hg) O2 Sat - 94 % (LOW) Pain - 0 Fatigue - 0 Physical Examination: Constitutional - He appears generally weak, Eyes - Sclerae nonicteric. Conjunctivae clear, ENMT - No lesions noted in the oral cavity, Hematologic/Lymphatic - No cervical, clavicular, or axillary adenopathy, Respiratory - Lungs show markedly diminished air movement bilaterally, Cardiovascular - Heart rhythm appears regular with a mild tachycardia. There is no murmur, gallop, or rub noted, Abdomen - Soft. Liver and spleen are not enlarged. There is no abdominal mass or ascites noted and there is no inguinal adenopathy, Extremities - No edema. Dorsalis pedis pulses are palpable bilaterally, Neurologic - No focal neurologic deficits noted. Lab/Imaging: CBC shows hemoglobin 11.6 g, white blood cell count 4800, and platelet count 172,000. Comprehensive metabolic profile is unremarkable. TSH level is mildly elevated 4.25 ???IU/mL. Problem List: 1. Small cell lung cancer, stage IVB (TX, N3, M1c). Staging PET/CT showed extensive disease including multiple pleural-based metastatic lesions in the right lung and bulky mediastinal lymph node involvement as well as liver and bony metastatic disease. A primary lesion was not clearly identified, but the pattern of metastatic disease was suggestive of a primary source in the right lung. 2. He underwent bronchoscopy/EBUS with FNA biopsy of right paratracheal mass on 04/06/2020. 3. COPD. 4. Hypertension. 5. Hyperlipidemia. 6. 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 Problems Addressed with this Encounter and Plan: 1. 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 He began initial treatment with carboplatin/etoposide chemotherapy in combination with atezolizumab. He appeared to have a very good response by restaging CT scan after 2 cycles of treatment, though both cycles were complicated by neutropenia requiring growth factor support with Neupogen. He also had moderately severe anemia. There was evidence of continued response on his repeat CT scans after 4 cycles, though with very minimal further improvement compared to the CT after 2 cycles. With those findings he was recommended to continue with maintenance immunotherapy with atezolizumab administered at 3-week intervals. Thus far he has tolerated treatment with acceptable toxicity. His overall clinical status remains stable, though he continues to have very limited activity tolerance and overall very marginal performance status. He will proceed with cycle 3 of maintenance atezolizumab. The dosage remains the same. He will be scheduled to return for treatment in 3 weeks and for a follow-up visit in 6 weeks. In the meantime, I also will schedule him for surveillance head CT. He will have restaging CT scans of the chest, abdomen, and pelvis with his next visit. 2. He has extensive metastatic bone involvement. He is on supportive therapy with denosumab. It will be continued at 6-week intervals to coordinate with his treatment schedule. 3. He has developed mild hypothyroidism. This is most likely treatment related. He will start replacement therapy with levothyroxine. He will have ongoing monitoring of his thyroid function. Signed By: Pedro Pablo Raymond M.D. <<Signature on File>>
== END 2020-10-22 23:59 | disposition home or self-care (01) ==
LOC: ONCMED 05:34
PROVIDERS: Nurse Practitioner; PCP Internal Medicine; Visit Provider Internal Medicine Medical Oncology
DX: Z51.12 Encounter for antineoplastic immunotherapy (principal); Z51.11 Encounter for antineoplastic chemotherapy; C34.91 Malignant neoplasm of unspecified part of right bronchus or lung; C79.51 Secondary malignant neoplasm of bone; C78.7 Secondary malignant neoplasm of liver and intrahepatic bile duct; J44.9 Chronic obstructive pulmonary disease, unspecified; I10 Essential (primary) hypertension; E78.5 Hyperlipidemia, unspecified; H81.09 Meniere's disease, unspecified ear; Z79.899 Other long term (current) drug therapy
CPT/HCPCS: 36598; 80053; 83735; 84443; 85025; 96372; 96413; 99215; J0897; J7050; J9022; Q9967

== ENCOUNTER 2020-10-25 06:22 | Outpatient (CLI) | payer MEDICARE, SELFPAY ==
--- NOTE | 2020-10-25 08:18 | CT_ITS ---
WS: [id number] CT HEAD WITH AND WITHOUT CONTRAST HISTORY: LUNG CANCER, NUMBNESS AND TINGLING IN LEGS TECHNIQUE: Noncontrast 2.5 mm axial images obtained from the vertex to the skull base. Additional nella ging performed at 2.5 mm axial images status post IV contrast. Bone and soft tissue windows are revie wed. All CT scans at [facility] use at least one of these dose optimization techniques: a utomated exposure control; mA and/or kV adjustment per patient size (includes targeted exams where do se is matched to clinical indication); or iterative reconstruction. CONTRAST: Omnipaque 300; 95 mL IV. DLP: 1984.08 mGycm COMPARISON: None available. On the noncontrast CT there is a hyperdense nodule in the anterior LEFT parietal lobe towards the steve susan. This area of mild increased density measures 12.9 mm. On the postcontrast imaging there does jerry ear to be slight peripheral enhancement. There is an additional hyperdense nodule which is very diffi cult to visualize along the parafalcine LEFT frontal cortex measuring 7 mm with mild enhancement. No surrounding edema. Area of decreased attenuation with mild peripheral enhancement in the medial RIGHT temporal lobe measures 10 mm suspicious for metastatic site. There is an additional mixed density 10 mm enhancing nodule in the subcortical RIGHT frontal lobe white matter. No significant mass effect. Bilateral small lacunar infarcts in the basal ganglia. Mild chronic microvascular ischemic disease. N o intraventricular hemorrhage. No aneurysm. Paranasal sinuses as visualized: Clear. Mastoid air cells: Clear. Calvarium and scalp: Craniectomy defect RIGHT occipital lobe. No destructive skull lesions. CT/CT head wo/w con [id number] IMPRESSION: Although very minimal enhancement there are several lesions within the brain hi ghly suspicious for metastatic sites. The largest measures 12.9 mm in the LEFT parietal lobe towards the vertex. Smaller additional lesions in the frontal lob es bilaterally and RIGHT temporal lobe. No mass effect or midline shift. Consid er MRI evaluation with contrast.
[2020-10-25] MEDS: iohexol 300 mg/mL 100 mL Btl IV (09:17)
[2020-10-25] MEDS: sodium chloride 0.9% 250 ML 75 ML IV (10:50)
== END 2020-10-25 06:23 | disposition home or self-care (01) ==
LOC: ONCMED 06:24
PROVIDERS: PCP Internal Medicine; Visit Provider Internal Medicine Hematology & Oncology
DX: Z51.12 Encounter for antineoplastic immunotherapy (principal); C34.91 Malignant neoplasm of unspecified part of right bronchus or lung; C78.7 Secondary malignant neoplasm of liver and intrahepatic bile duct; C79.51 Secondary malignant neoplasm of bone; Z79.899 Other long term (current) drug therapy
CPT/HCPCS: 70470; 96413; J7050; J9022; Q9967

== ENCOUNTER 2020-11-02 12:45 | Emergency (ER) | payer MEDICARE, SELFPAY ==
[2020-11-02 13:05] VITALS: BP 100/59; PULSE 85; RESP 18; TEMP 37.4; O2SAT 92; BMI 27.8
[2020-11-02 14:24] LABS: Bilirubin Urine 1+ (Negative); Blood Urine Neg (Negative); Glucose Urine UA Norm (Normal); Ketones Urine Negative (Negative); Leukocyte Esterase Urine Negative (Negative); Nitrate Urine Negative (Negative); Protein Urine Neg (Negative); Urine Color Dark Yellow (Yellow); Urobilinogen Urine 1 mg/dL (Negative); pH Urine 5 (5-7)
[2020-11-02 14:25] LABS: Bacteria Urine TRACE /hpf; Mucus Urine 1+ /hpf; RBC Urine 0-4 /hpf (0-2); Squamous Epithelial Cell Urine 0-4 /hpf (0-5); Urine Appearance SL Hazy (CLEAR); WBC Urine 0-4 /hpf (0-5)
[2020-11-02 14:26] LABS: Add Urine Culture? No
[2020-11-02 15:01] VITALS: BP 135/85; PULSE 91; RESP 18; O2SAT 95
--- NOTE | 2020-11-02 16:42 | ED_ITS ---
HPI - Male Genitourinary General: Chief complaint: Urogenital-Male Stated complaint: UNABLE TO URINATE/SENT BY DR ARAGON Time Seen by Provider: 11/02/20 13:53 History of Present Illness: HPI Narrative: The patient is a 80-year-old male with past medical history metastatic lung cancer who comes to the ER because of difficulty voiding since yesterday. He says he has not urinated today and he was sent here by Dr. Aragon for Mercedes catheter placement. He offers no other complaints in the ER besides suprapubic fullness and sensation like he needs to urinate. He denies any other complaints in the ED today. And says he feels very well. Review of Systems General: Reports: 10 or more systems reviewed and unremarkable except in HPI and below Const: Denies: fatigue Eyes: Denies: change in vision, blurry vision or eye redness ENMT: Denies: throat pain, swelling of lips/tongue, ear or mastoid pain or nasal congestion Card: Denies: chest pain, palpitations, irregular heart rhythm, edema, dyspnea on exertion or orthopnea Resp: Denies: dyspnea, productive cough or non-productive cough GI: Denies: abdominal pain, diarrhea or GI cramping : Denies: flank pain, urinary frequency or urinary urgency Musc: Denies: neck pain, back pain, extremity pain, joint pain, joint redness, limited range of motion or muscle weakness Skin/Breast: Denies: rash, pruritus, erythema, skin pain or skin tenderness Neuro: Denies: headache(s), numbness in extremities, weakness in extremities, sensory changes, difficulty walking, dizziness, confusion or Slurred speech present Psych: Denies: anxiety or depression Endo: Denies: polyuria All/Imm: Denies: urticaria, throat swelling or tongue swelling PFS ED PFSH: Medical History Asthma COPD (chronic obstructive pulmonary disease) GERD (gastroesophageal reflux disease) HTN (hypertension) Hyperlipidemia Meniere disease Surgical History History of appendectomy Family History Brother Cancer Other Diabetes Denies family history of CAD (coronary artery disease) Anesthesia complication Bleeding disorder Social History Smoking and tobacco status: former smoker Quit status (tobacco): has quit using tobacco Year quit tobacco: 2006 - Hx of 2PPD x 50 Alcohol intake: never Lives independently: Yes Household members: spouse Marital status: Current occupational status: retired History of recent travel: No Current gender identity: Male Physical Exam Const: COMMON NORMALS: no acute distress, average body habitus, patient oriented x3, no limitations, healthy appearing, alert and well nourished GENERAL APPEARANCE: cooperative, comfortable, well kempt and well developed ORIENTATION/CONSCIOUSNESS: Yes awake, Yes oriented to person, Yes oriented to place and Yes oriented to time HENMT: COMMON NORMALS: normocephalic, external ears normal and Normal external nose present HEAD & SCALP: normal to inspection and normocephalic NOSE: Normal external nose present EXTERNAL EAR: Yes external ears normal MOUTH: Normal oral and palatal mucosa present THROAT: posterior oropharynx normal Eye: COMMON NORMALS: Equal, round and reactive pupils present and EOMs intact bilaterally GENERAL EYE: appearance normal, both eyes and all related structures PUPIL: Yes Equal, round and reactive pupils present Neck/C-Spine: COMMON NORMALS: full ROM, no lymphadenopathy, no meningeal signs and no JVD GENERAL: Yes normal visual inspection Lymph: LYMPHATIC: no lymphadenopathy noted Chest: COMMONS NORMALS: normal inspection of the chest and normal palpation of entire chest wall Resp: COMMON NORMALS: normal respiratory effort, No retractions, No use of accessory muscles, clear to auscultation bilaterally and percussion normal EFFORT & INSPECTION: Yes able to speak in complete sentences AUSCULTATION: clear to auscultation bilaterally PERCUSSION: percussion normal Cardio: COMMON NORMALS: no JVD, regular rate, regular rhythm, S1 normal heart sound present, S2 normal heart sound present and Peripheral pulses 2+ throughout RATE: regular rate RHYTHM: regular rhythm HEART SOUNDS: S1 normal heart sound present and S2 normal heart sound present PERIPHERAL PULSES: Peripheral pulses 2+ throughout GI: COMMON NORMALS: Normal to inspection, nondistended, normoactive bowel sounds present, Soft to palpation, non-tender and no masses INSPECTION: Yes normal to inspection PALPATION: Yes Soft to palpation : COMMON NORMALS: Yes no CVA tenderness BLADDER/KIDNEY EXAM: Yes no CVA tenderness OTHER: Mild suprapubic discomfort with palpation likely from urinary retention Back/Pelvis: COMMON NORMALS: no CVA tenderness, thoracic and lumbar spine normal to inspection, no thoracic nor lumbar tenderness and thoraco-lumbar ROM normal Extremity: COMMON NORMALS: normal to inspection, full ROM, capillary refill normal, no joint enlargement and no pedal edema GENERAL: Yes normal exam except as noted Neuro: COMMON NORMALS: patient oriented x3, CN's II-XII intact bilaterally, moves all extremities, no focal motor deficits, no sensory deficits noted and gait normal SENSORIUM/ORIENTATION: Yes alert, Yes oriented to person, Yes oriented to place and Yes oriented to time MENINGEAL SIGNS: Yes no meningeal signs Psych: COMMON NORMALS: mental status grossly normal, Normal thought process present, cooperative, normal affect and speech normal APPEARANCE: Yes well kempt ATTITUDE: Yes calm SPEECH: Yes normal speech THOUGHT PROCESS: No rmal thought process present Skin: COMMON NORMALS: no rashes or lesions noted GENERAL SKIN EXAM: no rashes or lesions noted Course Vital Signs: Vital signs: Vital Signs Temperature 99.4 F 11/02/20 13:05 Pulse Rate 91 11/02/20 15:01 Respiratory Rate 18 11/02/20 15:01 Blood Pressure 135/85 11/02/20 15:01 Pulse Oximetry 95 11/02/20 15:01 MDM - Male MDM Narrative: Medical decision making narrative: Mercedes catheter inserted with ease and drained a significant amount of urine. His symptoms resolved. Recommended leaving in the Mercedes catheter for 1 to 2 weeks before taking out to give himself some bladder rest. Recommended he see his primary care physician in a week to discuss further. Also continue to follow-up with his oncologist as regularly scheduled. ER with worsening symptoms at any time. I also discussed the signs and symptoms of UTI which she is not very familiar with and will return with any of those symptoms Lab Data: Labs: Lab Results 11/02/20 Range/Units 14:09 Urine Color Dark yellow (Yellow) Urine Appearance Sl hazy (CLEAR) Urine pH 5 (5-7) Ur Specific Gravit y 1.020 (1.005-1.030) Urine Protein Neg (Negative) Urine Glucose (UA) Norm (Normal) Urine Ketones Negative (Negative) Urine Blood Neg (Negative) Urine Nitrate Negative (Negative) Urine Bilirubin 1+ H (Negative) Urine Urobilinogen 1 H (Negative) mg/dL Ur Leukocyte Enma ase Negative (Negative) Urine RBC 0-4 H (0-2) /hpf Urine WBC 0-4 H (0-5) /hpf Ur Squamous Epith Cells 0-4 H (0-5) /hpf Amorphous Sediment Not Reportable Urine Bacteria Trace (NONE) /hpf Urine Mucus 1+ /hpf Discharge Plan Discharge Patient Disposition: Home Clinical Impression: Acute retention of urine Condition: Stable Prescriptions: No Action furosemide [Lasix] 20 mg tablet 20 mg PO BID RF: 0 metolazone 2.5 mg tablet 2.5 mg PO .COMPLEX 90 Days Qty: 45 RF: 0 potassium chloride 20 mEq tablet,ER particles/crystals 20 meq PO BID RF: 0 oxycodone 5 mg tablet 10 mg PO Q6H PRN (Reason: Pain) RF: 0 acetaminophen [Tylenol Extra Strength] 500 mg tablet 1,000 mg PO Q6H PRN (Reason: Pain) RF: 0 Spiriva Respimat 2.5 mcg/actuation mist See Rx Instructions .ROUTE .COMPLEX Qty: 12 RF: 3 ipratropium-albuterol 0.5 mg-3 mg(2.5 mg base)/3 mL solution for nebulization See Rx Instructions .ROUTE .COMPLEX PRN (Reason: cough/shortness of breath) RF: 0 omeprazole 20 mg Capsule,Delayed Release(Dr/Ec) 20 mg PO DAILY RF: 0 aspirin 81 mg Tablet 81 mg PO DAILY RF: 0 Hold Instructions: Resume on 05/12/20. pravastatin 20 mg tablet 20 mg PO DAILY RF: 0 albuterol sulfate 90 mcg/actuation HFA aerosol inhaler 2 puff inhalation Q4H PRN (Reason: Shortness Of Breath) RF: 0 budesonide-formoterol [Symbicort] 160-4.5 mcg/actuation HFA aerosol inhaler 2 puff INHALATION BID RF: 0 Mucinex 1,200 mg Tablet Extended Release 12hr 1,200 mg PO DAILY RF: 0 Discharge Orders: Discharge ED (Routine); Ordered 11/02/20 Ordered By: Diaz Montanez Referrals: Pedro Pablo Rasheed DO [Primary Care Provider] - Patient Instructions: Urinary Retention in Men (ED), Opioid Safety Activity Restrictions/Additional Instructions: You have had an episode of urinary retention. Please continue to wear the Mercedes catheter and discuss with your primary care physician in a week or so whether or not it should be taken out. Return to the ER at anytime with worsening symptoms. Watch for signs of infection such as fever, cramping with above your pubic bone, the feeling like you need to urinate constantly. Return to the ER at any time for evaluation if you have any questions. Coding Level of Care Code ED Sifting Operator for Blanca Snell
[2020-11-02 17:38] VITALS: TEMP 36.6
--- NOTE | 2020-11-05 10:20 | DCPLANNER ---
manager medical affairs had message to schedule a follow up appointment for patient with Dr. Gay and primary care. manager medical affairs spoke with patient, and asked if patient if he would like wrapper caser to schedule appointment with primary care. manager medical affairs called the office of Dr. Gay, spoke with Elise, gave clinic patients information. manager medical affairs was told that patients information would be printed and reviewed. Clinic will call patient with appointment information. manager medical affairs called [facility], where patients primary care physician, Dr. Rasheed is. A follow up appointment was scheduled for Thursday, November 19, 2020 at 11:[address] Rasheed. manager medical affairs called patient and gave patient the appointment information.
--- NOTE | 2020-11-06 13:30 | DCPLANNER ---
Patient has a follow up appointment scheduled for , November 15, [address] at 3:[address] Gay. Clinic will call patient with appointment information.
--- NOTE | 2020-12-20 07:31 | DCPLANNER ---
Patient had a follow up appointment scheduled with Dr. Gay - patient did not attend the appointment.
== END 2020-11-02 18:06 | disposition home or self-care (01) ==
PROVIDERS: Emergency Provider Family Medicine; PCP Internal Medicine
DX: R33.9 Retention of urine, unspecified (principal); Z79.82 Long term (current) use of aspirin; J44.9 Chronic obstructive pulmonary disease, unspecified; I10 Essential (primary) hypertension; E78.5 Hyperlipidemia, unspecified; Z87.891 Personal history of nicotine dependence
CPT/HCPCS: 51702; 81001; 99283

== ENCOUNTER 2020-11-06 06:40 | Observation (INO) | payer MEDICARE, SELFPAY ==
[2020-11-06] VITALS (9 sets, daily range): BP systolic 123–160; BP diastolic 69–95; PULSE 71–130; RESP 16–22; TEMP 36.6–37.1; O2SAT 95–98; BMI 27.7
--- NOTE | 2020-11-06 07:02 | W.ED.WEAKNES ---
HPI - Weakness General: Chief complaint: Weakness Stated complaint: Weakness Time Seen by Provider: 11/06/20 06:44 History of Present Illness: HPI Narrative: 80-year-old male presents emergency room at the direction of Dr. Raymond. 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 He was seen 4 days ago with acute urinary retention patient was given a Mercedes and discharged home. Today comes in complaining of weakness previously of breath onThe left side now he is complaining of weakness on the right he is complaining of difficulty with ambulation and ability to walk significant dizziness. He denies any difficulty with vision no change in speech. He is chronically on 2 L nasal cannula that has not changed. No nausea or vomiting denies headache. MD Complaint: focal weakness and difficulty walking Onset (ago): day(s) Duration: constant Location: RUE and RLE Severity: moderate Quality: tingling and numbness Relieving factors: none Exacerbating factors: none Context: history of similar (Previously left-sided weakness) Associated symptoms: Denies chest pain, chills, confusion, melena, decreased appetite, diaphoresis, dysuria, easy bruising, fever(s), headache(s), myalgias, nausea, rash, short of breath, syncope or vomiting Review of Systems Const: Denies: fever(s), chills or diaphoresis ENMT: Denies: throat pain, ear or mastoid pain, nasal discharge or nasal congestion Card: Denies: chest pain or syncope Resp: Denies: dyspnea, productive cough or non-productive cough GI: Denies: nausea, vomiting or melena : Denies: dysuria Skin/Breast: Denies: rash or pruritus Neuro: Denies: headache(s) or confusion Eder/Lymph: Denies: easy bruising PFS ED PFSH: Medical History Asthma COPD (chronic obstructive pulmonary disease) GERD (gastroesophageal reflux disease) HTN (hypertension) Hyperlipidemia Meniere disease Small cell lung cancer Surgical History H/O brain surgery H/O colonoscopy H/O detached retina repair History of appendectomy Hx of cataract surgery Family History Brother Cancer Other Diabetes Denies family history of CAD (coronary artery disease) Anesthesia complication Bleeding disorder Social History Smoking and tobacco status: former smoker Quit status (tobacco): has quit using tobacco Year quit tobacco: 2006 - Hx of 2PPD x 50 Alcohol intake: never Lives independently: Yes Household members: spouse Marital status: Current occupational status: retired History of recent travel: No Current gender identity: Male Physical Exam Const: COMMON NORMALS: no acute distress GENERAL APPEARANCE: cooperative and comfortable ORIENTATION/CONSCIOUSNESS: Yes awake, Yes oriented to person, Yes oriented to place and Yes oriented to time HENMT: COMMON NORMALS: normocephalic, atraumatic and external ears normal HEAD & SCALP: normocephalic and atraumatic EXTERNAL EAR: Yes external ears normal Neck/C-Spine: COMMON NORMALS: no JVD Resp: COMMON NORMALS: normal respiratory effort, No retractions, No use of accessory muscles and clear to auscultation bilaterally AUSCULTATION: clear to auscultation bilaterally Cardio: COMMON NORMALS: no JVD, regular rate, regular rhythm and No murmurs present (Cardio) RATE: regular rate RHYTHM: regular rhythm GI: COMMON NORMALS: Soft to palpation and No hepatosplenomegaly present AUSCULTATION: Yes normoactive bowel sounds PALPATION: Yes Soft to palpation, No Tenderness to palpation present (GI), No Guarding due to palpation present (GI) and Yes No hepatosplenomegaly present Extremity: COMMON NORMALS: normal to inspection, capillary refill normal, no clubbing, cyanosis or edema, no calf tenderness and no pedal edema Neuro: SENSORIUM/ORIENTATION: Yes oriented to person, Yes oriented to place and Yes oriented to time Skin: COMMON NORMALS: no rashes or lesions noted GENERAL SKIN EXAM: no rashes or lesions noted Course Vital Signs: Vital signs: Vital Signs Temperature 98.2 F 11/08/20 04:00 Pulse Rate 72 11/08/20 04:00 Respiratory Rate 18 11/08/20 04:00 Blood Pressure 133/72 11/08/20 04:00 Pulse Oximetry 97 11/08/20 04:00 MDM - Weakness MDM Narrative: Medical decision making narrative: CT shows new metastatic lesions in the lumbar spine and pelvis. MRI does not show any evidence of cauda equina although imaging is a little bit limited in the thoracic spine there is nothing significant on the CT. We will go ahead and admit the patient for pain control and started on steroids discussed with Dr. Almanza as well as with Dr. Raymond. Patient does have a new compression fracture there is no retropulsion of any fragments at that level. Lab Data: Labs: Lab Results 11/06/20 11/06/20 11/06/20 Range/Units 06:45 06:45 06:45 WBC 7.5 (4.0-10.0) 10^3/ uL RBC 4.27 (4.1-5.3) 10^6/u L Hgb 12.5 (11.7-16.6) g/dL Hct 39.5 L (42.0-52.0) % MCV 92.5 (80-94) fL MCH 29.3 (28.0-34.0) pg MCHC 31.6 (30.0-36.0) g/dL RDW 13.3 (12.1-15.1) % Plt Count 251 (130-400) 10^3/c mm MPV 9.5 (7.4-10.4) fL Neut % (Auto) 66.5 % Lymph % (Auto) 19.7 % [place] % (Auto) 10.0 % Eos % (Auto) 2.7 % Baso % (Auto) 0.7 % Neut # (Auto) 5.00 (1.8-7.7) 10^3/u L Lymph # (Auto) 1.5 (0.8-4.8) 10^3/u L [place] # (Auto) 0.8 (0.2-0.9) 10^3/u L Eos # (Auto) 0.2 (0.0-0.8) 10^3/u L Baso # (Auto) 0.1 (0.0-0.1) 10^3/u L Nucleated RBC % (a uto) 0 % Nucleated RBCs # 0.0 /100WBC Sodium 138 (136-145) mmol/L Potassium 4.2 (3.5-5.1) mmol/L Chloride 97 L (98-107) mmol/L Carbon Dioxide 29 (22-29) mmol/L Anion Gap 16.2 (5-19) BUN 17 (8-23) mg/dL Creatinine 0.7 (0.7-1.2) mg/dL GFR Calculation Not Reportable Glucose 104 (65-115) mg/dL Calculated Osmolal ity 288 (285-295) mOsm/k g Calcium 8.2 L (8.5-10.5) mg/dL Magnesium 1.9 (1.7-2.3) mg/dL Total Bilirubin 0.4 (0.15-1.2) mg/dL AST 22 (0-40) U/L ALT 11 (0-41) U/L Alkaline Phosphata se 118 (40-130) IU/L Creatine Kinase 78 (39-308) U/L Total Protein 7.7 (6.6-8.7) g/dL Albumin 4.2 (3.5-5.2) g/dL Globulin 3.5 (1.3-4.6) g/dL TSH (0.27-4.20) uIU/ mL 11/06/20 Range/Units 06:45 WBC (4.0-10.0) 10^3/ uL RBC (4.1-5.3) 10^6/u L Hgb (11.7-16.6) g/dL Hct (42.0-52.0) % MCV (80-94) fL MCH (28.0-34.0) pg MCHC (30.0-36.0) g/dL RDW (12.1-15.1) % Plt Count (130-400) 10^3/c mm MPV (7.4-10.4) fL Neut % (Auto) % Lymph % (Auto) % [place] % (Auto) % Eos % (Auto) % Baso % (Auto) % Neut # (Auto) (1.8-7.7) 10^3/u L Lymph # (Auto) (0.8-4.8) 10^3/u L [place] # (Auto) (0.2-0.9) 10^3/u L Eos # (Auto) (0.0-0.8) 10^3/u L Baso # (Auto) (0.0-0.1) 10^3/u L Nucleated RBC % (a uto) % Nucleated RBCs # /100WBC Sodium (136-145) mmol/L Potassium (3.5-5.1) mmol/L Chloride (98-107) mmol/L Carbon Dioxide (22-29) mmol/L Anion Gap (5-19) BUN (8-23) mg/dL Creatinine (0.7-1.2) mg/dL GFR Calculation Glucose (65-115) mg/dL Calculated Osmolal ity (285-295) mOsm/k g Calcium (8.5-10.5) mg/dL Magnesium (1.7-2.3) mg/dL Total Bilirubin (0.15-1.2) mg/dL AST (0-40) U/L ALT (0-41) U/L Alkaline Phosphata se (40-130) IU/L Creatine Kinase (39-308) U/L Total Protein (6.6-8.7) g/dL Albumin (3.5-5.2) g/dL Globulin (1.3-4.6) g/dL TSH 7.21 H (0.27-4.20) uIU/ mL Discharge Plan Discharge Patient Disposition: Admitted As Inpatient Admit Provider: Santy Stephens Clinical Impression: Back pain, Acute retention of urine, COPD (chronic obstructive pulmonary disease), Small cell lung cancer, HTN (hypertension) Condition: Stable Coding Level of Care Code ED Glass Pulverizer Equipment Operator for Brenneng Fwd Exam Comprehensive
--- NOTE | 2020-11-06 07:08 | CTR_ITS ---
PROCEDURE INFORMATION: Exam: CT Head Without And With Contrast Exam date and time: 11/06/2020 7:08 AM Age: 80 years old Clinical indication: Walking, difficulty and weakness, extremity; Bilateral; Prior surgery; Surgery date: 6+ months; Surgery type: Port; Patient HX: Increased weakness; Additional info: Lung CA w mets, gait disturbance TECHNIQUE: Imaging protocol: Computed tomography of the head without and with intravenous contrast. Radiation optimization: All CT scans at this facility use at least one of these dose optimization techniques: automated exposure control; mA and/or kV adjustment per patient size (includes targeted exams where dose is matched to clinical indication); or iterative reconstruction. Contrast material: OMNI 300; Contrast volume: 95 ml; Contrast route: INTRAVENOUS (IV); COMPARISON: CT head wo/w con [id number] 10/25/2020 9:03 AM RADIATION DOSE METRICS: Total DLP (mGy-cm): 1434.87 FINDINGS: Brain: Again noted are multiple bilateral enhancing metastatic nodules in the brain. They have not significantly changed since the previous examination from 10/25/2020. The largest one is again seen in the left parietal lobe and again measures approximately 12.9 mm in diameter. There is no significant mass effect or midline shift. No intracranial hemorrhage is seen. There is generalized chronic atrophy with prominence of the ventricles and sulci. Cerebral ventricles: The ventricles are prominent consistent with chronic atrophy. Paranasal sinuses: Visualized sinuses are unremarkable. No fluid levels. Mastoid air cells: Visualized mastoid air cells are well aerated. Bones/joints: There is old right occipital craniotomy. Soft tissues: Unremarkable. CT/CT head wo/w con [id number] IMPRESSION: There has been no significant change in the appearance of the brain. Multiple bilateral metastatic lesions have not significantly changed since previous examination. Radiation Dose CTDIVOL = (mGy): DLP = 1434.87 (mGy-cm)
[2020-11-06 07:19] LABS: Basophils # 0.1 10^3/uL (0.0-0.1); Basophils % 0.7 %; Eosinophils # 0.2 10^3/uL (0.0-0.8); Eosinophils % 2.7 %; Hematocrit 39.5 % (42.0-52.0); Hemoglobin 12.5 g/dL (11.7-16.6); Lymphocytes # 1.5 10^3/uL (0.8-4.8); Lymphocytes % 19.7 %; Mean Corpuscular HGB Conc 31.6 g/dL (30.0-36.0); Mean Corpuscular Hemoglobin 29.3 pg (28.0-34.0); Mean Corpuscular Volume 92.5 fL (80-94); Mean Platelet Volume 9.5 fL (7.4-10.4); Monocytes # 0.8 10^3/uL (0.2-0.9); Neutrophils % 66.5 %; Nucleated Red Blood Cells % 0 %; Platelet Count 251 10^3/cmm (130-400); Red Blood Count 4.27 10^6/uL (4.1-5.3); Red Cell Distribution Width 13.3 % (12.1-15.1); White Blood Count 7.5 10^3/uL (4.0-10.0)
[2020-11-06 07:35] LABS: Alanine Aminotransferase 11 U/L (0-41); Albumin Level 4.2 g/dL (3.5-5.2); Alkaline Phosphatase 118 IU/L (40-130); Anion Gap 16.2 (5-19); Aspartate Amino Transferase 22 U/L (0-40); Blood Urea Nitrogen 17 mg/dL (8-23); Calcium 8.2 mg/dL (8.5-10.5); Carbon Dioxide 29 mmol/L (22-29); Chloride 97 mmol/L (98-107); Globulin 3.5 g/dL (1.3-4.6); Glucose 104 mg/dL (65-115); Osmolality Calculated 288 mOsm/kg (285-295); Potassium 4.2 mmol/L (3.5-5.1); Sodium 138 mmol/L (136-145); Total Bilirubin 0.4 mg/dL (0.15-1.2); Total Protein 7.7 g/dL (6.6-8.7)
[2020-11-06] MEDS: iohexol 300 mg/mL 100 mL Btl IV (07:47)
--- NOTE | 2020-11-06 08:24 | CT_ITS ---
WS: [id number] CT LUMBAR SPINE TECHNIQUE: Noncontrast CT of the lumbar spine with coronal and sagittal reformatted images. CLINICAL INFORMATION: urinary retnetion, R leg weakness COMPARISON: 2018 CT abdomen pelvis DLP: 2124.[address] scans at [facility] use at least one of these dose optimization techniques: automat ed exposure control; mA and/or kV adjustment per patient size (includes targeted exams where dose is matched to clinical indication); or iterative reconstruction. FINDINGS: Mild lumbar curve. Grade 1 anterolisthesis L5 on S1 with spondylolysis. New compression fracture invo lving the L4 superior endplate. This is new since 2018 CT abdomen pelvis. No retropulsion. Loss of approximately 40-50% vertebral body height centrally. New suspected sclerotic metastatic lesions invo lving the lumbar spine more prominent in the T12 inferior endplate, posterior L3 vertebral body, and central L5 vertebral body. A few additional sclerotic foci in the partially visualized sacrum. Moderate central canal stenosis L3-4 due to disc bulging with facet arthropathy and ligamentum flavum hypertrophy. Mild bilateral L3-4 foraminal narrowing. Mild left L4-[address]/CT lumbar spine wo con* [id number] IMPRESSION: 1. New compression of the L4 superior endplate with loss of approximately 40-5 0% vertebral body height. This is new since 2018. No significant retropulsion . 2. Moderate central canal stenosis L3-4 due to disc bulging with facet arthrop athy and ligamentum flavum hypertrophy. 3. Several new sclerotic lesions throughout the lumbar spine and partially vis ualized sacrum consistent with metastatic disease.
--- NOTE | 2020-11-06 08:24 | CT_ITS ---
WS: [id number] CT CERVICAL TRAUMA TECHNIQUE: Noncontrast CT of the cervical spine with coronal and sagittal reformatted images. CLINICAL INFORMATION: urinary retetention, loss of use of R side, melenoma w mets COMPARISON: None. DLP: 762.[address] scans at [facility] use at least one of these dose optimization techniques: automat ed exposure control; mA and/or kV adjustment per patient size (includes targeted exams where dose is matched to clinical indication); or iterative reconstruction. FINDINGS: Straightening of the normal cervical lordosis. Normal craniocervical junction. Normal C1-C2 articulat ion. Dens is normal in appearance. Normal occipital condyles. No high-grade spinal canal narrowing. N ormal C1 ring. No evidence of acute fracture or dislocation. Spinal canal appears patent. No high-grade central canal stenosis. Small areas of sclerosis involving the C4 and C5 vertebral bodies and spinous process at T1. These are nonspecific and may be incidenta l but metastatic disease not excluded. Left eccentric disc osteophyte complex C6-7 with moderate left foraminal narrowing. Right thyroid nodularity. Chronic appearing healed right posterior first rib fracture near the costov ertebral junction. CT/CT cervical spin wo con* [id number] IMPRESSION: 1. No acute fractures. 2. No high-grade central canal stenosis. 3. Moderate left C6-7 foraminal narrowing due to left eccentric disc osteophyt e complex. 4. Small sclerotic lesions at C4 and C5 and posterior spinous process at T1 ar e nonspecific and may be incidental but metastatic disease not excluded. This w ould be better evaluated with MRI, PET/CT, or bone scan.
--- NOTE | 2020-11-06 08:24 | CT_ITS ---
WS: [id number] CT THORACIC SPINE TECHNIQUE: Noncontrast CT of the thoracic spine with coronal and sagittal reformatted images. CLINICAL INFORMATION: loss of use of hte R side, melenoma with mets COMPARISON: None. DLP: 2045.[address] scans at [facility] use at least one of these dose optimization techniques: automat ed exposure control; mA and/or kV adjustment per patient size (includes targeted exams where dose is matched to clinical indication); or iterative reconstruction. FINDINGS: Thoracic curve convex left. Mild thoracic kyphosis. Chronic compression inferior endplate of T7 is un changed. Compression superior endplate T12 is unchanged. Mild compression superior endplates of T5 an d T6 stable in appearance. Chronic healed rib fractures with callus formation. Several sclerotic lesions involving the posterior vertebral bodies and vertebral pedicle junctions pr ogressed over the prior 2 examinations consistent with metastatic disease. A few foci in the posterio r elements. No new compression fractures. Partially visualized right hilar and suprahilar soft tissue thickening and lymphadenopathy progressed since August 15, 2020. Subcarinal lymphadenopathy. New soft tissue pleural-based metastatic lesions partially visualized in the right lower lobe. Parave rtebral lesions with metastatic lesion abutting the right T10/11 neural foramen. Subpleural nodules in the right lower lobe. A few patchy infiltrates in the left lower lobe. Progressed right paratrache al lymphadenopathy. Tiny right pleural effusion. Large esophageal hiatal hernia. CT/CT thoracic spin wo con* [id number] IMPRESSION: 1. Numerous sclerotic foci within the thoracic spine progressed over the prior 2 examinations most consistent with metastatic disease. A few additional foci involving the posterior elements. 2. Multiple chronic compression fractures are unchanged more prominent at T7 i nferior endplate at T12 superior endplate. No new compression fractures. 3. No high-grade central canal stenosis. 4. Partially visualized progressed mediastinal disease described above. This c an be followed up with chest CT or PET/CT.
--- NOTE | 2020-11-06 10:38 | MR_ITS ---
WS: [id number] MRI LUMBAR SPINE WITH CONTRAST TECHNIQUE: Sagittal T1, T2 and STIR imaging. Axial T1 and T2 imaging. Post gadolinium imaging was obt ained. Axial T2 imaging nondiagnostic due to motion. CLINICAL INFORMATION: mets frokm lung CA COMPARISON: CT earlier today. FINDINGS: Some images degraded by patient motion. Nondiagnostic axial T2 imaging due to motion. Diffuse enhancing metastatic lesions throughout the lumbar spine. No high-grade central canal stenosi s. No significant enhancing epidural disease in the lumbar spine. Compression superior endplate L4 ap pears chronic. Additional enhancing lesions throughout the visualized bony sacrum and ilium partially visualized. Mild compression superior endplate T11. Trace presacral edema. Bony metastatic lesions seen within the thoracic spine on the chainstitch seat joiner imaging with chronic anterior wed ging in the mid thoracic spine as described on the CT. Cervical and thoracic spinal canal appears pat ent. Motion artifact degrades images in the upper thoracic canal on the chainstitch seat joiner imaging. L1-L2: Mild annular bulging. Spinal canal and foramen are patent. L2-L3: Mild annular bulging. Mild facet arthropathy. Spinal canal and foramen are patent. L3-L4: Mild disc bulging with slight effacement of ventral thecal sac. Mild facet arthropathy. Spinal canal and foramen are patent. L4-L5: Mild annular bulging with slight effacement of the ventral thecal sac. Spinal canal is patent. Mild foraminal narrowing. Mild facet arthropathy. L5-S1: Grade 1 anterolisthesis L5 on S1 with bilateral spondylolysis. Minimal anterolisthesis L5 on S 1. Spinal canal and foramen are patent. MR/MR lumbar spine wo/w con [id number] IMPRESSION: 1. Innumerable metastatic lesions throughout the lower thoracic, lumbar, and v isualized pelvic and sacral bony structures. 2. No significant central canal stenosis. No significant epidural disease. 3. Bony metastatic disease throughout the thoracic spine seen on the chainstitch seat joiner nella ging. 4. Prominent confluent metastatic lesions involving the partially visualized r ight sacrum. Trace presacral edema. 5. Grade 1 anterolisthesis L5 on S1 with chronic spondylolysis. Trace anteroli sthesis L5 on S1. 6. Chronic compression T11 and L4 superior endplates. 7. On the chainstitch seat joiner imaging, cervical and the mid and lower thoracic canal are pat ent. Upper thoracic canal and cord is not well evaluated due to motion artifact . Recommend interval follow-up with thoracic spine MRI. Notified Que Gamboa DO at 11/06/2020 2:09 PM.
--- NOTE | 2020-11-06 11:17 | ECG_ITS ---
[facility] Test Date: 2020-11-06 Pat Name: Rafat Park Department: Room: Gender: Male Bun Icer: : 1940 Requested By: Que Fischer Order Number: [id number] Jackie MD: Loyd Baxter M.D. Measurements Intervals [place] Rate: 92 P: 88 CO: 201 QRS: -54 QRSD: 150 T: 63 QT: 419 QTc: 520 Interpretive Statements SINUS RHYTHM WITH OCCASIONAL SUPRAVENTRICULAR PREMATURE COMPLEXES MARKED LEFT AXIS DEVIATION [QRS AXIS < -30] RIGHT BUNDLE BRANCH BLOCK [120+ ms QRS DURATION, UPRIGHT V1, 40+ ms S IN I/aVL/V4/V5/V6] Compared to ECG 05/01/2020 09:58:35 Left-axis deviation now present Atrial fibrillation no longer present Right-axis deviation no longer present Electronically Signed On 11-06-2020 17:38:46 CDT by Loyd Baxter M.D. [id number]
[2020-11-06] MEDS: LORazepam 2 mg/mL INJ 1 mL IVP (11:33)
[2020-11-06] MEDS: dexamethasone 10 mg/mL INJ IVP (11:33)
--- NOTE | 2020-11-06 11:36 | PC.NURSE ---
Going for MRI
[2020-11-06] MEDS: LORazepam 2 mg/mL INJ 1 mL 1 MG IVP (12:43)
[2020-11-06] MEDS: fentaNYL 50 mcg/mL INJ 2mL 100 MCG IVP (12:43)
--- NOTE | 2020-11-06 13:37 | PC.NURSE ---
patient returns from MRI at this time
--- NOTE | 2020-11-06 15:04 | P.HP_ITS ---
Providers/Chief Complaint Primary Care Provider: Pedro Pablo Rasheed DO Chief Complaint: Weakness History of Present Illness Rafat Park is a 80 year old male who presents to the emergency department with complaints of weakness. He has had paresthesias in his left lower extremity for the last several weeks. He had some in the last 1 to 2 days in his right lower extremity. He has been weak all over, particularly in his lower extremities. He has had some constipation. He had a urinary catheter placed for urinary retention, by his oncologist on November 02. reports he is still thinking okay. Over the last several months or so he has become less and less mobile, only getting up to do some brief activity with a walker in between places of rest. He has had no fever. He has not had any exposure to Covid, or had Covid personally. He was vaccinated 3 weeks ago. He is fairly sedate after having an MRI and very hard of hearing. A lot of his history is obtained from his . Review of Systems General: Reports: 10 or more systems reviewed and unremarkable except in HPI and below Const: Denies: fever(s) Eyes: Denies: change in vision ENMT: Denies: throat pain Card: Denies: chest pain Resp: Denies: dyspnea GI: Denies: abdominal pain : Denies: flank pain Musc: Reports: back pain; Denies: neck pain Skin/Breast: Denies: rash Neuro: Denies: headache(s) Psych: Denies: anxiety or depression Endo: Denies: polyuria (Urinary retention) Eder/Lymph: Denies: easy bruising All/Imm: Denies: urticaria Medications/Allergies Home Medications Medication Instructions Recorded Confirmed Last Taken Type Mucinex 1,200 mg PO BID 04/02/20 11/06/20 11/06/20 History albuterol sulfate 2 puff INHALATION Q4H PRN 04/02/20 11/06/20 11/06/20 History aspirin 81 mg PO DAILY 04/02/20 11/06/20 11/06/20 History budesonide-formoterol [Symbicort] 2 puff INHALATION BID 04/02/20 11/06/20 11/06/20 History ipratropium-albuterol See Rx Instructions .ROUTE 04/02/20 11/06/20 11/06/20 History .COMPLEX PRN omeprazole 20 mg PO DAILY PRN 04/02/20 11/06/20 11/06/20 History pravastatin 20 mg PO DAILY 04/02/20 11/06/20 11/05/20 History acetaminophen 500 mg tablet 1,000 mg PO Q6H PRN tab 04/30/20 11/06/20 04/29/20 History oxycodone 5 mg tablet 10 mg PO Q6H PRN 04/30/20 11/06/20 05/07/20 06:30 History furosemide 20 mg tablet 20 mg PO BID tab 07/30/20 11/06/20 11/06/20 History metolazone 2.5 mg tablet 2.5 mg PO .COMPLEX 90 Days #45 tab 07/30/20 11/06/20 0 11/06/20 Rx 2.5mg daily potassium chloride 20 mEq 20 meq PO BID tab 07/30/20 11/06/20 11/06/20 History tablet,extended release(part/cryst) tiotropium bromide 2.5 See Rx Instructions .ROUTE 09/20/20 11/06/20 11/06/20 Rx mcg/actuation mist for inhalation .COMPLEX #12 g Allergies Allergy/AdvReac Type Severity Reaction Status Date / Time No Known Allergies Allergy Verified 11/02/20 13:05 PFSH Acute PFSH: Medical History (Updated 11/06/20 @ 15:20 by Santy Stephens MD) Asthma COPD (chronic obstructive pulmonary disease) GERD (gastroesophageal reflux disease) HTN (hypertension) Hyperlipidemia Meniere disease Small cell lung cancer Surgical History (Updated 11/06/20 @ 15:07 by Santy Stephens MD) H/O brain surgery H/O colonoscopy H/O detached retina repair History of appendectomy Hx of cataract surgery Family History Brother Cancer Other Diabetes Denies family history of CAD (coronary artery disease) Anesthesia complication Bleeding disorder Social History Smoking and tobacco status: former smoker Quit status (tobacco): has quit using tobacco Year quit tobacco: 2005 - Hx of 2PPD x 50 Alcohol intake: never Lives independently: Yes Household members: spouse Marital status: Current occupational status: retired History of recent travel: No Current gender identity: Male Vitals/I&O/Wt Last Vital Signs Temp 97.9 F 11/06/20 10:26 Pulse 71 11/06/20 13:37 Resp 20 H 11/06/20 13:37 BP 137/71 11/06/20 13:37 Pulse Ox 95 11/06/20 13:37 Weight last 48 hrs Weight 95.254 kg Physical Exam Narrative: EXAM NARRATIVE: General exam is a white male, no obvious distress HEENT: Pupils equally round. Oropharynx clear. Neck supple no lymphadenopathy, thyromegaly Cardiovascular regular rate and rhythm, no murmur Lungs diminished breath sounds bilaterally but clear Abdomen is soft obese nontender with positive bowel sounds Extremities no cyanosis clubbing. Trace edema bilaterally right greater than left. Global weakness lower extremities. Sensation, DTRs intact Data : 11/06/20 06:45 11/06/20 06:45 Other data: MRI lumbosacral spine multiple bony mets, no anal stenosis. Chronic compression fractures noted. CT thoracic spine with T1 and T12 compression, multiple areas of bony mets and no high-grade stenosis. EKG with sinus rhythm, right bundle branch block, no changes Head CT with no significant change, multiple bilateral metastatic lesions LFTs normal Calcium 8.2 TSH in September 4.25 Urinalysis not checked A&P Assessment and plan (1) Weakness: Significant lower extremity weakness, combination of deconditioning with large metastatic burden in thoracic and lumbar spine. Although no central canal stenosis is noted patient may benefit from IV steroids steroids which will be initiated Physical therapy and Occupational Therapy consultations Check CK Status: Acute (2) Back pain: See notations above. CT thoracic and lumbar as well as MRI lumbar spine have been performed. Status: Acute (3) Small cell lung cancer: Chest x-ray secondary to weakness, history of lung cancer. Status: Acute (4) Acute retention of urine: Continue Mercedes Check urinalysis Status: Acute (5) COPD (chronic obstructive pulmonary disease): No evidence of exacerbation currently. Status: Acute (6) HTN (hypertension): Continue home meds Status: Acute Additional A&P Information History of hyperlipidemia. Continue home meds Multiple other medical problems as outlined in past medical history Full code. Discussed with the patient Lovenox will suffice for DVT prophylaxis. Attestations Medical Necessity Statement*: At this point will be unlikely to need greater than 2 midnight stay. Observation. Time Spent in Patient Care: Greater than 35 minutes Coding Level of Care Code Acute Human Resources Office Assistant for Chg Fwd Diagnoses Weakness R53.1 Back pain M54.9 Small cell lung cancer C34.90 Acute retention of urine R33.8 COPD (chronic obstructive pulmonary disease) J44.9 HTN (hypertension) I10
--- NOTE | 2020-11-06 15:11 | XR_ITS ---
WS: [id number] Exam: XR chest 1V portable [id number] Date/Time of Exam: 11/06/2020 3:42 PM Reason For Exam: folow up lung CA Comparison 04/02/2020. An ovoid soft tissue mass is seen in the right lower lobe. Right suprahilar soft tissue nodule also n oted. No infiltrates. No pleural effusions. Large hiatal hernia. Heart size is within normal limits f or technique. There is widening of the superior mediastinum. A Chemo-Port appears to be looped in th e region of the right internal jugular vein. It is incompletely visualized. XR/XR chest 1V portable [id number] IMPRESSION: 1. Ill-defined ovoid soft tissue mass in the right lower lung zone. There is al so a soft tissue mass seen in the right suprahilar region. Significant widening of the superior mediastinum which may represent lymphadenopathy. 2. No acute infiltrates are seen. 3. Large hiatal hernia. 4. A Chemo-Port is looped in the expected region of the right internal regular vein. It is incompletely visualized.
[2020-11-06 16:13] LABS: Bilirubin Urine Neg (Negative); Blood Urine 2+ (Negative); Glucose Urine UA Norm (Normal); Ketones Urine Negative (Negative); Leukocyte Esterase Urine Negative (Negative); Nitrate Urine Negative (Negative); Protein Urine Neg (Negative); Urine Appearance Clear (CLEAR); Urine Color Yellow (Yellow); Urobilinogen Urine Norm (Negative); pH Urine 5 (5-7)
[2020-11-06 16:14] LABS: Add Urine Culture? No; Bacteria Urine TRACE /hpf; RBC Urine 0-4 /hpf (0-2); Squamous Epithelial Cell Urine 0-4 /hpf (0-5)
[2020-11-06 16:22] LABS: Creatine Phosphokinase 78 U/L (39-308); Magnesium 1.9 mg/dL (1.7-2.3)
[2020-11-06] MEDS: enoxaparin 40 mg/0.4 mL Syringe SUBCUT (17:19)
[2020-11-06] MEDS: potassium chloride ER 20 mEq Tablet PO (17:19)
[2020-11-06] MEDS: dexamethasone 4 mg/mL INJ IVP ×2 (17:19→23:12)
[2020-11-06] MEDS: guaiFENesin 600 mg Tablet 1200 MG PO (17:20)
[2020-11-06] MEDS: FUROsemide 20 mg Tablet PO (17:20)
[2020-11-06 19:48] LABS: Thyroid Stimulating Hormone 7.21 uIU/mL (0.27-4.20)
[2020-11-07] VITALS (15 sets, daily range): BP systolic 112–136; BP diastolic 52–79; PULSE 60–91; RESP 14–20; TEMP 36.4–36.8; O2SAT 93–97
[2020-11-07] MEDS: dexamethasone 4 mg/mL INJ IVP ×4 (04:11→22:58)
[2020-11-07 06:31] LABS: Hematocrit 34.8 % (42.0-52.0); Hemoglobin 11.1 g/dL (11.7-16.6); Lymphocytes # 0.6 10^3/uL (0.8-4.8); Lymphocytes % 14.5 %; Mean Corpuscular HGB Conc 31.9 g/dL (30.0-36.0); Mean Corpuscular Hemoglobin 28.9 pg (28.0-34.0); Mean Corpuscular Volume 90.6 fL (80-94); Mean Platelet Volume 9.5 fL (7.4-10.4); Monocytes # 0.2 10^3/uL (0.2-0.9); Monocytes % 4.2 %; Neutrophils # 3.29 10^3/uL (1.8-7.7); Neutrophils % 80.6 %; Nucleated Red Blood Cells % 0 %; Platelet Count 193 10^3/cmm (130-400); Red Blood Count 3.84 10^6/uL (4.1-5.3); Red Cell Distribution Width 13.2 % (12.1-15.1); White Blood Count 4.1 10^3/uL (4.0-10.0)
[2020-11-07 06:52] LABS: Anion Gap 14.7 (5-19); Blood Urea Nitrogen 17 mg/dL (8-23); Carbon Dioxide 30 mmol/L (22-29); Chloride 92 mmol/L (98-107); Glucose 129 mg/dL (65-115); Osmolality Calculated 279 mOsm/kg (285-295); Potassium 3.7 mmol/L (3.5-5.1); Sodium 133 mmol/L (136-145)
[2020-11-07] MEDS: albuterol 8 gm MDI 2 PUFF INHALATION ×3 (07:33→21:48)
[2020-11-07] MEDS: guaiFENesin 600 mg Tablet 1200 MG PO ×2 (09:27→17:08)
[2020-11-07] MEDS: FUROsemide 20 mg Tablet PO ×2 (09:27→17:10)
[2020-11-07] MEDS: aspirin 81 mg EC Tablet PO (09:27)
[2020-11-07] MEDS: atorvastatin 40 mg Tablet 20 MG PO (09:27)
[2020-11-07] MEDS: potassium chloride ER 20 mEq Tablet PO ×2 (09:27→17:10)
--- NOTE | 2020-11-07 12:57 | P.PN_ITS ---
Subjective Subjective: Interval history: Still very weak. does not believe she can manage him at home in his current state. Therapy has worked with him today, and was present for this evaluation. Medications: Reviewed: Yes Vitals/I&O/Wt Last Vital Signs Temp 97.6 F 11/07/20 10:59 Pulse 91 11/07/20 11:09 Resp 20 H 11/07/20 11:05 BP 116/67 11/07/20 10:59 Pulse Ox 94 11/07/20 11:05 11/06/20 11/07/20 11/07/20 22:59 06:59 14:59 Intake Total 240 / 240 Output Total 150 / 150 1050 / 1200 425 / 425 Balance 90 / 90 -1050 / -960 -425 / -425 Weight last 48 hrs Weight 95.254 kg Physical Exam Narrative: EXAM NARRATIVE: General exam is a white male, no obvious distress Neck supple no lymphadenopathy, thyromegaly Cardiovascular regular rate and rhythm, no murmur Lungs diminished breath sounds bilaterally but clear Abdomen is soft obese nontender with positive bowel sounds Extremities no cyanosis clubbing. Lower extremity weakness, left slightly more than right. No sacral paresthesia. Data : 11/07/20 05:48 11/07/20 05:48 A&P Assessment and plan (1) Weakness: Significant lower extremity weakness, combination of deconditioning with large metastatic burden in thoracic and lumbar spine. Although no central canal stenosis is noted patient may benefit from IV steroids steroids was initiated a fter discussion with oncology. does not believe she can take him home in his current state of weakness. Physical therapy and Occupational Therapy consultations CK was checked and normal Status: Acute (2) Back pain: See notations above. CT thoracic and lumbar as well as MRI lumbar spine have been performed. Status: Acute (3) Small cell lung cancer: Chest x-ray secondary to weakness, history of lung cancer. Status: Acute (4) Acute retention of urine: Continue Mercedes Urinalysis was checked and no evidence of UTI Status: Acute (5) COPD (chronic obstructive pulmonary disease): No evidence of exacerbation currently. Status: Acute (6) HTN (hypertension): Continue home meds Status: Acute Additional A&P Information History of hyperlipidemia. Continue home meds Multiple other medical problems as outlined in past medical history Full code. Discussed with the patient Lovenox will suffice for DVT prophylaxis. Attestations Medical Necessity Statement*: Unsafe discharge from mobility standpoint with inadequate resources at home according to . Discharge services involved and will continue follow-up on options. Continue observation status currently. Coding Level of Care Code Acute Sas Sql Developer for Chg Fwd Diagnoses Weakness R53.1 Back pain M54.9 Small cell lung cancer C34.90 Acute retention of urine R33.8 COPD (chronic obstructive pulmonary disease) J44.9 HTN (hypertension) I10
[2020-11-07] MEDS: enoxaparin 40 mg/0.4 mL Syringe SUBCUT (17:07)
[2020-11-07] MEDS: oxyCODONE 5 mg IR Tab/Cap 10 MG PO ×2 (17:10→23:00)
[2020-11-08] VITALS (13 sets, daily range): BP systolic 107–133; BP diastolic 62–73; PULSE 72–92; RESP 16–20; TEMP 36.7–36.8; O2SAT 94–98
[2020-11-08] MEDS: dexamethasone 4 mg/mL INJ IVP (04:38)
[2020-11-08] MEDS: albuterol 8 gm MDI 2 PUFF INHALATION ×4 (08:11→20:22)
--- NOTE | 2020-11-08 09:02 | PM.PN ---
Subjective Subjective: Interval history: Rafat reports he is about the same. Still significantly weak. No nausea or vomiting. Denies being short of breath on his current amount of oxygen. Medications: Reviewed: Yes Vitals/I&O/Wt Last Vital Signs Temp 98.1 F 11/08/20 07:46 Pulse 86 11/08/20 08:16 Resp 18 11/08/20 08:11 BP 120/73 11/08/20 07:46 Pulse Ox 94 11/08/20 08:11 11/07/20 11/08/20 11/08/20 22:59 06:59 14:59 Intake Total 840 / 1720 200 / 1920 Output Total 400 / 825 900 / 1725 Balance 440 / 895 -700 / 195 Physical Exam Narrative: EXAM NARRATIVE: General exam is a white male, no obvious distress Neck supple no lymphadenopathy, thyromegaly Cardiovascular regular rate and rhythm, no murmur Lungs diminished breath sounds bilaterally but clear Abdomen is soft obese nontender with positive bowel sounds Extremities no cyanosis clubbing. Bilateral lower extremity weakness about equal today. No sacral paresthesias. Data : 11/07/20 05:48 11/07/20 05:48 A&P Assessment and plan (1) Weakness: Significant lower extremity weakness, combination of deconditioning with large metastatic burden in thoracic and lumbar spine. Although no central canal stenosis is noted patient may benefit from IV steroids steroids was initiated after discussion with oncology. does not believe she can take him home in his current state of weakness. Physical therapy and Occupational Therapy consultations CK was checked and normal With his significant weakness he is at high risk for fall and/or fracture. He could definitely benefit from skilled placement. At this point reduce his dexamethasone to 4 mg by mouth twice daily. Will need close follow-up with oncology as an outpatient. Status: Acute (2) Back pain: See notations above. CT thoracic and lumbar as well as MRI lumbar spine have been performed. Status: Acute (3) Small cell lung cancer: Chest x-ray secondary to weakness, history of lung cancer. No evidence of active pneumonia on chest x-ray Status: Acute (4) Acute retention of urine: Continue Mercedes secondary to urinary retention Urinalysis was checked and no evidence of UTI Status: Acute (5) COPD (chronic obstructive pulmonary disease): No evidence of exacerbation currently. Status: Acute (6) HTN (hypertension): Continue home meds Status: Acute Additional A&P Information History of hyperlipidemia. Continue home meds Multiple other medical problems as outlined in past medical history Full code. Discussed with the patient Lovenox will suffice for DVT prophylaxis. Attestations Medical Necessity Statement*: Needs continued hospital stay for therapy, support pending placement as he is a high fall risk, risk for fracture, risk for rehospitalization. Coding Level of Care Code Acute Windows And Doors Installer for [employer] Fwd Diagnoses Weakness R53.1 Back pain M54.9 Small cell lung cancer C34.90 Acute retention of urine R33.8 COPD (chronic obstructive pulmonary disease) J44.9 HTN (hypertension) I10
[2020-11-08] MEDS: oxyCODONE 5 mg IR Tab/Cap 10 MG PO ×2 (09:21→18:49)
[2020-11-08] MEDS: FUROsemide 20 mg Tablet PO ×2 (09:22→18:47)
[2020-11-08] MEDS: potassium chloride ER 20 mEq Tablet PO ×2 (09:22→18:47)
[2020-11-08] MEDS: aspirin 81 mg EC Tablet PO (09:22)
[2020-11-08] MEDS: guaiFENesin 600 mg Tablet 1200 MG PO ×2 (09:22→18:47)
[2020-11-08] MEDS: atorvastatin 40 mg Tablet 20 MG PO (09:22)
--- NOTE | 2020-11-08 11:35 | PC.NURSE ---
the left arm was 99/60, a little low
--- NOTE | 2020-11-08 12:31 | PC.NUTR ---
Nutrition assessment completed d/t MST score of 5. Recommend diet liberalized to Regular given pt age and significant wt loss hx. See RD assessment for further details.
[2020-11-08] MEDS: dexamethasone 4 mg Tablet PO (18:48)
[2020-11-08] MEDS: enoxaparin 40 mg/0.4 mL Syringe SUBCUT (18:49)
[2020-11-09] VITALS (9 sets, daily range): BP systolic 122–142; BP diastolic 67–80; PULSE 67–78; RESP 18–22; TEMP 36.4–36.8; O2SAT 94–98
[2020-11-09] MEDS: oxyCODONE 5 mg IR Tab/Cap 10 MG PO ×2 (03:15→10:18)
[2020-11-09] MEDS: albuterol 8 gm MDI 2 PUFF INHALATION (07:30)
[2020-11-09] MEDS: aspirin 81 mg EC Tablet PO (09:17)
[2020-11-09] MEDS: dexamethasone 4 mg Tablet PO (09:17)
[2020-11-09] MEDS: atorvastatin 40 mg Tablet 20 MG PO (09:17)
[2020-11-09] MEDS: guaiFENesin 600 mg Tablet 1200 MG PO (09:17)
[2020-11-09] MEDS: potassium chloride ER 20 mEq Tablet PO (09:18)
[2020-11-09] MEDS: FUROsemide 20 mg Tablet PO (09:18)
[2020-11-09] MEDS: acetaminophen 325 mg Tablet 650 MG PO (09:18)
--- NOTE | 2020-11-09 11:12 | P.PN_ITS ---
Subjective Subjective: Interval history: Feels about the same. May be a little stronger in his legs. Medications: Reviewed: Yes Vitals/I&O/Wt Last Vital Signs Temp 98.0 F 11/09/20 07:32 Pulse 78 11/09/20 07:36 Resp 18 11/09/20 10:18 BP 129/80 11/09/20 07:32 Pulse Ox 95 11/09/20 07:33 11/08/20 11/09/20 11/09/20 22:59 06:59 14:59 Intake Total 120 / 660 240 / 240 Output Total 725 / 725 850 / 1575 Balance -605 / -65 -850 / -915 240 / 240 Physical Exam Narrative: EXAM NARRATIVE: General exam is a white male, no obvious distress Neck supple no lymphadenopathy, thyromegaly Cardiovascular regular rate and rhythm, no murmur Lungs diminished breath sounds bilaterally but clear Abdomen is soft obese nontender with positive bowel sounds Extremities no cyanosis clubbing. Bilateral lower extremity weakness about equal today. No sacral paresthesias. Sensation subjectively diminished left lower extremity but still present. Straight leg raise done with some difficulty bilaterally. Data : 11/07/20 05:48 11/07/20 05:48 A&P Assessment and plan (1) Weakness: Significant lower extremity weakness, combination of deconditioning with large metastatic burden in thoracic and lumbar spine. Although no central canal stenosis is noted patient may benefit from steroids which were initiated after discussion with oncology. does not believe she can take him home in his current state of weakness. Physical therapy and Occupational Therapy consultations CK was checked and normal With his significant weakness he is at high risk for fall and/or fracture. He could definitely benefit from skilled placement. Dexamethasone has been reduced to 4 mg by mouth twice daily. Will need close follow-up with oncology as an outpatient. I have discussed with his primary oncologist and he will follow up on any further imaging as an outpatient. At this point continuing to work on therapy, awaiting placement Status: Acute (2) Back pain: See notations above. CT thoracic and lumbar as well as MRI lumbar spine have been performed. Status: Acute (3) Small cell lung cancer: Chest x-ray secondary to weakness, history of lung cancer. No evidence of active pneumonia on chest x-ray Status: Acute (4) Acute retention of urine: Continue Mercedes secondary to urinary retention. This was placed prior to this hospitalization. Urinalysis was checked and no evidence of UTI Status: Acute (5) COPD (chronic obstructive pulmonary disease): No evidence of exacerbation currently. Status: Acute (6) HTN (hypertension): Continue home meds Status: Acute Additional A&P Information History of hyperlipidemia. Continue home meds Multiple other medical problems as outlined in past medical history Full code. Discussed with the patient Lovenox will suffice for DVT prophylaxis. Attestations Medical Necessity Statement*: Needs continued hospitalization, working on therapy prior to placement. Coding Level of Care Code Acute Hospice Volunteer Coordinator for [employer] Fwd Diagnoses Weakness R53.1 Back pain M54.9 Small cell lung cancer C34.90 Acute retention of urine R33.8 COPD (chronic obstructive pulmonary disease) J44.9 HTN (hypertension) I10
--- NOTE | 2020-11-09 13:19 | PC.CHAP ---
Pastoral Care Encounter/Spiritual Assessment Type of Contact [] Declined intramural director visit [] Patient/Family/Request visit [] Outpatient visit [xx] Follow-up visit [] Physician referral [] Code/Alert [xx] Routine visit [] Staff referral [] Actively dying [] Patient sleeping [] Family support [] [] Out of room [] Palliative care [] [] Receiving care in room [] Pre-surgical visit [] Trauma [xx] Long length of stay [] ICU visit [] Other: Relational/Emotional Strength [xx] Patient feels connected with others/family/visitors/staff [] Distress [] Loneliness/isolation [] Abandonment Spirituality of Patient [xx] Person of Sasha [] Attends Denominational of their Sasha [xx] Believes in Prayer [xx] Reads Bible or Jewish materials [] There are Spiritual issues to be addressed Component Technician Interventions [xx] Prayer [xx] Active listening [xx] Non-anxious presence [] Spiritual/emotional support [] Crisis/trauma care [] Spiritual counseling [] Bereavement support [] Provided bereavement packet [] Provided Bible/devotional materials [] Provided toy/stuffed animal, coloring book to patient or family member [] Provided Communion [] Anointing/Nemo [] Salvation [xx] Completed spiritual assessment [] Other: Impact on Illness or Injury [] Angry [] Fearful [] Anxious [] Often cries [] Exhaustion [] Unable to work [] Unable to attend jew [] Unable to walk/stand [] Unable to read [] Unable to drive [] Unable to eat/drink [] Unable to sleep [] Unable to be with family [] Patient intubated [] Other: Summary was present for a while. Patient stated he is transferring to [facility] for rehab. He and his are OK with this as it is for rehab only. He has no feeling in either leg now and needs to relearn how to walk per his statement. Time spent with patient 6 minutes
--- NOTE | 2020-11-09 14:14 | PM.DCS ---
Discharge Providers Date of Admission: 11/06/20 14:38 Date of Discharge: November 09, 2020 Attending Provider at Admission: Santy Stephens MD Attending Provider at Discharge: Santy Stephens MD Primary Care Provider: Pedro Pablo Rasheed DO Diagnoses at Discharge Discharge Diagnosis (1) Weakness: Status: Acute (2) Back pain: Status: Acute (3) Small cell lung cancer: Status: Acute (4) Acute retention of urine: Status: Acute (5) COPD (chronic obstructive pulmonary disease): Status: Acute (6) HTN (hypertension): Status: Acute Reason for Visit Reason for Visit: Weakness Hospital Course Hospital Course Rafat is a 80-year-old white male with history of deconditioning for quite some while with increasing weakness in his lower extremities, numbness left greater than right. He had some issues with urinary retention several weeks prior to admission for which a Mercedes catheter was placed. On evaluation in the emergency department there was concern for cauda equina. Thoracic and lumbar spine CT was performed which demonstrated no significant central canal stenosis. This was followed up with an emergent MRI of his lumbosacral spine which demonstrated some disc disease, with herniated disk with slight pressure on the thecal sac but no significant spinal cord compression. CT scan demonstrated no change in his intracranial lesions. On all studies he had evidence of multiple bony mets from his small cell lung cancer. I discussed his case with his oncologist and he was placed on IV steroids initially. He tolerated this well and had perhaps minimal improvement while in the hospital. It was evident during the hospital that he would need rehabilitation and this was set up and arranged. He was able to leave the hospital in November 09 for rehabilitation. He will be discharged on dexamethasone twice a day, with close follow-up with his oncologist to determine if any other further evaluation or treatment is needed. Physical Exam Narrative: EXAM NARRATIVE: General exam no apparent distress Cardiovascular regular rate and rhythm without murmur Lungs clear no wheezing or crackles Abdomen is soft, positive bowel sounds Extremities no cyanosis clubbing or edema Discharge Data Data Completed and Pending: Completed Studies During Hospitalization Category Date Time Status CT cervical spin wo con* [id number] Stat Cat Scan 11/06/20 08:[address] head wo/w con [id number] Stat Cat Scan 11/06/20 07:[address] lumbar spine w o con* [id number] Stat Cat Scan 11/06/20 08:[address] thoracic spin wo con* [id number] Stat Cat Scan 11/06/20 08:24 Completed XR chest 1V cristian ble [id number] Routine Exams 11/06/20 15:11 Completed MR lumbar spine w o/w con [id number] Stat MRI 11/06/20 10:38 Completed Vitals: Last Vital Signs Temp 97.5 F L 11/09/20 12:00 Pulse 75 11/09/20 12:00 Resp 19 H 11/09/20 12:00 BP 142/77 11/09/20 12:00 Pulse Ox 96 11/09/20 12:00 Discharge Plan Discharge Patient Disposition: Xfer SNF Condition: Stable Prescriptions: New dexamethasone 4 mg Tablet 4 mg PO BID Qty: 60 RF: 0 Continued furosemide [Lasix] 20 mg tablet 20 mg PO BID RF: 0 metolazone 2.5 mg tablet 2.5 mg PO .COMPLEX 90 Days Qty: 45 RF: 0 potassium chloride 20 mEq tablet,ER particles/crystals 20 meq PO BID RF: 0 acetaminophen [Tylenol Extra Strength] 500 mg tablet 1,000 mg PO Q6H PRN (Reason: Pain) RF: 0 Spiriva Respimat 2.5 mcg/actuation mist See Rx Instructions .ROUTE .COMPLEX Qty: 12 RF: 3 ipratropium-albuterol 0.5 mg-3 mg(2.5 mg base)/3 mL solution for nebulization See Rx Instructions .ROUTE .COMPLEX PRN (Reason: cough/shortness of breath) RF: 0 omeprazole 20 mg Capsule,Delayed Release(Dr/Ec) 20 mg PO DAILY PRN (Reason: Heartburn) RF: 0 aspirin 81 mg Tablet 81 mg PO DAILY RF: 0 Hold Instructions: Resume on 05/12/20. pravastatin 20 mg tablet 20 mg PO DAILY RF: 0 albuterol sulfate 90 mcg/actuation HFA aerosol inhaler 2 puff inhalation Q4H PRN (Reason: Shortness Of Breath) RF: 0 budesonide-formoterol [Symbicort] 160-4.5 mcg/actuation HFA aerosol inhaler 2 puff INHALATION BID RF: 0 Mucinex 1,200 mg Tablet Extended Release 12hr 1,200 mg PO BID RF: 0 levothyroxine 50 mcg Tablet 50 mcg PO DAILY RF: 0 oxycodone 5 mg tablet 10 mg PO Q6H PRN (Reason: Pain) Qty: 20 RF: 0 Discontinued oxycodone 5 mg tablet 10 mg PO Q6H PRN (Reason: Pain) RF: 0 Discharge Orders: Discharge Order (Routine); Ordered 11/09/20 Ordered By: Santy Stephens Referrals: Pedro Pablo Raymond MD [Hospitalist] - 4-7 days Pedro Pablo Rasheed DO [Primary Care Provider] - 4-7 days Discharge Diet: Regular Discharge Activity: Increase activity as tolerated Patient Instructions: Opioid Safety Activity Restrictions/Additional Instructions: Take all medicine as prescribed Follow-up with oncology next week to see if any further evaluation needs to occur. Discharge Attestations Time Spent in Discharge Care*: greater than 30 min Quality Metrics Clinical Quality Measures During this hospital stay, did patient experience: None Coding Level of Care Code Acute Chg [facility] note Diagnoses Weakness R53.1 Back pain M54.9 Small cell lung cancer C34.90 Acute retention of urine R33.8 COPD (chronic obstructive pulmonary disease) J44.9 HTN (hypertension) I10
--- NOTE | 2020-11-09 20:22 | PC.RESP ---
Pulmonary Rehab information sent to patient.
== END 2020-11-09 15:30 | disposition skilled nursing facility (03) ==
LOC: ER 07:38 → MEDSURG 11-07 09:17
PROVIDERS: Admitting Provider Internal Medicine; Emergency Provider Family Medicine; PCP Internal Medicine; Visit Provider Internal Medicine
DX: R53.1 Weakness (principal); M54.9 Dorsalgia, unspecified; C34.90 Malignant neoplasm of unspecified part of unspecified bronchus or lung; R33.8 Other retention of urine; J44.9 Chronic obstructive pulmonary disease, unspecified; I10 Essential (primary) hypertension; E78.5 Hyperlipidemia, unspecified; Z85.118 Personal history of other malignant neoplasm of bronchus and lung; Z87.891 Personal history of nicotine dependence
CPT/HCPCS: 36415; 70470; 71045; 72125; 72128; 72131; 72158; 80048; 80053; 81001; 82550; 83735; 84443; 85025; 93005; 94640; 96372; 96374; 96375; 96376; 97110; 97161; 97166; 97530; 99285; A9579; G0378; J1100; J1650; J2060; J3010; J3535; J8540; Q9967

== ENCOUNTER 2020-11-15 10:27 | Outpatient (CLI) | payer MEDICARE, SELFPAY ==
--- NOTE | 2020-11-15 19:31 | ONC FU_ITS ---
Dr. Raymond Patient Follow-Up Note Patient: Rafat Park Unit #: [id number]: [id number] Dicatated By: Pedro Pablo Raymond M.D.Date of Visit:Nov 15, 2020 Onc Med Follow-up/Prog Note Chief Complaint: Lung cancer. 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 On 04/02/2020 had presented to the emergency room with shortness of breath and chest pain. His CT pulmonary angiogram showed no evidence of pulmonary embolism. However, there were multiple small pleural-based nodules noted in the right lung and there was a bulky mass noted in the middle mediastinum measuring 9.9 x 5.8 x 9.7 cm. Tumor was noted to extend into the right hilum. A pretracheal superior mediastinal mass measured 3.3 x 2.0 x 3.0 cm and an anterior mediastinal tumor nodule measured 2.1 x 1.5 x 1.8 cm. Other anterior, middle, and posterior mediastinal tumor foci were present. There was a small right pleural effusion. Also noted was a right hepatic lobe mass measuring 6.5 x 5.5 x 5.6 cm, thought to be likely metastasis. He was referred to Dr. Bedolla and 04/06/2020 underwent bronchoscopy/EBUS with FNA biopsy of right paratracheal mass. There were no endobronchial lesions identified. The FNA biopsy was positive for small cell carcinoma favoring lung origin. A staging PET/CT 04/17/2020 showed multiple small FDG avid pleural-based lesions in the right lung, a highly FDG avid anterior mediastinal mass with SUV 11.9, highly FDG avid right paratracheal mass with SUV 16.55, and FDG avid hilar lymphadenopathy bilaterally. There was additional FDG avid adenopathy nodes in the upper abdomen and the mass in the right lobe of the liver was also FDG avid with SUV 17.14. There were multiple sites of FDG avid skeletal lesions including the cervical, thoracic, and lumbar spine, pelvis, sternum, and rib cage. I had seen him initially on 04/24/2020. In the setting of extensive stage small cell lung cancer, he was recommended to undergo treatment with carboplatin/etoposide chemotherapy in combination with atezolizumab. He began his first cycle on 05/02/2020. It was complicated by neutropenia, requiring growth factor support with Neupogen. He continued with cycle 2 on 05/22/2020. He again required Neupogen for treatment of neutropenia, but with both cycles he recovered uneventfully. His restaging chest CT on 06/04/2020 showed significant improvement in the right hilar mass and associated satellite nodules, but with residual mass in the inferior right paratracheal region measuring 3.1 cm. There is moderate decrease in the size of the metastatic lesion in the right lobe of the liver measuring 1.9 x 3.0 cm. Right thyroid nodule measured 2.4 x 2.3 cm. There were minimal anterior compression fractures noted in the thoracic spine with no retropulsion. He then continued with cycle 3 of carboplatin/etoposide/atezolizumab on 06/13/2020. He began cycle 4 on 07/25/2020. It had been delayed due to neutropenia. His restaging chest CT on 08/15/2020 showed residual soft tissue thickening in the right paratracheal region measuring 2.0 x 1.1 cm and with just slight interval improvement. Additional subpleural nodules in the right middle lobe and right lower lobe appeared unchanged. There was no mediastinal or hilar adenopathy. A heterogeneous thyroid nodule with mediastinal extension also appeared stable, and a partially visualized right hepatic lesion also appeared stable. There were multiple chronic appearing compression fractures in the thoracic spine. A mild compression involving the inferior endplate of T7 appeared to be new. With those findings, he was recommended to continue maintenance immunotherapy. His other medical illnesses include COPD, hypertension, hyperlipidemia, and GERD. 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 He has a history of smoking 2 packs of cigarettes daily for 40 years. He quit smoking in 2006. INTERIM HISTORY: He began cycle 1 of maintenance atezolizumab on 08/23/2020. He tolerated it without significant toxicity, and he then continued treatment at 3-week intervals. As of 10/25/2020 he had completed his 8th cycle. At that time he had reported new onset of numbness and tingling in his legs. Head CT at that time showed several lesions within the brain with minimal enhancement. These were felt to be highly suspicious for metastatic sites. He refused MRI. On 11/06/2020 he presented to the emergency room with urinary retention. He was also complaining of weakness in his legs. Repeat head CT was unchanged. CT scans of the cervical, thoracic, and lumbar spine showed multiple sclerotic lesions consistent with progression of bony metastatic disease, but there were no findings to suggest cord compression. He eventually did agree to have an MRI of the lumbar spine. It also showed innumerable metastatic lesions in the bone, but no evidence of cord compression. He is seen for a follow-up visit. His leg weakness has worsened to the point that he cannot move them at all now. His legs are also completely numb. He has indwelling Mercedes catheter due to urinary retention, and he also has developed bowel incontinence. His ECOG score is 4. Appetite is poor. He has not had fever. He does have some sweating at night. He occasionally has sinus drainage and he does have some cough. He is short of breath at times. He is on oxygen. He does not complain of chest pain. He has a little nausea and he occasionally has heartburn. He has developed constipation, and he has having some pain in the upper abdominal area. He is not having any significant joint or bone pain. In particular, he has not had pain in his neck or back. He does not complain of headache. He does have dizziness if he moves too fast. Medications: Acetaminophen 1 Tablet (of 500 mg) Oral daily PRN, Aspirin 1 Tablet Tablet, chewable Oral daily, Lasix (40 mg) Tablet Oral b.i.d., Magnesium 1 Capsule (of 100 mg) Oral daily, metOLazone 1 Tablet (of 2.5 mg) Oral daily on Every Other Day, Mucinex 1 Tablet Tablet SR 12 HR Oral daily, Omeprazole 1 Capsule (of 20 mg) Capsule Delayed Release Oral daily, Potassium 1 Tablet (of 20 meq) Oral b.i.d., Pravastatin Sodium 1 Tablet (of 20 mg) Oral daily, Spiriva Respimat 1 Puff(s) (of 2.5 mcg/act) Aerosol, solution Inhalation daily PRN, Symbicort 1 Puff(s) (of 160-4.5 mcg/act) Aerosol Inhalation daily PRN, Ventolin HFA 1 Puff(s) (of 108 (90 base) mcg/act) Aerosol, solution Inhalation daily PRN Allergies: No Known Allergies. Vital Signs: Performed on Nov 15, 2020 11:10 Height - 73.00 in Temperature - 97.5 F (LOW) Pulse - 82 /min Respiration - 18 /min BP - 100/59 mm(hg) O2 Sat - 97 % Pain - 0 Fatigue - 4 Physical Examination: Constitutional - He appears generally weak, Eyes - Sclerae nonicteric. Conjunctivae clear, ENMT - There is evidence of oral candidiasis, Hematologic/Lymphatic - No cervical, clavicular, or axillary adenopathy, Respiratory - Lungs show markedly diminished air movement bilaterally, Cardiovascular - Heart rhythm is regular. There is no murmur, gallop, or rub noted, Abdomen - Mildly distended and tympanic. Liver and spleen are not enlarged. There is no abdominal mass or ascites noted and there is no inguinal adenopathy, Extremities - No edema. There is extensive purpura on both arms, Neurologic - He has total paraplegia. There is a sensory level at the lower chest, estimated at T5. Lab/Imaging: Test performed on Nov 14, 2020 05:28 T4, Free 1.1 ng/dL TSH 5.7 uU/mL Glucose 114 mg/dL BUN 19 mg/dL Creatinine 0.57 mg/dL Cr Clearance (Est) 144.73 mL/min Sodium 128.8 mmol/L Potassium 4.39 mmol/L Chloride 90.8 mmol/L CO2 35.1 mmol/L Calcium 8.4 mg/dL Protein, Total 6.20 g/dL Albumin 3.4 g/dL Bilirubin, Total 0.4 mg/dL Alkaline Phosphatase 93 IU/L AST (SGOT) 26 IU/L ALT (SGPT) 21 IU/L WBC 8.0 10^9/L RBC 3.7 10^12/L HGB 10.8 g/dL HCT 33.5 % MCV 90.5 fl MCH 29.2 pg MCHC 32.2 g/dL RDW 13.30 % Platelet Count 240.0 10^9/L MPV 9.6 fL Neutrophils (Gran) 6.65 10^9/L Lymphocytes 0.53 10^9/L Monocytes 0.80 10^9/L Eosinophils 0.01 10^9/L Basophils 0.00 10^9/L Manual Lymphocytes 6.6 % Manual Monocytes 10.0 % Manual Eosinophils 0.1 % Manual Basophils 0.0 % Problem List: 1. Small cell lung cancer, stage IVB (TX, N3, M1c). Staging PET/CT showed extensive disease including multiple pleural-based metastatic lesions in the right lung and bulky mediastinal lymph node involvement as well as liver and bony metastatic disease. A primary lesion was not clearly identified, but the pattern of metastatic disease was suggestive of a primary source in the right lung. 2. He underwent bronchoscopy/EBUS with FNA biopsy of right paratracheal mass on 04/06/2020. 3. COPD. 4. Hypertension. 5. Hyperlipidemia. 6. 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 Problems Addressed with this Encounter and Plan: Patient with small cell lung cancer, stage IVB (TX, N3, M1c), with extensive metastatic involvement by staging PET/CT. He began initial treatment with carboplatin/etoposide chemotherapy in combination with atezolizumab. He appeared to have a very good response by restaging CT scan after 2 cycles of treatment, though both cycles were complicated by neutropenia requiring growth factor support with Neupogen. He also had moderately severe anemia. There was evidence of continued response on his repeat CT scans after 4 cycles, though with very minimal further improvement compared to the CT after 2 cycles. With those findings he was recommended to continue with maintenance immunotherapy with atezolizumab administered at 3-week intervals. He began cycle 1 on 08/23/2020. He had no adverse effects, and he then continued treatment at 3-week intervals. As of 10/25/2020 he received his 8th cycle. At that point he was starting to have numbness and tingling in his legs. From there is neurologic symptoms continued to worsen. His evaluation was somewhat problematic, as there was evidence of progressive bony metastatic disease by CT scan but there was no evidence of cord compression and he initially refused MRI. He ultimately did have an MRI of the lumbar spine on 11/06/2020, but it did not show any site of cord compression. 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 On exam now he appears to have a mid thoracic sensory level, and I suspect there is a cord compression somewhere in the vicinity of T5. He is being scheduled now for MRI of the thoracic spine. However, at this point it is very unlikely that his neurologic deficit will be reversible. Furthermore, with his disease showing progression on combined chemotherapy/immunotherapy, the likelihood of benefit with further treatment of the small cell cancer is going to be low, and his overall prognosis is very poor. Signed By: Pedro Pablo Raymond M.D. <<Signature on File>>
== END 2020-11-15 10:28 | disposition home or self-care (01) ==
PROVIDERS: PCP Internal Medicine; Visit Provider Internal Medicine Medical Oncology
DX: C34.01 Malignant neoplasm of right main bronchus (principal); C77.8 Secondary and unspecified malignant neoplasm of lymph nodes of multiple regions; C78.7 Secondary malignant neoplasm of liver and intrahepatic bile duct; C79.51 Secondary malignant neoplasm of bone; J44.9 Chronic obstructive pulmonary disease, unspecified; I10 Essential (primary) hypertension; E78.5 Hyperlipidemia, unspecified; H81.03 Meniere's disease, bilateral; Z79.899 Other long term (current) drug therapy; Z92.21 Personal history of antineoplastic chemotherapy
CPT/HCPCS: 99215

== ENCOUNTER 2020-11-16 11:19 | Outpatient (CLI) | payer MEDICARE, SELFPAY ==
--- NOTE | 2020-11-16 11:22 | MR_ITS ---
WS: [id number] MRI THORACIC SPINE with and without contrast. HISTORY: LUNG CANCER;SPINAL CORD COMPRESSION, EST MID THORACIC LEVEL COMPARISON: CT thoracic spine 11/06/2020. TECHNIQUE: Multiplanar sequences are performed in sagittal and axial planes. Study performed with and without contrast. Patient has known metastatic disease to the spine. This study quality is limited due to motion artifa ct. Patient was coughing during this examination. Numerous metastatic lesions throughout the spine including T2, T5, T6, T7, T8, T9, T10, T11, T12 and L1. Metastasis extends into the posterior elements at several levels. Most significant involvement a t the T6, T7, T8-T9 and T10 vertebral bodies. This study is nondiagnostic to exclude cord compression. Focal enhancement and appears to be centered within the cord at the T2-3 level extending over length of 3.7 cm. Indeterminate findings suspicious for may be cord enlargement on the noncontrast sequences. Unfortunately there is some much motion be tween the axial and sagittal images cannot correlate areas of enhancement completely. I am suspicious there is a cord lesion. Small bilateral pleural effusions. Metastatic sites with tumor involving the ribs and adjacent pleura on the RIGHT at T8-9. This tumor measures 1.6 x 3.2 cm. Probably encroaching into the RIGHT nerve ro ot. Additional similar rib lesion on the RIGHT at T9-10. RIGHT paratracheal soft tissue mass measuring 4.0 x 3.0 cm. MR/MR thoracic spine wo/w [id number] IMPRESSION: 1. MRI thoracic spine is significantly limited nearly nondiagnostic for accura te determination of metastatic sites. 2. Suspicious but indeterminate for enhancing lesion centered within the thora cic cord at T2-3. 3. Numerous metastatic lesions within the thoracic vertebral bodies as describ ed above. 4. Expansile bone lesions with involvement of the pleura and the foramen at T8 -9 and T9-10 on the RIGHT. Suspect smaller similar lesion at T5.
[2020-11-16] MEDS: gadobenate dimeglumine 20 mL vial IV (12:46)
== END 2020-11-16 11:20 | disposition home or self-care (01) ==
LOC: RADSHAW 11:21
PROVIDERS: PCP Internal Medicine; Visit Provider Internal Medicine Medical Oncology
DX: C34.91 Malignant neoplasm of unspecified part of right bronchus or lung (principal)
CPT/HCPCS: 72157; A9577